=== PATIENT | male | born 1970 | race African-American/Black ===

== ENCOUNTER 2020-01-18 15:35 | Observation (INO) ==
[2020-01-18] MEDS ORDERED: SODIUM CHLORIDE 0.9% 1000ML 1,000 ML IV ONE (16:12)
[2020-01-18] MEDS ORDERED: FAMOTIDINE 20MG/5ML IV PUSH IV STA (16:12)
--- NOTE | 2020-01-18 16:17 | Emergency Department Note ---
History of Present Illness General Chief complaint: Throat Injury Stated complaint: DIFFICULTY SWALLOWING Time Seen by Provider: 01/18/20 15:53 Source: patient Mode of arrival: other Limitations: no limitations History of Present Illness Provider complaint: Neck swelling, vomiting Onset (ago): month(s) Radiation: non-radiation Maximum Pain Intensity: 0 Exacerbated By: + eating Associated symptoms: + chest pain and + weakness; no headaches and no shortness of breath Treatments prior to arrival: none This is a 49-year-old male who presents from local correction is complaining of several months of intermittent neck swelling, vomiting, weight loss, early satiety, and upper stomach irritation. Patient states the symptoms began happening intermittently and he tried to figure out if this was related to a certain food or temperature of food. Patient states it is progressively been getting worse. He is now down to eating only once a day because he does not want to vomit all the time. Patient states it feels as though the food goes down to the bottom of his chest/upper stomach and slowly gets stuck. He states approximately an hour after eating he will then vomit up everything he has just eaten. Patient denies noting any hematemesis. Patient denies any black or bloody stools. Patient denies any Co. abdominal pain. Patient admits to early satiety and a 25 pound weight loss over the last several months. Patient states he is frequently constipated and can only have a bowel movement if he takes a laxative. Patient states he has a twin brother who is currently hospitalized with heart problems. Patient states his father who is also a twin did have stomach cancer. Patient is a former smoker and former drinker. Patient was seen and evaluated here last night, was able to tolerate water at that time without any recurrent vomiting and was advised to follow-up with GI. Patient states he has never had an EGD or colonoscopy. Pt seen during a time of high acuity and national emergency pandemic while wearing PPE. Home Medications Home Medications Medication Instructions Recorded Confirmed Type Cetaphil 1 applic TOPICAL TID 06/19/19 01/18/20 History mirtazapine 45 mg PO HS 06/19/19 01/18/20 History aspirin [Ecotrin Low Strength] 81 mg PO QAM #30 tab 06/22/19 01/18/20 Rx atorvastatin 40 mg PO QAM #30 tab 06/22/19 01/18/20 Rx olopatadine 0.1 % eye drops 1 drops OP BID 11/28/19 01/18/20 History Lactobacillus acidophilus 0 mmu cells PO DAILY 01/18/20 01/18/20 History [Acidophilus] cetirizine [Zyrtec] 10 mg PO DAILY 01/18/20 01/18/20 History diphenhydramine HCl [Benadryl] 100 mg PO HS 01/18/20 01/18/20 History eplerenone 25 mg PO DAILY 01/18/20 01/18/20 History irbesartan 300 mg PO DAILY 01/18/20 01/18/20 History ketotifen fumarate 1 drp OPHTHALMIC (EYE) BID 01/18/20 01/18/20 History metoclopramide HCl [Reglan] 10 mg PO ACHS 01/18/20 01/18/20 History metoprolol tartrate 50 mg PO DAILY 01/18/20 01/18/20 History pantoprazole 40 mg PO DAILY 01/18/20 01/18/20 History sodium chloride [[place] Saline] 1 spray INTRANASAL BID 01/18/20 01/18/20 History sulfamethoxazole-trimethoprim 1 tab PO BID 01/18/20 01/18/20 History [Bactrim DS] Allergies Allergy/AdvReac Type Severity Reaction Status Date / Time fish derived Allergy Unknown Verified 01/17/20 02:27 shellfish derived Allergy Unknown Verified 01/18/20 16:47 Past Med/Surg History Medical History Anxiety Eczema History of alcohol abuse History of drug abuse History of tobacco use HTN (hypertension) Surgical History Status post tendon repair history left finger tendon repair Family History Brother Coronary heart disease [place] in early 40's Stroke, Onset Age: 42 Father Stroke Stomach cancer Mother Stroke Uncle Stomach cancer Social History (Updated 01/18/20 @ 20:07 by Shanda Herrera PA-C) Smoking Status: Former smoker Tobacco Type: Cigarettes Second Hand Exposure: No; Do You Dip or Chew Tobacco: No; Tobacco Cessation Education Requested by Patient: No Hx Alcohol Use: No Hx Substance Use: Yes Substance Use Type Other:: Quit 2012 - Prior cocaine, acid, mushrooms, marijuana Preferred Language: Azeri Communication Ability: Effective Improvement Rn Required: No Beliefs That Will Affect Care: None Current Living Situation: Other Current Living Situation Comment: [facility] Other Information That Helps Us Care for You: No Feels Safe at Home: Yes Safety Concerns: Feels Safe At This Time Review of Systems See HPI for pertinent positives & negatives. and A total of 10 systems reviewed and were otherwise negative Physical Exam Vital Signs Vital Signs - 24 hr 01/18/20 15:37 01/18/20 16:52 01/18/20 18:05 Temperature 36.8 C Temperature Source Oral Pulse Rate 87 Pulse Rate [Apical] 74 77 Pulse Rhythm [Apical] Regular Regular Pulse Strength [Apical] Normal Respiratory Rate 18 16 18 Respiratory Effort / Characteristics Non-Labored Non-Labored Spontaneous Respiratory Depth Normal Normal Respiratory Pattern Regular Blood Pressure 141/82 H Blood Pressure [Left Arm] 137/88 159/93 H Blood Pressure Mean 101 Blood Pressure Mean [Left Arm] 104 115 Blood Pressure Position [Left Arm] Sitting Lying Pulse Oximetry 96 97 100 Oxygen Delivery Method Room Air Room Air Room Air Sepsis Recent Fever Within 48 Hours No Sepsis New/Unexplained Change in Mental Status No Sepsis Action Taken by Nursing No Action Required 01/18/20 18:43 Temperature Temperature Source Pulse Rate Pulse Rate [Apical] 82 Pulse Rhythm [Apical] Regular Pulse Strength [Apical] Normal Respiratory Rate 18 Respiratory Effort / Characteristics Non-Labored Spontaneous Respiratory Depth Normal Respiratory Pattern Regular Blood Pressure Blood Pressure [Left Arm] 161/97 H Blood Pressure Mean Blood Pressure Mean [Left Arm] 118 Blood Pressure Position [Left Arm] Lying Pulse Oximetry 100 Oxygen Delivery Method Room Air Sepsis Recent Fever Within 48 Hours Sepsis New/Unexplained Change in Mental Status Sepsis Action Taken by Nursing GENERAL: alert, well appearing, well nourished, no distress, non-toxic EYE EXAM: normal conjunctiva, PERRL and EOM's grossly intact OROPHARYNX: no exudate, no erythema, lips, buccal mucosa, and tongue normal and mucous membranes are moist NECK: supple, no nuchal rigidity, no adenopathy, non-tender LUNGS: Clear to auscultation. Normal chest wall mechanics, no w/r/r HEART: no murmurs, S1 normal and S2 normal ABDOMEN: abdomen soft, non-tender, normo-active bowel sounds, no masses, no rebound or guarding. BACK: Back is symmetrical on inspection and there is no deformity, no midline tenderness, no CVA tenderness. SKIN: no rashes and no bruising UPPER EXTREMITIES: upper extremities are grossly normal. FROM, nml pulses b/l. LOWER EXTREMITIES: No pitting edema. FROM, nml pulses b/l. NEURO EXAM: Normal sensorium, cranial nerves II-XII grossly intact, normal speech, no gross weakness of arms, no gross weakness of legs. Gross sensation intact. Course Course 1839: Pt updated on results. 1919: Discussed with Dr. Soler. Administered Medications Aspirin (Aspirin 81 Mg Ectab) 81 mg PO QAM [facility] Stop: 02/18/20 08:59 Last Admin: 01/19/20 17:03 Dose: Not Given Documented by: [id number] Atorvastatin Calcium (Atorvastatin 40 Mg Tab) 40 mg PO QAM [facility] Stop: 02/18/20 08:59 Last Admin: 01/19/20 09:39 Dose: 40 mg Documented by: [id number] Cetirizine HCl (Cetirizine Hcl 10 Mg Tablet) 10 mg PO DAILY [facility] Stop: 02/18/20 08:59 Last Admin: 01/19/20 09:39 Dose: 10 mg Documented by: [id number] Sodium Chloride (Nss 1000ml) 1,000 mls @ 80 mls/hr IV .[id number] [facility] Stop: 01/20/20 09:29 Last Admin: 01/19/20 19:58 Dose: 80 mls/hr Documented by: [id number] Infusion: 01/19/20 19:58 Dose: 80 mls/hr Documented by: [id number] Admin: 01/19/20 09:37 Dose: 80 mls/hr Documented by: [id number] Irbesartan (Irbesartan 150 Mg Tab) 300 mg PO DAILY [facility] Stop: 02/18/20 08:59 Last Admin: 01/19/20 09:38 Dose: 300 mg Documented by: [id number] Metoclopramide HCl (Metoclopramide Hcl 10 Mg Tablet) 10 mg PO ACHS [facility] Stop: 02/17/20 21:13 Last Admin: 01/19/20 19:58 Dose: 10 mg Documented by: [id number] Admin: 01/19/20 17:04 Dose: 10 mg Documented by: [id number] Admin: 01/19/20 16:27 Dose: Not Given Documented by: [id number] Admin: 01/19/20 09:39 Dose: 10 mg Documented by: [id number] Admin: 01/18/20 21:47 Dose: 10 mg Documented by: [id number] Metoprolol Tartrate (Metoprolol Tartrate 50 Mg Tab) 50 mg PO DAILY [facility] Stop: 02/18/20 08:59 Last Admin: 01/19/20 09:48 Dose: 50 mg Documented by: [id number] Mirtazapine (Mirtazapine Soltab 15 Mg) 45 mg PO HS [facility] Stop: 02/17/20 21:13 Last Admin: 01/19/20 19:58 Dose: 45 mg Documented by: [id number] Admin: 01/18/20 21:47 Dose: 45 mg Documented by: [id number] Miscellaneous (Eplerenone~Order Awaiting Action) 1 ea N/A QS [facility] Stop: 02/17/20 21:29 Last Admin: 01/19/20 17:03 Dose: Not Given Documented by: [id number] Admin: 01/19/20 09:55 Dose: Not Given Documented by: [id number] Admin: 01/18/20 23:53 Dose: Not Given Documented by: [id number] Admin: 01/18/20 22:28 Dose: Not Given Documented by: [id number] Pantoprazole Sodium (Pantoprazole 40 Mg Tab) 40 mg PO BID [facility] Stop: 02/18/20 20:59 Last Admin: 01/19/20 19:57 Dose: 40 mg Documented by: [id number] Sodium Chloride (Sodium Chloride 0.65% Na Soln 45 Ml ([place])) 1 sprays NA BID [facility] Stop: 02/17/20 21:13 Last Admin: 01/19/20 19:57 Dose: Not Given Documented by: [id number] Admin: 01/19/20 09:36 Dose: 1 sprays Documented by: [id number] Admin: 01/18/20 22:42 Dose: 1 sprays Documented by: [id number] Discontinued Medications Famotidine (Famotidine 20mg/5ml Iv Push) 20 mg IV ONE [facility]A Stop: 01/18/20 16:13 Last Admin: 01/18/20 16:39 Dose: 20 mg Documented by: [id number] Fentanyl Citrate (Fentanyl Citrate 100 Mcg/2 Ml Vial) Confirm Administered Dose 100 mcg .ROUTE .STK-MED ONE Stop: 01/19/20 12:32 Last Admin: 01/19/20 19:29 Dose: Not Given Documented by: [id number] Sodium Chloride (Nss 1000ml) 1,000 mls @ 999 mls/hr IV .Q1H1M ONE Stop: 01/18/20 17:12 Last Infusion: 01/18/20 17:40 Dose: 0 mls/hr Documented by: [id number] Admin: 01/18/20 16:39 Dose: 999 mls/hr Documented by: [id number] Magnesium Sulfate/Dextrose (Magnesium Sulfate / D5w) 1 gm in 100 mls @ 100 mls/hr IV Q1H [facility] Stop: 01/18/20 20:32 Last Infusion: 01/18/20 20:49 Dose: 0 mls/hr Documented by: [id number] Admin: 01/18/20 19:49 Dose: 100 mls/hr Documented by: [id number] Infusion: 01/18/20 19:45 Dose: 100 mls/hr Documented by: [id number] Admin: 01/18/20 18:45 Dose: 100 mls/hr Documented by: [id number] Potassium Chloride 10 meq/ (Sodium Chloride) 1,005 mls @ 100 mls/hr IV .Q10H3M [facility] Stop: 02/17/20 18:44 Last Infusion: 01/19/20 01:36 Dose: 0 mls/hr Documented by: [id number] Admin: 01/18/20 19:13 Dose: 100 mls/hr Documented by: [id number] Potassium Chloride (K Mac / Wtr) 10 meq in 100 mls @ 100 mls/hr IV Q1H [facility] Stop: 01/18/20 22:17 Last Infusion: 01/19/20 00:39 Dose: 0 mls/hr Documented by: [id number] Admin: 01/18/20 23:39 Dose: 100 mls/hr Documented by: [id number] Infusion: 01/18/20 23:39 Dose: 100 mls/hr Documented by: [id number] Admin: 01/18/20 22:44 Dose: 100 mls/hr Documented by: [id number] Potassium Chloride/Dextrose/Sod Cl (D5nss + 20meq Kcl) 20 meq in 1,000 mls @ 75 mls/hr IV .[id number] [facility] Stop: 02/17/20 21:59 Last Infusion: 01/19/20 12:25 Dose: 0 mls/hr Documented by: [id number] Admin: 01/18/20 22:41 Dose: 75 mls/hr Documented by: [id number] Calcium Gluconate 1,000 mg/ (Sodium Chloride) 60 mls @ 240 mls/hr IV 1830 ONE Stop: 01/19/20 18:44 Last Infusion: 01/19/20 20:12 Dose: 0 mls/hr Documented by: [id number] Admin: 01/19/20 19:57 Dose: 240 mls/hr Documented by: [id number] Ioversol (Ioversol 100ml) 93 ml IV ONCE ONE Stop: 01/18/20 18:13 Last Admin: 01/18/20 18:13 Dose: 93 ml Documented by: [id number] Lidocaine HCl (Lidocaine Hcl 2% 2 Ml Vial/Amp(20mg/Ml)) Confirm Administered Dose 4 ml INFIL .STK-MED ONE Stop: 01/19/20 13:24 Last Admin: 01/19/20 19:29 Dose: Not Given Documented by: [id number] Magnesium Oxide (Magnesium Oxide 400 Mg Tab) 400 mg PO BID [facility] Stop: 02/17/20 20:59 Last Admin: 01/18/20 22:41 Dose: 400 mg Documented by: [id number] Miscellaneous (Cetaphil~Order Awaiting Action) 1 ea N/A QS [facility] Stop: 02/17/20 21:29 Last Admin: 01/19/20 09:52 Dose: Not Given Documented by: [id number] Admin: 01/18/20 23:53 Dose: Not Given Documented by: [id number] Admin: 01/18/20 22:28 Dose: Not Given Documented by: [id number] Miscellaneous (Ketotifen~Order Awaiting Action) 1 ea N/A QS [facility] Stop: 02/17/20 21:29 Last Admin: 01/19/20 09:54 Dose: Not Given Documented by: [id number] Admin: 01/18/20 23:53 Dose: Not Given Documented by: [id number] Admin: 01/18/20 22:28 Dose: Not Given Documented by: [id number] Miscellaneous (Olopatatdine 0.1%~Order Awaiting Action) 1 ea N/A QS [facility] Stop: 02/17/20 21:29 Last Admin: 01/19/20 09:54 Dose: Not Given Documented by: [id number] Admin: 01/18/20 23:53 Dose: Not Given Documented by: [id number] Admin: 01/18/20 22:29 Dose: Not Given Documented by: [id number] Pantoprazole Sodium (Pantoprazole 40 Mg Tab) 40 mg PO DAILY [facility] Stop: 02/18/20 08:59 Last Admin: 01/19/20 09:39 Dose: 40 mg Documented by: [id number] Phenylephrine HCl (Phenylephrine 100mcg/Ml 5ml Syr) Confirm Administered Dose 100 mcg .ROUTE .STK-MED ONE Stop: 01/19/20 13:24 Last Admin: 01/19/20 19:29 Dose: Not Given Documented by: [id number] Potassium Chloride (Potassium Chloride 20 Meq Tabcr) 40 meq PO NOW STA Stop: 01/18/20 18:32 Last Admin: 01/18/20 18:45 Dose: 40 meq Documented by: [id number] Potassium Chloride (Potassium Chloride 20 Meq/15 Ml Udc) 40 meq PO NOW [facility] Stop: 01/18/20 20:19 Last Admin: 01/18/20 22:42 Dose: 40 meq Documented by: [id number] Propofol (Propofol Iv Emulsion 10 Mg/Ml 20 Ml Vial) Confirm Administered Dose 400 mg IV .STK-MED ONE Stop: 01/19/20 13:24 Last Admin: 01/19/20 19:29 Dose: Not Given Documented by: [id number] Critical Care Time Critical Care Time: Yes Total Critical Care Time: 35 Critical care of 35 min performed to assess and manage high likelihood of life- threatening chest pain, involving labs and imaging performed with assessment to evaluate chest pain and electrolyte abnormality diagnosis with frequent reassessment. This time includes bedside time, treatment discussions with patient/family/consultants, documentation time and excludes procedure time. Medical Decision Making Differential Diagnosis Differential: Gastroenteritis, Food Borne, Esophageal Perforation, , Electrolyte Abnormality, Dehydration, Intraabdominal Infection, UTI/Pyelonephritis, Bowel Obstruction, Biliary Pathology, amongst other pathology entertained. Medical Records Attestation: I reviewed the patient's medical records. Home Medications Current Medication List: was personally reviewed by me Laboratory Data Attestation: I reviewed the patient's lab results. Result diagrams: 01/19/20 01:08 01/19/20 16:00 Lab Results 01/18/20 01/18/20 01/18/20 Range/Units 16:32 16:32 18:01 WBC 7.67 (4.8-10.8) K/uL RBC 4.91 (4.7-6.1) M/uL Hgb 14.3 (14.0-18.0) g/dL Hct 42.5 (42-52) % MCV 86.6 (80-100) fL MCH 29.1 (25-34) pg MCHC 33.6 (32-36) g/dL RDW Std Deviation 42.1 (36.4-46.3) fL RDW Coeff of Georgette 13.2 (11.5-14.5) % Plt Count 260 (130-400) K/uL MPV 11.5 H (7.4-10.4) fL Immature Gran % (Auto) 0.1 % Neut % (Auto) 48.8 % Lymph % (Auto) 35.6 % [place] % (Auto) 14.0 % Eos % (Auto) 1.2 % Baso % (Auto) 0.3 % Neut # (Auto) 3.75 (1.4-6.5) K/uL Lymph # (Auto) 2.73 (1.2-3.4) K/uL [place] # (Auto) 1.07 H (0.11-0.59) K/uL Eos # (Auto) 0.09 (0-0.5) K/uL Baso # (Auto) 0.02 (0-0.2) K/uL Immature Gran # (Auto) 0.01 (0.00-0.02) K/uL Sodium 133 L (136-145) mmol/L Potassium 2.1 L* (3.5-5.1) mmol/L Chloride 102 (98-107) mmol/L Carbon Dioxide 23 (21-32) mmol/L Anion Gap 8.0 (3-11) BUN 10 (7-18) mg/dl Creatinine 1.38 (0.6-1.4) mg/dl Est Cr Clr Drug Dosing 78.5 ml/min Est GFR ( Amer) 70.1 Est GFR (Non-Af Amer) 60.5 BUN/Creatinine Ratio 7.3 L (10-20) Glucose 108 H (70-99) mg/dl Calcium 9.3 (8.5-10.1) mg/dl Magnesium 1.0 L (1.8-2.4) mg/dl Total Bilirubin 0.8 (0.2-1) mg/dl AST 10 L (15-37) U/L ALT 31 (12-78) U/L Alkaline Phosphatase 83 (45-117) U/L Troponin I 0.050 H* (0-0.045) ng/ml Total Protein 8.9 H (6.4-8.2) gm/dl Albumin 4.2 (3.4-5.0) gm/dl Globulin 4.7 H (2.5-4.0) gm/dl Albumin/Globulin Ratio 0.9 (0.9-2) Lipase 227 (73-393) U/L TSH 0.572 (0.300-4.500) uIu/ml Imaging Data Radiologist's Impression: CT SCAN OF THE NECK WITH IV CONTRAST CLINICAL HISTORY: Intermittent neck swelling. COMPARISON STUDY: CT angiogram of the neck dated 06/19/2019. TECHNIQUE: Following the IV administration of 93 cc of Optiray 320, CT scan of the soft tissues of the neck was performed from the skull base to the upper chest. Images are reviewed in the axial, sagittal, and coronal planes. IV contrast was administered without complication. A dose lowering technique was utilized adhering to the principles of ALARA. CT DOSE: 1834.20 mGy.cm FINDINGS: Pharynx: The nasopharynx, oropharynx, and laryngeal pharynx are normal in appearance. The pharyngeal airway is widely patent. There is no evidence of mass lesion. The vocal cords are symmetric. The parapharyngeal fat is well maintained. The prevertebral/retropharyngeal soft tissues are within normal limits. The epiglottis is normal. Lymphadenopathy: No cervical lymphadenopathy is seen Thyroid: Normal in size and attenuation. Salivary glands: The parotid and submandibular glands are within normal limits. Brain parenchyma: The visualized brain parenchyma at the skull base is normal in appearance. Vascular structures: The carotid arteries and jugular veins are patent bilaterally. Skeletal structures: Imaged portions of the calvarium at the skull base are within normal limits. The cervical spine appears intact. No lytic or blastic lesion is seen. Orbits: The bony orbits are intact. Orbital contents are normal in appearance. Sinuses and mastoids: The visualized paranasal sinuses are clear. The mastoid air cells are well pneumatized. Lung apices: Visualized apical lung parenchyma is clear. IMPRESSION: No acute abnormality is identified. ACT 112: Negative or not required by law. Electronically signed by: Riaz Wise M.D. 01/18/2020 6:[address] SCAN OF THE ABDOMEN AND PELVIS WITH IV CONTRAST CLINICAL HISTORY: Weight loss. Early satiety. Vomiting. COMPARISON STUDY: No priors. TECHNIQUE: Following the IV administration of 93 cc of Optiray 320, CT scan of the abdomen and pelvis is performed from the lung bases to the proximal femora. Images are reviewed in the axial, sagittal, and coronal planes. IV contrast was administered without complication. A dose lowering technique was utilized adhering to the principles of ALARA. FINDINGS: Lung bases: The heart is normal in size and without pericardial effusion. The lung bases are clear. There is a small hiatal hernia. Liver: The contrast-enhanced liver is normal in size, contour, and attenuation. There is no intrahepatic biliary ductal dilatation. The hepatic veins and portal veins are patent. Gallbladder: Unremarkable. Spleen: Normal in size and attenuation. Pancreas: Unremarkable. Adrenal glands: Unremarkable. Kidneys: The contrast enhanced kidneys are normal in size and without hydr onephrosis. The kidneys enhance symmetrically. Abdominal vasculature: The abdominal aorta is normal in course and caliber noting scattered foci of atherosclerotic calcification. Bowel: There is no bowel obstruction. There are scattered colonic diverticula without CT evidence of acute diverticulitis. The appendix is well-visualized and normal. Peritoneum: There is no intraperitoneal free air or abdominal ascites. There is a fat-containing umbilical hernia. A fat-containing supraumbilical hernia seen on image #[id number]. Lymphadenopathy: None. Pelvic viscera: The bladder wall appears thickened and trabeculated. There is mild pericystic stranding. The prostate and seminal vesicles are normal as imaged. Skeletal structures: No lytic or blastic lesions are seen. IMPRESSION: 1. The bladder wall is thickened and trabeculated suggesting chronic outlet obstruction. Mild pericystic stranding is noted. Correlation with urinalysis is recommended. 2. There is no bowel obstruction. 3. Additional findings as above. ACT 112: Negative or not required by law. Electronically signed by: Riaz Wise M.D. 01/18/2020 7:04 PM ECG Data Attestation: I personally reviewed and interpreted this ECG as follows: Indication: + chest pain Rate (beats per minute): 75 Rhythm: + normal sinus ECG [place]: + Normal ECG ST segments: + T-wave inversions (V4-6) Comparison ECG Date: from (06/22/2019) Change: no significant change Blood Pressure Blood Pressure Findings: Normal blood pressure MDM Narrative This is a 49-year-old male presents emergency department with concern for recurrent vomiting, weight loss, and dysphasia. Patient states symptoms have been going on for many weeks and progressively getting worse. Patient initially seen and evaluated and sent back to the correction to follow-up with GI. Patient feels the symptoms are getting worse and is now having increased chest pain with this. Patient with stable vital signs here. Labs sent, CTs performed, EKG obtained. Patient found to have significant electrolyte abnormalities, likely due to poor p.o. intake or subsequent vomiting without absorption of electrolytes. Patient's potassium was 2.1 and magnesium 1.0. Patient started on repletion while in the emergency room. Patient's other CT imaging did not reveal any additional acute pathology. Due to concern for patient's worsening symptoms, and acute electrolyte abnormalities, case was discussed with hospitalist for additional evaluation management. I suspect patient would benefit from GI evaluation and likely EGD. Patient was found to have a mildly elevated troponin. Patient had no other symptoms to suggest ACS and his EKG was unchanged. Patient does have risk factors for coronary artery disease. No evidence of perforation or GI bleed. Patient made hemodynamically stable in the emergency room. An order was placed for continuous cardiac monitoring. The monitor shows a rate of 68_ with _normal sinus_ rhythm. Impression & Plan Vomiting, Elevated troponin, Hypokalemia, Dysphagia, Hypomagnesemia, HTN (hypertension) Discharge Plan Visit Data Chief Complaint: Throat Injury Stated Complaint: DIFFICULTY SWALLOWING ED Provider: Mariluz Garcia Discharge Problem: Vomiting, Elevated troponin, Hypokalemia, Dysphagia, Hypomagnesemia, HTN (hypertension) Patient Disposition: Admitted As Inpatient Discharge Instructions Interventions: ED Discharge Assessment Last Done: 01/18/20 20:24 Discharge Problem: Vomiting Qualifiers: Vomiting type: unspecified Vomiting Intractability: non-intractable Nausea presence: with nausea Qualified Code(s): R11.2 - Nausea with vomiting, unspecified HTN (hypertension) Qualifiers: Hypertension type: essential hypertension Qualified Code(s): I10 - Essential (primary) hypertension
[2020-01-18 16:41] LABS: Basophils # (auto) 0.02 K/uL (0-0.2); Basophils % (auto) 0.3 %; Eosinophils # (auto) 0.09 K/uL (0-0.5); Eosinophils % (auto) 1.2 %; Hematocrit (blood only) 42.5 % (42-52); Hemoglobin 14.3 g/dL (14.0-18.0); Immature Granulocytes # (auto) 0.01 K/uL (0.00-0.02); Immature Granulocytes % (auto) 0.1 %; Lymphocytes # (auto) 2.73 K/uL (1.2-3.4); Lymphocytes % (auto) 35.6 %; Mean Corpuscular Hemoglobin 29.1 pg (25-34); Mean Corpuscular Hgb Conc 33.6 g/dL (32-36); Mean Corpuscular Volume 86.6 fL (80-100); Mean Platelet Volume 11.5 fL (7.4-10.4); Monocytes # (auto) 1.07 K/uL (0.11-0.59); Neutrophils # (auto) 3.75 K/uL (1.4-6.5); Neutrophils % (auto) 48.8 %; Platelet Count 260 K/uL (130-400); RDW Coefficient of Variation 13.2 % (11.5-14.5); RDW Standard Deviation 42.1 fL (36.4-46.3); Red Blood Count 4.91 M/uL (4.7-6.1); White Blood Count 7.67 K/uL (4.8-10.8)
[2020-01-18 17:27] LABS: Albumin Globulin Ratio 0.9 (0.9-2); Albumin Level 4.2 gm/dl (3.4-5.0); BUN Creatinine Ratio 7.3 (10-20); Bilirubin,Total 0.8 mg/dl (0.2-1); Calcium 9.3 mg/dl (8.5-10.1); Creatinine Clr Calc Pharmacy 78.5 ml/min; Est GFR (African American) 70.1; Est GFR (Non-African American) 60.5; Globulin 4.7 gm/dl (2.5-4.0); Thyroid Stimulating Hormone 0.572 uIu/ml (0.300-4.500); Total Protein 8.9 gm/dl (6.4-8.2); Troponin I 0.05 ng/ml (0-0.045)
[2020-01-18] MEDS ORDERED: IOVERSOL 100ml IV ONE (18:12)
[2020-01-18 18:31] LABS: Potassium 2.1 mmol/L (3.5-5.1)
[2020-01-18] MEDS ORDERED: POTASSIUM CHLORIDE 20 MEQ TABCR PO STA (18:31)
[2020-01-18] MEDS ORDERED: POTASSIUM CHLORIDE 10 MEQ in SODIUM CHLORIDE 0.9% 1000ML 1,000 ML IV SCH (18:45)
[2020-01-18] MEDS: MAGNESIUM SULFATE / D5W 1 GM/100 ML BAG IV SCH ×2 (18:45→19:49)
--- NOTE | 2020-01-18 18:58 | CT Scan Report ---
CT SCAN OF THE NECK WITH IV CONTRAST CLINICAL HISTORY: Intermittent neck swelling. COMPARISON STUDY: CT angiogram of the neck dated 06/19/2019. TECHNIQUE: Following the IV administration of 93 cc of Optiray 320, CT scan of the soft tissues of th e neck was performed from the skull base to the upper chest. Images are reviewed in the axial, sagitt al, and coronal planes. IV contrast was administered without complication. A dose lowering techniqu e was utilized adhering to the principles of ALARA. CT DOSE: 1834.20 mGy.cm FINDINGS: Pharynx: The nasopharynx, oropharynx, and laryngeal pharynx are normal in appearance. The pharyngeal airway is widely patent. There is no evidence of mass lesion. The vocal cords are symmetric. The para pharyngeal fat is well maintained. The prevertebral/retropharyngeal soft tissues are within normal li mits. The epiglottis is normal. Lymphadenopathy: No cervical lymphadenopathy is seen Thyroid: Normal in size and attenuation. Salivary glands: The parotid and submandibular glands are within normal limits. Brain parenchyma: The visualized brain parenchyma at the skull base is normal in appearance. Vascular structures: The carotid arteries and jugular veins are patent bilaterally. Skeletal structures: Imaged portions of the calvarium at the skull base are within normal limits. The cervical spine appears intact. No lytic or blastic lesion is seen. Orbits: The bony orbits are intact. Orbital contents are normal in appearance. Sinuses and mastoids: The visualized paranasal sinuses are clear. The mastoid air cells are well pneu matized. Lung apices: Visualized apical lung parenchyma is clear. IMPRESSION: No acute abnormality is identified. ACT 112: Negative or not required by law. Electronically signed by: Riaz Wise M.D. 01/18/2020 6:56 PM
--- NOTE | 2020-01-18 19:05 | CT Scan Report ---
CT SCAN OF THE ABDOMEN AND PELVIS WITH IV CONTRAST CLINICAL HISTORY: Weight loss. Early satiety. Vomiting. COMPARISON STUDY: No priors. TECHNIQUE: Following the IV administration of 93 cc of Optiray 320, CT scan of the abdomen and pelvi s is performed from the lung bases to the proximal femora. Images are reviewed in the axial, sagittal , and coronal planes. IV contrast was administered without complication. A dose lowering technique wa s utilized adhering to the principles of ALARA. FINDINGS: Lung bases: The heart is normal in size and without pericardial effusion. The lung bases are clear. T here is a small hiatal hernia. Liver: The contrast-enhanced liver is normal in size, contour, and attenuation. There is no intrahepa tic biliary ductal dilatation. The hepatic veins and portal veins are patent. Gallbladder: Unremarkable. Spleen: Normal in size and attenuation. Pancreas: Unremarkable. Adrenal glands: Unremarkable. Kidneys: The contrast enhanced kidneys are normal in size and without hydronephrosis. The kidneys enh ance symmetrically. Abdominal vasculature: The abdominal aorta is normal in course and caliber noting scattered foci of a therosclerotic calcification. Bowel: There is no bowel obstruction. There are scattered colonic diverticula without CT evidence of acute diverticulitis. The appendix is well-visualized and normal. Peritoneum: There is no intraperitoneal free air or abdominal ascites. There is a fat-containing umbi lical hernia. A fat-containing supraumbilical hernia seen on image #[id number]. Lymphadenopathy: None. Pelvic viscera: The bladder wall appears thickened and trabeculated. There is mild pericystic strandi ng. The prostate and seminal vesicles are normal as imaged. Skeletal structures: No lytic or blastic lesions are seen. IMPRESSION: 1. The bladder wall is thickened and trabeculated suggesting chronic outlet obstruction. Mild pericys tic stranding is noted. Correlation with urinalysis is recommended. 2. There is no bowel obstruction. 3. Additional findings as above. ACT 112: Negative or not required by law. Electronically signed by: Riaz Wise M.D. 01/18/2020 7:04 PM
--- NOTE | 2020-01-18 20:03 | History & Physical Report ---
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 -Dysphagia, vomiting, early satiety and a 20 lb weight loss in past month -No acute abnormality on CT soft tissue neck or CT abdomen pelvis -Ddx dysmotility issue in setting of possible amyloid disease of heart vs malignant process. + Family h/o stomach cancer -NPO except crushed medications, routine GI consult, IV fluids (2) Hypomagnesemia: (3) Hypokalemia: Initial K of 2.1 and Mg of 1.0. Replacing with repeat labs at 0100 (4) Left arm weakness: Transient episode of left arm weakness this morning that resolved spontaneously -No neurological deficits on exam. History of CVA in the past -CT head, neuro checks. Consider MRI brain if symptoms persist (5) Elevated troponin: Troponin persistently elevated in the past. Has decreased from 0.065 yesterday to 0.050 today. 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 Concern for amyloid heart muscle disease in the past. Recommended to f/u with oncology but has not yet been seen (7) HTN (hypertension): Continue eplerenone, irbesartan, metoprolol tartrate (8) History of CVA (cerebrovascular accident): Continue aspirin, statin DVT Ppx: SCDs in setting of possible procedure tomorrow Code status: FULL PCP: SANDY Rodriguez Dispo: Admitted to PCU. Discharge planning ordered. Patient seen in collaboration with Dr. Christianson. Please see addendum. 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 Initially presented to ED last night and was discharged home with GI follow up in clinic but symptoms have worsened. After eating, patient feels that his neck swells and food gets stuck. As difficulty swallowing has gotten worse, patient has been dissolving pills in liquids so they don't get stuck in throat. Has been regurgitating foods and tolerates one meal per day, endorsing early satiety. Denies issues swallowing liquids. Was taking Bactrim for "bacteria in stomach" but stopped taking 2 days ago. Denies hematemesis, hemoptysis, melena or hematochezia. Approximate 20 pound weight loss in one month as well as constipation. Also endorsed left arm weakness this morning that has since resolved. No other neurological symptoms. Denies fever, chills, lightheadedness, syncope, chest pain, palpitations, SOB, dysuria or diarrhea. History of alcohol and tobacco use. Denies previous EGD/colonoscopy. History of stomach cancer in both father and uncle. Allergies Allergy/AdvReac Type Severity Reaction Status Date / Time fish derived Allergy Unknown Verified 01/17/20 02:27 shellfish derived Allergy Unknown Verified 01/18/20 16:47 Home Medications Home Medications Medication Instructions Recorded Confirmed Type Cetaphil 1 applic TOPICAL TID 06/19/19 01/18/20 History mirtazapine 45 mg PO HS 06/19/19 01/18/20 History aspirin [Ecotrin Low Strength] 81 mg PO QAM #30 tab 06/22/19 01/18/20 Rx atorvastatin 40 mg PO QAM #30 tab 06/22/19 01/18/20 Rx olopatadine 0.1 % eye drops 1 drops OP BID 11/28/19 01/18/20 History Lactobacillus acidophilus 0 mmu cells PO DAILY 01/18/20 01/18/20 History [Acidophilus] cetirizine [Zyrtec] 10 mg PO DAILY 01/18/20 01/18/20 History diphenhydramine HCl [Benadryl] 100 mg PO HS 01/18/20 01/18/20 History eplerenone 25 mg PO DAILY 01/18/20 01/18/20 History irbesartan 300 mg PO DAILY 01/18/20 01/18/20 History ketotifen fumarate 1 drp OPHTHALMIC (EYE) BID 01/18/20 01/18/20 History metoclopramide HCl [Reglan] 10 mg PO ACHS 01/18/20 01/18/20 History metoprolol tartrate 50 mg PO DAILY 01/18/20 01/18/20 History pantoprazole 40 mg PO DAILY 01/18/20 01/18/20 History sodium chloride [Raymond Saline] 1 spray INTRANASAL BID 01/18/20 01/18/20 History sulfamethoxazole-trimethoprim 1 tab PO BID 01/18/20 01/18/20 History [Bactrim DS] Past Med/Surg History Medical History Anxiety Eczema History of alcohol abuse History of drug abuse History of tobacco use HTN (hypertension) Surgical History Status post tendon repair history left finger tendon repair Family History Brother Coronary heart disease [place] in early 40's Stroke, Onset Age: 42 Father Stroke Stomach cancer Mother Stroke Uncle Stomach cancer Social History (Updated 01/18/20 @ 20:07 by Shanda Herrera PA-C) Smoking Status: Former smoker Tobacco Type: Cigarettes Hx Alcohol Use: No Hx Substance Use: Yes (former use but not for 10 years ) Substance Use Type Other:: Quit 2011 - Prior cocaine, acid, mushrooms, marijuana Current Living Situation: Other Current Living Situation Comment: correctional facility Feels Safe at Home: Yes Review of Systems Review of Systems: At least ten systems reviewed and negative except as noted in the HPI. Physical Exam Physical Exam: Please see Dr. Christianson's addendum for physical exam details. Results & Data Results & Data ([facility]) Vital Signs (Past 12 Hours) Vital Signs Temp Pulse Pulse Resp BP BP Pulse Ox 01/18/20 19:30 88 26 H 138/115 H 97 01/18/20 19:00 81 23 147/103 H 98 01/18/20 18:43 82 18 161/97 H 100 01/18/20 18:05 77 18 159/93 H 100 01/18/20 16:52 74 16 137/88 97 01/18/20 15:37 36.8 C 87 18 141/82 H 96 Laboratory Results Short CBC 01/18/20 01/18/20 01/18/20 Range/Units 16:32 16:32 18:01 WBC 7.67 (4.8-10.8) K/uL RBC 4.91 (4.7-6.1) M/uL Hgb 14.3 (14.0-18.0) g/dL Hct 42.5 (42-52) % MCV 86.6 (80-100) fL MCH 29.1 (25-34) pg MCHC 33.6 (32-36) g/dL RDW Std Deviation 42.1 (36.4-46.3) fL RDW Coeff of Georgette 13.2 (11.5-14.5) % Plt Count 260 (130-400) K/uL MPV 11.5 H (7.4-10.4) fL Immature Gran % (Auto) 0.1 % Neut % (Auto) 48.8 % Lymph % (Auto) 35.6 % Conway % (Auto) 14.0 % Eos % (Auto) 1.2 % Baso % (Auto) 0.3 % Neut # (Auto) 3.75 (1.4-6.5) K/uL Lymph # (Auto) 2.73 (1.2-3.4) K/uL Conway # (Auto) 1.07 H (0.11-0.59) K/uL Eos # (Auto) 0.09 (0-0.5) K/uL Baso # (Auto) 0.02 (0-0.2) K/uL Immature Gran # (Auto) 0.01 (0.00-0.02) K/uL Sodium 133 L (136-145) mmol/L Potassium 2.1 L* (3.5-5.1) mmol/L Chloride 102 (98-107) mmol/L Carbon Dioxide 23 (21-32) mmol/L Anion Gap 8.0 (3-11) BUN 10 (7-18) mg/dl Creatinine 1.38 (0.6-1.4) mg/dl Est Cr Clr Drug Dosing 78.5 ml/min Est GFR ( Amer) 70.1 Est GFR (Non-Af Amer) 60.5 BUN/Creatinine Ratio 7.3 L (10-20) Glucose 108 H (70-99) mg/dl Calcium 9.3 (8.5-10.1) mg/dl Magnesium 1.0 L (1.8-2.4) mg/dl Total Bilirubin 0.8 (0.2-1) mg/dl AST 10 L (15-37) U/L ALT 31 (12-78) U/L Alkaline Phosphatase 83 (45-117) U/L Troponin I 0.050 H* (0-0.045) ng/ml Total Protein 8.9 H (6.4-8.2) gm/dl Albumin 4.2 (3.4-5.0) gm/dl Globulin 4.7 H (2.5-4.0) gm/dl Albumin/Globulin Ratio 0.9 (0.9-2) Lipase 227 (73-393) U/L TSH 0.572 (0.300-4.500) uIu/ml BMP 01/18/20 01/18/20 16:32 18:01 Sodium 133 L Potassium 2.1 L* Chloride 102 Carbon Dioxide 23 BUN 10 Creatinine 1.38 Glucose 108 H Calcium 9.3 Cardiac Enzymes 01/18/20 Range/Units 16:32 Troponin I 0.050 H* (0-0.045) ng/ml Liver Function 01/18/20 01/18/20 Range/Units 16:32 18:01 Total Bilirubin 0.8 (0.2-1) mg/dl AST 10 L (15-37) U/L ALT 31 (12-78) U/L Alkaline Phosphatase 83 (45-117) U/L Albumin 4.2 (3.4-5.0) gm/dl Diagnostic Findings Soft tissue neck CT: IMPRESSION: No acute abnormality is identified. CT abd/pelvis: IMPRESSION: 1. The bladder wall is thickened and trabeculated suggesting chronic outlet obstruction. Mild pericystic stranding is noted. Correlation with urinalysis is recommended. 2. There is no bowel obstruction. 3. Additional findings as above. Code Status & VTE Plan VTE Prophylaxis Plan VTE Prophylaxis will be ordered: Yes Supervising Physician Co-Signing Physician Notes Attending Addendum: care coordinated with Chris Wallace and Shanda Herrera please refer to their notes for full details, I agree with their notes patient seen and examined, records reviewed by myself as well on exam, patient seen resting in bed, sitting up reports progressive dysphagia, odynophagia for the past two months, more on solids, and recently experiencing regurgitation, weight loss denies abdominal pain, hematochezia, melena, hematemesis also reports intermittent episodes of left arm numbness, no other focal neurologic deficits no other symptoms VS noted and reviewed oriented x 3, not in distress, speaks in sentences with no effort nor accessory muscle use head and neck: no masses, lymphadenopathy normal rate, regular rhythm, no murmurs clear breath sounds bilaterally non distended, soft, nontender no bipedal edema, erythema, warmth no neuro deficits WBC 7.6 Hg 14[address] abd/pelvis: 1. The bladder wall is thickened and trabeculated suggesting chronic outlet obstruction. Mild pericystic stranding is noted. Correlation with urinalysis is recommended. 2. There is no bowel obstruction. 3. Additional findings as above. Soft Tissue Neck CT: IMPRESSION: No acute abnormality is identified. ASSESSMENT AND PLAN DYSPHAGIA R/O ESOPHAGEAL OBSTRUCTION, STRICTURE, DYSMOTILITY, MASS NPO except meds, IV fluids GI consult, possible EGD tomorrow HYPOKALEMIA, HYPOMAGNESEMIA from poor oral intake replete with PO and IV K and Mg LEFT ARM NUMBNESS, INTERMITTENT HISTORY OF CVA 05/2019 CT head ordered continue ASA other diagnoses and plan of care as per FABIOLA Herrera's notes Zander Christianson MD (1) Dysphagia Dysphagia type: unspecified Qualified Code(s): R13.10 - Dysphagia, unspecified (2) HTN (hypertension) Hypertension type: essential hypertension Qualified Code(s): I10 - Essential (primary) hypertension
[2020-01-18] MEDS ORDERED: POTASSIUM CHLORIDE 20 MEQ/15 ML UDC PO STA (20:18)
--- NOTE | 2020-01-18 20:53 | CT Scan Report ---
CT SCAN OF THE BRAIN WITHOUT IV CONTRAST CLINICAL HISTORY: Left upper extremity weakness. COMPARISON STUDY: CT of the brain dated 06/19/2019. MRI of the brain dated 06/20/2019. TECHNIQUE: Unenhanced axial CT scan of the brain is performed from the vertex to the skull base. A d ose lowering technique was utilized adhering to the principles of ALARA. There is residual contrast t hroughout the vasculature from today's earlier examination. CT DOSE: 537.48 mGy.cm FINDINGS: Brain parenchyma: The brain parenchyma is normal in appearance. There is no hemorrhage, mass effect, or evidence of acute territorial ischemia by CT criteria. Lipscomb-white matter differentiation is preser dana. No extra-axial fluid collection is seen. Ventricles, sulci, cisterns: Normal in configuration. Intracranial vasculature: The visualized intracranial vasculature at the skull base is normal in appe arance. Calvarium: Unremarkable. Sinuses and mastoids: The visualized paranasal sinuses are clear. The mastoid air cells are well pneu matized. Orbits: The bony orbits are grossly intact. IMPRESSION: There is no hemorrhage, mass effect, or evidence of acute territorial ischemia by CT ernie black. ACT 112: Negative or not required by law. Electronically signed by: Riaz Wise M.D. 01/18/2020 8:51 PM
[2020-01-18] MEDS ORDERED: MAGNESIUM OXIDE 400 MG TAB PO SCH (21:00)
[2020-01-18] MEDS ORDERED: ONDANSETRON INJ 2 MG/ML 2 ML VIAL IV PRN (21:14)
[2020-01-18] MEDS: MIRTAZAPINE SOLTAB 15 MG PO SCH (21:47)
[2020-01-18] MEDS: METOCLOPRAMIDE HCL 10 MG TABLET PO SCH (21:47)
[2020-01-18] MEDS ORDERED: D5NSS + 20MEQ KCL 20 MEQ/1,000 ML BAG IV SCH (22:00)
[2020-01-18] MEDS: EPLERENONE~ORDER AWAITING ACTION SCH ×2 (22:28→23:53)
[2020-01-18] MEDS: KETOTIFEN~ORDER AWAITING ACTION SCH ×2 (22:28→23:53)
[2020-01-18] MEDS: SODIUM CHLORIDE 0.65% NA SOLN 45 ML (OCEAN) SCH (22:42)
[2020-01-18] MEDS: POTASSIUM CHLORIDE / WTR 10 MEQ/100 ML PLCT IV SCH ×2 (22:44→23:39)
[2020-01-19 01:24] LABS: Hematocrit (blood only) 39.7 % (42-52); Hemoglobin 13.3 g/dL (14.0-18.0); Mean Corpuscular Hemoglobin 29.6 pg (25-34); Mean Corpuscular Hgb Conc 33.5 g/dL (32-36); Mean Corpuscular Volume 88.4 fL (80-100); Mean Platelet Volume 11.5 fL (7.4-10.4); Platelet Count 251 K/uL (130-400); RDW Coefficient of Variation 13.2 % (11.5-14.5); RDW Standard Deviation 42.9 fL (36.4-46.3); Red Blood Count 4.49 M/uL (4.7-6.1); White Blood Count 6.29 K/uL (4.8-10.8)
[2020-01-19 02:26] LABS: Albumin Globulin Ratio 0.9 (0.9-2); Albumin Level 3.8 gm/dl (3.4-5.0); BUN Creatinine Ratio 6.4 (10-20); Bilirubin,Total 0.5 mg/dl (0.2-1); Calcium 8.6 mg/dl (8.5-10.1); Creatinine Clr Calc Pharmacy 89.6 ml/min; Est GFR (African American) 82.1; Est GFR (Non-African American) 70.9; Globulin 4.1 gm/dl (2.5-4.0); Magnesium 2.6 mg/dl (1.8-2.4); Potassium 5.2 mmol/L (3.5-5.1); Total Protein 7.9 gm/dl (6.4-8.2)
--- NOTE | 2020-01-19 08:35 | Electrocardiogram Report ---
Test Reason : Blood Pressure : / mmHG Vent. Rate : 075 BPM Atrial Rate : 075 BPM P-R Int : 158 ms QRS Dur : 116 ms QT Int : 408 ms P-R-T Axes : 029 031 017 degrees QTc Int : 455 ms Normal sinus rhythm Left atrial enlargement Left ventricular hypertrophy with QRS widening with repolarization abnormality Incomplete right bundle branch block Abnormal ECG When compared with ECG of 22-JUN-2019 10:53, Right bundle branch block is no longer complete Confirmed by Joseph Douglas ([id number]) on 01/19/2020 8:35:09 AM Referred By: Jennifer DELGADO Confirmed By:Joseph Douglas
--- NOTE | 2020-01-19 08:36 | Electrocardiogram Report ---
Test Reason : Blood Pressure : / mmHG Vent. Rate : 066 BPM Atrial Rate : 066 BPM P-R Int : 166 ms QRS Dur : 118 ms QT Int : 438 ms P-R-T Axes : 048 072 268 degrees QTc Int : 459 ms Normal sinus rhythm Left atrial enlargement Right bundle branch block Left ventricular hypertrophy with QRS widening and repolarization abnormality Abnormal ECG When compared with ECG of 18-JAN-2020 16:47, Right bundle branch block is now complete Otherwise no significant change Confirmed by Joseph Douglas ([id number]) on 01/19/2020 8:35:59 AM Referred By: Jennifer SCI Confirmed By:Joseph Douglas
[2020-01-19] MEDS ORDERED: PANTOprazole 40 MG TAB PO SCH (09:00)
[2020-01-19] MEDS ORDERED: IRBESARTAN 150 MG TAB PO SCH (09:00)
[2020-01-19] MEDS: SODIUM CHLORIDE 0.65% NA SOLN 45 ML (OCEAN) SCH ×2 (09:36→19:57)
[2020-01-19] MEDS: SODIUM CHLORIDE 0.9% 1000ML 1,000 ML IV SCH ×2 (09:37→19:58)
[2020-01-19] MEDS: CETIRIZINE HCL 10 MG TABLET PO SCH (09:39)
[2020-01-19] MEDS: METOCLOPRAMIDE HCL 10 MG TABLET PO SCH ×4 (09:39→19:58)
[2020-01-19] MEDS: ATORVASTATIN 40 MG TAB PO SCH (09:39)
[2020-01-19] MEDS: METOPROLOL TARTRATE 50 MG TAB PO SCH (09:48)
[2020-01-19] MEDS: KETOTIFEN~ORDER AWAITING ACTION SCH (09:54)
[2020-01-19] MEDS: EPLERENONE~ORDER AWAITING ACTION SCH ×3 (09:55→23:33)
--- NOTE | 2020-01-19 10:36 | Gastrointestinal Consultation ---
Date of Consultation January 19, 2020 Assessment & Plan (1) Dysphagia: -Keep NPO -EGD today -Continue Pantoprazole 40 mg daily--pending EGD results, may change this recommendation. (2) Unintentional weight loss: Supervising Physician Co-Signing Physician Notes Agree with ASH Almanza Abd: Soft, NT, ND, +BS Continue current therapy Proceed with EGD now History of Present Illness Reason for Consultation: Dysphagia Attending Physician: Christiano Gardner MD History of Present Illness Patient is a 49 yo incarcerated male who presents to [facility]. GI has been consulted due to ongoing dysphagia that has worsened over months. He reports solid food dysphagia. Denies issues with liquids. He notes that this has affected his po intake. He reports that he eats 1 meal per day due to the dysphagia. He reports a 20 lb weight loss in the course of several months. He reports he was taking Prilosec in [facility] but it was not helping his swallowing. He denies heartburn or reflux. He does report a family history of gastric cancer (father and uncle). Patient denies abdominal pain but reports constipation which has been treated with Lactulose. He denies melena or hematemesis. Denies hematochezia. He has a past medical history of CVA, Cardiomyopathy, amyloid heart muscle disease, hypertension, and tobacco/drug/alcohol abuse. A CT scan of the abdomen/pelvis and neck did not indicate any acute GI concerns. His H/H is 13.3/39.7. He denies NSAID use. Allergies Allergy/AdvReac Type Severity Reaction Status Date / Time fish derived Allergy Unknown Verified 01/17/20 02:27 shellfish derived Allergy Unknown Verified 01/18/20 16:47 Home Medications Home Medications Medication Instructions Recorded Confirmed Type Cetaphil 1 applic TOPICAL TID 06/19/19 01/18/20 History mirtazapine 45 mg PO HS 06/19/19 01/18/20 History aspirin [Ecotrin Low Strength] 81 mg PO QAM #30 tab 06/22/19 01/18/20 Rx atorvastatin 40 mg PO QAM #30 tab 06/22/19 01/18/20 Rx olopatadine 0.1 % eye drops 1 drops OP BID 11/28/19 01/18/20 History Lactobacillus acidophilus 0 mmu cells PO DAILY 01/18/20 01/18/20 History [Acidophilus] cetirizine [Zyrtec] 10 mg PO DAILY 01/18/20 01/18/20 History diphenhydramine HCl [Benadryl] 100 mg PO HS 01/18/20 01/18/20 History eplerenone 25 mg PO DAILY 01/18/20 01/18/20 History irbesartan 300 mg PO DAILY 01/18/20 01/18/20 History ketotifen fumarate 1 drp OPHTHALMIC (EYE) BID 01/18/20 01/18/20 History metoclopramide HCl [Reglan] 10 mg PO ACHS 01/18/20 01/18/20 History metoprolol tartrate 50 mg PO DAILY 01/18/20 01/18/20 History pantoprazole 40 mg PO DAILY 01/18/20 01/18/20 History sodium chloride [Plush Saline] 1 spray INTRANASAL BID 01/18/20 01/18/20 History sulfamethoxazole-trimethoprim 1 tab PO BID 01/18/20 01/18/20 History [Bactrim DS] Patient History Medical History Anxiety Eczema History of alcohol abuse History of drug abuse History of tobacco use HTN (hypertension) Surgical History Status post tendon repair history left finger tendon repair Family History Brother Coronary heart disease [place] in early 40's Stroke, Onset Age: 42 Father Stroke Stomach cancer Mother Stroke Uncle Stomach cancer Social History (Updated 01/18/20 @ 20:07 by Shanda Herrera PA-C) Smoking Status: Former smoker Tobacco Type: Cigarettes Second Hand Exposure: No; Do You Dip or Chew Tobacco: No; Tobacco Cessation Education Requested by Patient: No Hx Alcohol Use: No Hx Substance Use: Yes Substance Use Type Other:: Quit 2012 - Prior cocaine, acid, mushrooms, marijuana Preferred Language: Ukrainian Communication Ability: Effective Running Instructor Required: No Beliefs That Will Affect Care: None Current Living Situation: Other Current Living Situation Comment: [facility] Other Information That Helps Us Care for You: No Feels Safe at Home: Yes Safety Concerns: Feels Safe At This Time Review of Systems Constitutional: + weight loss; no fever and no chills Eyes: no problem reported Ear, Nose, Mouth, Throat: + dysphagia Respiratory: no cough and no dyspnea Cardiovascular: no chest pain Gastrointestinal: + dysphagia and + constipation; no abdominal pain, no heartburn and no coffee ground emesis Musculoskeletal: no problem reported Neurologic: no problem reported Psychiatric: no problem reported Physical Exam Constitutional: WD/WN, vitals as above Eyes: PERRL, conjunctivae normal, anicteric sclerae ENMT: external ear and nose normal, oropharynx normal Neck: normal visual inspection Respiratory: normal respiratory effort and + respiratory distress Cardiovascular: Rate/Rhythm: regular rate and regular rhythm Gastrointestinal (Abdomen): Inspection/Auscultation: abdomen normal to inspection Percussion/Palpation: abdomen soft; abdomen nontender Musculoskeletal: Head/Neck/Chest: normocephalic Skin: no rashes, warm and dry Psychiatric: A+Ox3, euthymic affect Results & Data ([facility]) Vital Signs (Past 12 Hours) Vital Signs Temp Pulse Pulse Resp BP Pulse Ox 01/19/20 07:23 36.6 C 79 16 119/80 95 01/19/20 04:20 36.6 C 16 134/79 95 01/18/20 23:06 36.8 C 76 18 148/86 H 97 01/18/20 22:56 82 PG Care Time/CCT Total # of Minutes Spent Total Time Spent with Patient: Total time spent is greater than 50% in coordination of care (as documented) at patient's floor/unit and/or counseling patient: Coding Level of Care Code 50573 Inpt Consult Level 4 Diagnoses Dysphagia R13.10 Dysphagia type: unspecified Unintentional weight loss R63.4 (1) Dysphagia Dysphagia type: unspecified Qualified Code(s): R13.10 - Dysphagia, unspecified
--- NOTE | 2020-01-19 11:59 | Anesthesiology Consultation ---
Date of Service January 19, 2020 Assessment & Plan Chart Review Chart Review: Acceptable Risk for Surgery and Patient NOT seen in Pre Admission Testing Consults Requested none ASA ASA4 Proposed Anesthesia Anesthesia Type: MAC History Surgery Operation Date: 01/19/20 08:30 Proposed Procedures p Esophagogastroduodenoscopy Dr Shoaib Whitfield Case, DO Height/Weight Height: 5 ft 11 in Weight: 96.8 kg Allergies Allergy/AdvReac Type Severity Reaction Status Date / Time fish derived Allergy Unknown Verified 01/17/20 02:27 shellfish derived Allergy Unknown Verified 01/18/20 16:47 Medications Home Medications Medication Instructions Recorded Confirmed Last Taken Cetaphil 1 applic TOPICAL TID 06/19/19 01/18/20 06/18/19 mirtazapine 45 mg PO HS 06/19/19 01/18/20 06/18/19 aspirin [Ecotrin Low Strength] 81 mg PO QAM #30 tab 06/22/19 01/18/20 Unknown atorvastatin 40 mg PO QAM #30 tab 06/22/19 01/18/20 Unknown olopatadine 0.1 % eye drops 1 drops OP BID 11/28/19 01/18/20 Unknown Lactobacillus acidophilus 0 mmu cells PO DAILY 01/18/20 01/18/20 Unknown [Acidophilus] cetirizine [Zyrtec] 10 mg PO DAILY 01/18/20 01/18/20 Unknown diphenhydramine HCl [Benadryl] 100 mg PO HS 01/18/20 01/18/20 Unknown eplerenone 25 mg PO DAILY 01/18/20 01/18/20 Unknown irbesartan 300 mg PO DAILY 01/18/20 01/18/20 Unknown ketotifen fumarate 1 drp OPHTHALMIC (EYE) BID 01/18/20 01/18/20 Unknown metoclopramide HCl [Reglan] 10 mg PO ACHS 01/18/20 01/18/20 Unknown metoprolol tartrate 50 mg PO DAILY 01/18/20 01/18/20 Unknown pantoprazole 40 mg PO DAILY 01/18/20 01/18/20 Unknown sodium chloride [[place] Saline] 1 spray INTRANASAL BID 01/18/20 01/18/20 Unknown sulfamethoxazole-trimethoprim 1 tab PO BID 01/18/20 01/18/20 Unknown [Bactrim DS] Active Medications Generic Name Dose Route Start Last Admin Trade Name Maganq PRN Reason Stop Dose Admin Atorvastatin Calcium 40 mg 01/19/20 09:00 01/19/20 09:39 Atorvastatin 40 Mg Tab PO 02/18/20 08:59 40 mg QAM DESIRE Administration Cetirizine HCl 10 mg 01/19/20 09:00 01/19/20 09:39 Cetirizine Hcl 10 Mg Tablet PO 02/18/20 08:59 10 mg DAILY DESIRE Administration Sodium Chloride 1,000 mls @ 80 mls/hr 01/19/20 08:30 01/19/20 09:37 Nss 1000ml IV 01/20/20 09:29 80 mls/hr .[id number] DESIRE Administration Irbesartan 300 mg 01/19/20 09:00 01/19/20 09:38 Irbesartan 150 Mg Tab PO 02/18/20 08:59 300 mg DAILY DESIRE Administration Metoclopramide HCl 10 mg 01/18/20 21:14 01/19/20 09:39 Metoclopramide Hcl 10 Mg Tablet PO 02/17/20 21:13 10 mg ACHS DESIRE Administration Metoprolol Tartrate 50 mg 01/19/20 09:00 01/19/20 09:48 Metoprolol Tartrate 50 Mg Tab PO 02/18/20 08:59 50 mg DAILY DESIRE Administration Mirtazapine 45 mg 01/18/20 21:14 01/18/20 21:47 Mirtazapine Soltab 15 Mg PO 02/17/20 21:13 45 mg HS DESIRE Administration Miscellaneous 1 ea 01/18/20 21:30 01/19/20 09:55 Eplerenone~Order Awaiting Action N/A 02/17/20 21:29 Not Given QS DESIRE Pantoprazole Sodium 40 mg 01/19/20 09:00 01/19/20 09:39 Pantoprazole 40 Mg Tab PO 02/18/20 08:59 40 mg DAILY DESIRE Administration Sodium Chloride 1 sprays 01/18/20 21:14 01/19/20 09:36 Sodium Chloride 0.65% Na Soln 45 Ml ([place]) NA 02/17/20 21:13 1 sprays BID DESIRE Administration Past Medical History Medical History Anxiety Eczema History of alcohol abuse History of drug abuse History of tobacco use HTN (hypertension) Exercise / Class Metabolic Activity III < 4 Walking/Shop/Light housework Past Family History Family History Brother Coronary heart disease [place] in early 40's Stroke, Onset Age: 42 Father Stroke Stomach cancer Mother Stroke Uncle Stomach cancer Past Surgical History Surgical History Status post tendon repair history left finger tendon repair Past Anesthesia History No Hx of Anesthesia Complications and No Family Hx of Anesthesia Complications History of PONV No Hx of PONV and No Hx of Motion Sickness Social History Smoking Status: Former smoker tobacco type: cigarettes Do You Dip or Chew Tobacco: No Hx Alcohol Use: No Hx Substance Use: Yes substance use type: former substance user Substance Use Type Other:: Quit 2011 - Prior cocaine, acid, mushrooms, marijuana Physical Exam Vital Signs Last Vital Signs Temp 36.6 C 01/19/20 11:52 Pulse 60 01/19/20 11:52 Resp 17 01/19/20 11:52 BP 105/69 01/19/20 11:52 Pulse Ox 95 01/19/20 11:52 Testing Laboratory Results 01/19/20 01:08 01/19/20 01:08 Electrocardiogram Date: 12/19/19 Findings: + NSR @ (at 68;LAE;RBBB;LVH) Echocardiogram Date: 12/06/19 LV Function: normal RWMA: + none Other Findings: + LVH (severe) and + diastolic dysfunction (grade 1) Valvular Disease: + no significant valvular disease and + MR (mild -moderate)
[2020-01-19] MEDS ORDERED: ATROPINE SULFATE 0.1 MG/ML 10ML SYR IV PRN (12:07)
[2020-01-19] MEDS ORDERED: ePHEDrine sulfate 50 MG/ML AMP IV PRN (12:07)
[2020-01-19] MEDS ORDERED: fentaNYL citrate 100 MCG/2 ML VIAL ONE (12:31)
--- NOTE | 2020-01-19 13:22 | GI REPORT ---
Patient Name: Jason Brice Procedure Date: 01/19/2020 12:40 PM Date of : 1970 Admit Type: Inpatient Age: 49 Gender: Male Attending MD: David Cramer DO Procedure: Upper GI endoscopy Providers: David Cramer DO Referring MD: Christiano Gardner Md Indications: Dysphagia Medicines: Monitored Anesthesia Care Complications: No immediate complications. Estimated Blood Loss: Estimated blood loss: none. Procedure: Pre-Anesthesia Assessment: - Prior to the procedure, a History and Physical was performed, and patient medications and allergies were reviewed. The patient's tolerance of previous anesthesia was also reviewed. The risks and benefits of the procedure and the sedation options and risks were discussed with the patient. All questions were answered, and informed consent was obtained. Prior Anticoagulants: The patient has taken aspirin, last dose was 1 day prior to procedure. ASA Grade Assessment: IV - A patient with severe systemic disease that is a constant threat to life. After reviewing the risks and benefits, the patient was deemed in satisfactory condition to undergo the procedure. After obtaining informed consent, the endoscope was passed under direct vision. Throughout the procedure, the patient's blood pressure, pulse, and oxygen saturations were monitored continuously. The Endoscope was introduced through the mouth, and advanced to the third part of duodenum. The upper GI endoscopy was accomplished without difficulty. The patient tolerated the procedure well. Findings: Mildly severe esophagitis with no bleeding was found 38 cm from the incisors. A guidewire was placed and the scope was withdrawn. Dilation was performed with a Savary dilator with mild resistance at 54 Fr. The dilation site was examined following endoscope reinsertion and showed mild improvement in luminal narrowing. A small hiatal hernia was present. Localized moderate inflammation characterized by erosions was found in the gastric antrum. Biopsies were taken with a cold forceps for histology. The examined duodenum was normal. Impression: - Mildly severe reflux esophagitis. Dilated. - Small hiatal hernia. - Gastritis. Biopsied. - Normal examined duodenum. Recommendation: - [facility]. - Resume previous diet. - Use Protonix (pantoprazole) 40 mg PO BID. - Await pathology results. David Cramer DO 01/19/2020 1:22:04 PM This report has been signed electronically. Note Initiated On: 01/19/2020 12:40 PM Number of Addenda: 0 I attest to the content of the Intraoperative Record and orders documented therein, exceptions below {[id number]}
[2020-01-19] MEDS ORDERED: PHENYLEPHRINE 100MCG/ML 5ML SYR ONE (13:23)
[2020-01-19] MEDS ORDERED: PROPOFOL IV EMULSION 10 MG/ML 20 ML VIAL IV ONE (13:23)
[2020-01-19] MEDS ORDERED: LIDOCAINE HCL 2% 2 ML VIAL/AMP(20MG/ML) INFIL ONE (13:23)
--- NOTE | 2020-01-19 13:24 | Anesthesiology Progress Note ---
Date of Service January 19, 2020 Anesthesia Post Procedure Vital Signs Vital Signs: Temp Pulse Pulse Pulse Resp BP BP 01/19/20 11:58 36.7 C 59 L 16 130/85 01/19/20 11:52 36.6 C 60 17 105/69 01/19/20 08:00 68 01/19/20 07:23 36.6 C 79 16 119/80 01/19/20 04:20 36.6 C 16 134/79 01/18/20 23:06 36.8 C 76 18 148/86 H 01/18/20 22:56 82 01/18/20 21:28 36.7 C 73 18 142/85 H 01/18/20 21:15 78 01/18/20 21:04 36.7 C 73 18 142/85 H 01/18/20 20:24 74 15 144/88 H 01/18/20 20:17 74 15 144/88 H 01/18/20 19:30 88 26 H 138/115 H 01/18/20 19:00 81 23 147/103 H 01/18/20 18:43 82 18 161/97 H 01/18/20 18:05 77 18 159/93 H 01/18/20 16:52 74 16 137/88 01/18/20 15:37 36.8 C 87 18 141/82 H Pulse Ox 01/19/20 11:58 96 01/19/20 11:52 95 01/19/20 08:00 01/19/20 07:23 95 01/19/20 04:20 95 01/18/20 23:06 97 01/18/20 22:56 01/18/20 21:28 99 01/18/20 21:15 01/18/20 21:04 99 01/18/20 20:24 99 01/18/20 20:17 99 01/18/20 19:30 97 01/18/20 19:00 98 01/18/20 18:43 100 01/18/20 18:05 100 01/18/20 16:52 97 01/18/20 15:37 96 Transfer of Care Handoff Completed per policy Notes Mental Status: alert / awake / arousable Patient Amnestic to Procedure: Yes Nausea / Vomiting: adequately controlled Pain: adequately controlled Airway Patency, RR, SpO2: stable & adequate BP & HR: stable & adequate Hydration State: stable & adequate Anesthetic Complications: no major complications apparent
[2020-01-19 16:51] LABS: BUN Creatinine Ratio 6.7 (10-20); Calcium 8.9 mg/dl (8.5-10.1); Creatinine Clr Calc Pharmacy 89.6 ml/min; Est GFR (African American) 82.1; Est GFR (Non-African American) 70.9; Potassium 5.3 mmol/L (3.5-5.1)
[2020-01-19] MEDS: ASPIRIN 81 MG ECTAB PO SCH (17:03)
--- NOTE | 2020-01-19 17:03 | Hospitalist Progress Note ---
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 Dysphagia Likely secondary to esophagitis, GERD, gastritis. --CT ABD: The bladder wall is thickened and trabeculated suggesting chronic outlet obstruction. Mild pericystic stranding is noted. Correlation with urinalysis is recommended. There is no bowel obstruction. --S/P EGD:Mildly severe reflux esophagitis. Dilated. Small hiatal hernia. Gastritis. Biopsied. Normal examined duodenum. --Family H/O Gastric Carcinoma --Pathology is pending --Received IV fluids --Appreciate GI input --Continue Protonix 40 mg twice daily --Advance diet as tolerated (2) Hypomagnesemia: (3) Hypokalemia: Likely due to poor oral intake Replete electrolytes as needed Monitor (4) Left arm weakness: H/O CVA Head CT:There is no hemorrhage, mass effect, or evidence of acute territorial ischemia by CT criteria. Neck CT:No acute abnormality is identified. 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 Zamora Needs follow up with Oncology as outpatient (7) HTN (hypertension): Continue Eplerenone, Irbesartan, metoprolol Monitor (8) History of CVA (cerebrovascular accident): Continue aspirin, statin DVT Px: SCDs for now Code status: Full Code Disposition: [facility] Admission and Anticipated Discharge Date Admission Date: January 18, 2020 Subjective Patient is seen and examined at bedside Reports dysphagia and abdominal pain Had EGD today Denies any blood in stool Also denies any chest pain, shortness of breath, dizziness, nausea Longterm guards at bedside. Review of Systems Review of Systems: All systems reviewed & are unremarkable except as noted in HPI & below Physical Exam Physical Exam: Physical Exam: Vitals signs as noted above General Appearance:Moderately built and nourished, no apparent distress Head: normocephalic, Atraumatic Eyes: normal inspection, EOMI Neck: supple, Trachea midline Respiratory/Chest: Normal breath sounds, CTA, No accessory muscle use Cardiovascular: S1, S2, No murmur Abdomen/GI:Soft, Mild tender, Mild distention. Bowel sounds present Extremities/Musculoskelatal:normal inspection, no edema Neurologic/Psych:AAOX3, grossly no focal neurological deficits Skin: normal color, warm, +Eczema--multiple sites Results & Data Results & Data ([facility]) Vital Signs (Past 12 Hours) Vital Signs Temp Pulse Pulse Resp BP Pulse Ox 01/19/20 16:09 36.8 C 58 L 16 121/84 100 01/19/20 15:20 55 L 16 119/78 01/19/20 14:50 62 16 118/78 96 01/19/20 14:35 36.3 C L 60 16 120/78 97 01/19/20 14:20 60 18 118/75 01/19/20 14:05 36.5 C 62 119/76 97 01/19/20 13:50 67 20 112/83 97 01/19/20 13:37 68 18 99/61 L 96 01/19/20 13:21 72 16 94/51 L 97 01/19/20 11:58 36.7 C 59 L 16 130/85 96 01/19/20 11:52 36.6 C 60 17 105/69 95 01/19/20 08:00 68 01/19/20 07:23 36.6 C 79 16 119/80 95 Laboratory Results Short CBC 01/19/20 Range/Units 01:08 WBC 6.29 (4.8-10.8) K/uL Hgb 13.3 L (14.0-18.0) g/dL Hct 39.7 L (42-52) % Plt Count 251 (130-400) K/uL BMP 01/18/20 01/18/20 01/19/20 16:32 18:01 01:08 Sodium 133 L 136 Potassium 2.1 L* 5.2 H D Chloride 102 107 Carbon Dioxide 23 25 BUN 10 8 Creatinine 1.38 1.21 Glucose 108 H 130 H Calcium 9.3 8.6 Cardiac Enzymes 01/18/20 Range/Units 16:32 Troponin I 0.050 H* (0-0.045) ng/ml Liver Function 01/18/20 01/18/20 01/19/20 Range/Units 16:32 18:01 01:08 Total Bilirubin 0.8 0.5 (0.2-1) mg/dl AST 10 L 20 (15-37) U/L ALT 31 27 (12-78) U/L Alkaline Phosphatase 83 68 (45-117) U/L Albumin 4.2 3.8 (3.4-5.0) gm/dl (1) Dysphagia Dysphagia type: unspecified Qualified Code(s): R13.10 - Dysphagia, unspecified (2) HTN (hypertension) Hypertension type: essential hypertension Qualified Code(s): I10 - Essential (primary) hypertension
[2020-01-19] MEDS ORDERED: CALCIUM GLUCONATE 10% 1,000 MG in SODIUM CHLORIDE 0.9% 50 ML IV ONE (18:30)
[2020-01-19] MEDS: PANTOprazole 40 MG TAB PO SCH (19:57)
[2020-01-19] MEDS: MIRTAZAPINE SOLTAB 15 MG PO SCH (19:58)
[2020-01-20 07:02] LABS: Hematocrit (blood only) 38.6 % (42-52); Hemoglobin 12.5 g/dL (14.0-18.0); Mean Corpuscular Hemoglobin 28.7 pg (25-34); Mean Corpuscular Hgb Conc 32.4 g/dL (32-36); Mean Corpuscular Volume 88.5 fL (80-100); Mean Platelet Volume 11.2 fL (7.4-10.4); Platelet Count 209 K/uL (130-400); RDW Coefficient of Variation 13.4 % (11.5-14.5); RDW Standard Deviation 43.5 fL (36.4-46.3); Red Blood Count 4.36 M/uL (4.7-6.1); White Blood Count 5.88 K/uL (4.8-10.8)
[2020-01-20 07:31] LABS: BUN Creatinine Ratio 7.5 (10-20); Calcium 8.7 mg/dl (8.5-10.1); Creatinine Clr Calc Pharmacy 94.2 ml/min; Est GFR (African American) 87.3; Est GFR (Non-African American) 75.4; Potassium 4.1 mmol/L (3.5-5.1)
[2020-01-20] MEDS: SODIUM CHLORIDE 0.65% NA SOLN 45 ML (OCEAN) SCH ×2 (08:51→21:29)
[2020-01-20] MEDS: PANTOprazole 40 MG TAB PO SCH ×2 (08:52→21:28)
[2020-01-20] MEDS: METOPROLOL TARTRATE 50 MG TAB PO SCH (08:52)
[2020-01-20] MEDS: METOCLOPRAMIDE HCL 10 MG TABLET PO SCH ×4 (08:52→21:27)
[2020-01-20] MEDS: EPLERENONE~ORDER AWAITING ACTION SCH ×3 (08:53→23:20)
[2020-01-20] MEDS: ASPIRIN 81 MG ECTAB PO SCH (08:53)
[2020-01-20] MEDS: CETIRIZINE HCL 10 MG TABLET PO SCH (08:53)
[2020-01-20] MEDS: ATORVASTATIN 40 MG TAB PO SCH (08:53)
[2020-01-20] MEDS: EUCERIN CR 120 GM JAR EXT SCH ×2 (12:28→21:30)
--- NOTE | 2020-01-20 18:40 | Hospitalist Progress Note ---
Date of Service January 20, 2020 Assessment & Plan (1) Dysphagia: Patient is a 49 yr male with H/O HTN, CVA, Possible amyloid heart muscle disease, anxiety, H/O Drug and alcohol use presents with H/O Increased difficulty swallowing solids for the past few months associated early satiety, weight loss. Dysphagia Likely secondary to esophagitis, GERD, gastritis. --CT ABD: The bladder wall is thickened and trabeculated suggesting chronic outlet obstruction. Mild pericystic stranding is noted. Correlation with urinalysis is recommended. There is no bowel obstruction. --S/P EGD:Mildly severe reflux esophagitis. Dilated. Small hiatal hernia. Gastritis. Biopsied. Normal examined duodenum. --Family H/O Gastric Carcinoma --Pathology is pending --Received IV fluids --Appreciate GI input --Continue Protonix 40 mg twice daily --Advance diet as tolerated --Continue liquid diet today --No BM today (2) Hypomagnesemia: (3) Hypokalemia: Likely due to poor oral intake Replete electrolytes as needed Monitor (4) Left arm weakness: H/O CVA Head CT:There is no hemorrhage, mass effect, or evidence of acute territorial ischemia by CT criteria. Neck CT:No acute abnormality is identified. 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 Zamora Needs follow up with Oncology as outpatient (7) HTN (hypertension): Continue Eplerenone, Irbesartan, metoprolol Monitor (8) History of CVA (cerebrovascular accident): Continue aspirin, statin DVT Px: SCDs for now Code status: Full Code Disposition: [facility] Admission and Anticipated Discharge Date Admission Date: January 18, 2020 Subjective Patient is seen and examined at bedside Reports "Food sticking" + Flatus, No BM Also reports mild abdominal pain, distention Denies any chest pain, shortness of breath, dizziness, nausea [facility] guards at bedside. Regurgitated liquid diet partly per patient Review of Systems Review of Systems: All systems reviewed & are unremarkable except as noted in HPI & below Physical Exam Physical Exam: Physical Exam: Vitals signs as noted above General Appearance:Moderately built and nourished, no apparent distress Head: normocephalic, Atraumatic Eyes: normal inspection, EOMI Neck: supple, Trachea midline Respiratory/Chest: Normal breath sounds, CTA, No accessory muscle use Cardiovascular: S1, S2, No murmur Abdomen/GI:Soft, Mild tender, Mild distention. Bowel sounds present Extremities/Musculoskelatal:normal inspection, no edema Neurologic/Psych:AAOX3, grossly no focal neurological deficits Skin: normal color, warm, +Eczema--multiple sites Results & Data Results & Data ([facility]) Vital Signs (Past 12 Hours) Vital Signs Temp Pulse Pulse Resp BP Pulse Ox 01/20/20 16:10 60 01/20/20 15:04 36.4 C L 62 20 119/81 100 01/20/20 11:59 36.7 C 64 18 121/74 98 01/20/20 11:12 65 01/20/20 08:13 36.5 C 50 L 16 132/72 98 Laboratory Results Short CBC 01/20/20 Range/Units 06:42 WBC 5.88 (4.8-10.8) K/uL Hgb 12.5 L (14.0-18.0) g/dL Hct 38.6 L (42-52) % Plt Count 209 (130-400) K/uL BMP 01/20/20 06:42 Sodium 138 Potassium 4.1 D Chloride 107 Carbon Dioxide 25 BUN 9 Creatinine 1.15 Glucose 96 Calcium 8.7 (1) Dysphagia Dysphagia type: unspecified Qualified Code(s): R13.10 - Dysphagia, unspecified (2) HTN (hypertension) Hypertension type: essential hypertension Qualified Code(s): I10 - Essential (primary) hypertension
[2020-01-20] MEDS: MIRTAZAPINE SOLTAB 15 MG PO SCH (21:28)
[2020-01-21 06:51] LABS: Calcium 8.9 mg/dl (8.5-10.1); Creatinine Clr Calc Pharmacy 105.8 ml/min; Est GFR (African American) 90.2; Est GFR (Non-African American) 77.8; Magnesium 1.9 mg/dl (1.8-2.4); Potassium 3.9 mmol/L (3.5-5.1)
[2020-01-21] MEDS: METOPROLOL TARTRATE 50 MG TAB PO SCH (08:38)
[2020-01-21] MEDS: EUCERIN CR 120 GM JAR EXT SCH (08:38)
[2020-01-21] MEDS: CETIRIZINE HCL 10 MG TABLET PO SCH (08:38)
[2020-01-21] MEDS: ASPIRIN 81 MG ECTAB PO SCH (08:38)
[2020-01-21] MEDS: PANTOprazole 40 MG TAB PO SCH (08:38)
[2020-01-21] MEDS: METOCLOPRAMIDE HCL 10 MG TABLET PO SCH ×3 (08:38→15:41)
[2020-01-21] MEDS: SODIUM CHLORIDE 0.65% NA SOLN 45 ML (OCEAN) SCH (08:38)
[2020-01-21] MEDS: EPLERENONE~ORDER AWAITING ACTION SCH ×2 (08:39→15:41)
[2020-01-21] MEDS: ATORVASTATIN 40 MG TAB PO SCH (10:59)
[2020-01-21] MEDS ORDERED: POLYETHYLENE (MIRALAX) 17 GM PACK PO PRN (11:33)
[2020-01-21] MEDS ORDERED: POLYETHYLENE (MIRALAX) 17 GM PACK PO ONE (11:34)
[2020-01-21] MEDS ORDERED: DOCUSATE SODIUM 100 MG CAP PO SCH (11:45)
--- NOTE | 2020-01-21 14:41 | Hospitalist Progress Note ---
Date of Service January 21, 2020 Assessment & Plan (1) Dysphagia: Patient is a 49 yr male with H/O HTN, CVA, Possible amyloid heart muscle disease, anxiety, H/O Drug and alcohol use presents with H/O Increased difficulty swallowing solids for the past few months associated early satiety, weight loss. Dysphagia Likely secondary to esophagitis, GERD, gastritis. --CT ABD: The bladder wall is thickened and trabeculated suggesting chronic outlet obstruction. Mild pericystic stranding is noted. Correlation with urinalysis is recommended. There is no bowel obstruction. --S/P EGD:Mildly severe reflux esophagitis. Dilated. Small hiatal hernia. Gastritis. Biopsied. Normal examined duodenum. --Family H/O Gastric Carcinoma --Pathology is pending --Received IV fluids --Appreciate GI input --Continue Protonix 40 mg twice daily --Tolerated regular diet --Continue bowel regimen for constipation (2) Hypomagnesemia: (3) Hypokalemia: Likely due to poor oral intake Replete electrolytes as needed Monitor (4) Left arm weakness: H/O CVA Head CT:There is no hemorrhage, mass effect, or evidence of acute territorial ischemia by CT criteria. Neck CT:No acute abnormality is identified. 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 Zamora Needs follow up with Oncology as outpatient (7) HTN (hypertension): Continue Eplerenone, Irbesartan, metoprolol Monitor (8) History of CVA (cerebrovascular accident): Continue aspirin, statin DVT Px: SCDs for now Code status: Full Code Disposition: [facility] Admission and Anticipated Discharge Date Admission Date: January 18, 2020 Subjective Patient is seen and examined at bedside Dysphagia improved +Flatus, no BM Tolerated regular diet No new complaints Abdominal pain, distention improved Denies any chest pain, shortness of breath, dizziness, nausea, vomiting Review of Systems Review of Systems: All systems reviewed & are unremarkable except as noted in HPI & below Physical Exam Physical Exam: Physical Exam: Vitals signs as noted above General Appearance:Moderately built and nourished, no apparent distress Head: normocephalic, Atraumatic Eyes: normal inspection, EOMI Neck: supple, Trachea midline Respiratory/Chest: Normal breath sounds, CTA, No accessory muscle use Cardiovascular: S1, S2, No murmur Abdomen/GI:Soft, non tender. Bowel sounds present Extremities/Musculoskelatal:normal inspection, no edema Neurologic/Psych:AAOX3, grossly no focal neurological deficits Skin: normal color, warm, +Eczema--multiple sites Results & Data Results & Data ([facility]) Vital Signs (Past 12 Hours) Vital Signs Temp Pulse Pulse Resp BP Pulse Ox 01/21/20 11:03 37.0 C 70 18 131/83 99 01/21/20 08:00 71 01/21/20 07:43 37.2 C 75 18 146/89 H 98 01/21/20 04:00 36.9 C 60 19 121/85 100 Laboratory Results [facility] 01/21/20 05:49 Sodium 140 Potassium 3.9 Chloride 107 Carbon Dioxide 25 BUN 9 Creatinine 1.12 Glucose 91 Calcium 8.9 (1) Dysphagia Dysphagia type: unspecified Qualified Code(s): R13.10 - Dysphagia, unspecified (2) HTN (hypertension) Hypertension type: essential hypertension Qualified Code(s): I10 - Essential (primary) hypertension
--- NOTE | 2020-01-21 14:47 | Discharge Summary ---
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 Initially presented to ED last night and was discharged home with GI follow up in clinic but symptoms have worsened. After eating, patient feels that his neck swells and food gets stuck. As difficulty swallowing has gotten worse, patient has been dissolving pills in liquids so they don't get stuck in throat. Has been regurgitating foods and tolerates one meal per day, endorsing early satiety. Denies issues swallowing liquids. Was taking Bactrim for "bacteria in stomach" but stopped taking 2 days ago. Denies hematemesis, hemoptysis, melena or hematochezia. Approximate 20 pound weight loss in one month as well as constipation. Also endorsed left arm weakness this morning that has since resolved. No other neurological symptoms. Denies fever, chills, lightheadedness, syncope, chest pain, palpitations, SOB, dysuria or diarrhea. History of alcohol and tobacco use. Denies previous EGD/colonoscopy. History of stomach cancer in both father and uncle. Admission Exam Per Admitting Provider VS noted and reviewed oriented x 3, not in distress, speaks in sentences with no effort nor accessory muscle use head and neck: no masses, lymphadenopathy normal rate, regular rhythm, no murmurs clear breath sounds bilaterally non distended, soft, nontender no bipedal edema, erythema, warmth no neuro deficits Principal Diagnosis Dysphagia secondary to esophagitis, GERD, gastritis Hypokalemia Hypomagnesemia Constipation Discharge Data Allergies Allergy/AdvReac Type Severity Reaction Status Date / Time fish derived Allergy Unknown Verified 01/17/20 02:27 shellfish derived Allergy Unknown Verified 01/18/20 16:47 Consultations 01/18/20 19:27 ED Decision to Admit Stat 01/18/20 21:14 Consult Case Management - Discharge Planning Routine Consult Gastroenterology Routine Procedures Performed Operation Date: 01/19/20 08:30 Actual Procedures p EGD Biopsy Dilatation - David G. Case, DO Ordered Studies 01/18/20 16:07 CT abd pelvis IV con only Stat CT soft tissue neck w con Stat 01/18/20 20:19 CT head/brain wo con Stat --CT ABD: The bladder wall is thickened and trabeculated suggesting chronic outlet obstruction. Mild pericystic stranding is noted. Correlation with urinalysis is recommended. There is no bowel obstruction. --S/P EGD:Mildly severe reflux esophagitis. Dilated. Small hiatal hernia. Gastritis. Biopsied. Normal examined duodenum. Head CT:There is no hemorrhage, mass effect, or evidence of acute territorial ischemia by CT criteria. Neck CT:No acute abnormality is identified. 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 Dysphagia Likely secondary to esophagitis, GERD, gastritis. --CT ABD: The bladder wall is thickened and trabeculated suggesting chronic outlet obstruction. Mild pericystic stranding is noted. Correlation with urinalysis is recommended. There is no bowel obstruction. --S/P EGD:Mildly severe reflux esophagitis. Dilated. Small hiatal hernia. Gastritis. Biopsied. Normal examined duodenum. --Family H/O Gastric Carcinoma --Pathology is pending --Received IV fluids --Appreciate GI input --Continue Protonix 40 mg twice daily --Tolerated regular diet --Continue bowel regimen for constipation (2) Hypomagnesemia: (3) Hypokalemia: Likely due to poor oral intake Replete electrolytes as needed Monitor (4) Left arm weakness: H/O CVA Head CT:There is no hemorrhage, mass effect, or evidence of acute territorial ischemia by CT criteria. Neck CT:No acute abnormality is identified. 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 Zamora Needs follow up with Oncology as outpatient (7) HTN (hypertension): Continue Eplerenone, Irbesartan, metoprolol Monitor (8) History of CVA (cerebrovascular accident): Continue aspirin, statin DVT Px: SCDs for now Code status: Full Code Disposition: [facility] Total Time Total Time Spent Total Time Spent (In Minutes): 39 minutes Total Time Includes: Examination of the Patient, Discharge Planning, Medication Reconciliation, Communication With Other Providers and Other Discharge Plan Discharge Items [facility] Disposition[facility] Reason For Visit: INTRACTABLE VOMITING, ELECTROLYTE ABNORMALITIES Discharge Diagnosis: Dysphagia secondary to esophagitis, GERD, gastritis Hypokalemia Hypomagnesemia Constipation Activity: Resume your previous activity Exercise/Sports: Gradually increase as tolerated Non-emergency contact: Primary Care Provider and [employer] Sc[employer] Operator Call non-emergency contact if: you have any medication questions, your symptoms worsen, your pain is not controlled, your pain is worsening, your pain is unusual for you and you have a fever Follow-up/Referrals: Jennifer DELGADO [Primary Care Provider] - Diet: Heart Healthy and Low Fiber Addtl Attending Provider Instructions: Follow-up with your physician at [facility] Jennifer in 1 week Follow-up with your heart specialist in 2 to 4 weeks. Your biopsy(pathology) results are pending at the time of discharge. Follow-up with your physician for results. Seek immediate medical attention if your symptoms reoccur or worsen Pending Studies at Discharge: Yes Stand-Alone Forms: My [facility] Skilled Items Patient informed of condition?: Yes Discharge Level of Care: Other Communicable Disease: No Discharge Prognosis: Improving Lines: None Urinary Catheter: No Medications and DC Order Prescriptions: New docusate sodium 100 mg Capsule 100 mg PO BID PRN (Reason: Constipation) Qty: 60 RF: 0 polyethylene glycol 3350 [Miralax] 17 gram Powder In Packet 17 g PO DAILY PRN (Reason: constipation) Qty: 30 RF: 0 pantoprazole 40 mg Tablet,Delayed Release (Dr/Ec) 40 mg PO BID Qty: 60 RF: 0 Continued olopatadine 0.1 % drops 1 drops OP BID RF: 0 mirtazapine 45 mg Tablet 45 mg PO HS RF: 0 Cetaphil Cream 1 applic TOPICAL TID RF: 0 atorvastatin 40 mg Tablet 40 mg PO QAM Qty: 30 RF: 2 aspirin [Ecotrin Low Strength] 81 mg Tablet,Delayed Release (Dr/Ec) 81 mg PO QAM Qty: 30 RF: 2 diphenhydramine HCl 50 mg Capsule 100 mg PO HS RF: 0 cetirizine [Zyrtec] 10 mg Tablet 10 mg PO DAILY RF: 0 ketotifen fumarate 0.025 % (0.035 %) Drops 1 drp OPHTHALMIC (EYE) BID RF: 0 sulfamethoxazole-trimethoprim [Bactrim DS] 800-160 mg Tablet 1 tab PO BID RF: 0 Lactobacillus acidophilus Tablet 0 mmu cells PO DAILY RF: 0 metoprolol tartrate 50 mg Tablet 50 mg PO DAILY RF: 0 irbesartan 300 mg Tablet 300 mg PO DAILY RF: 0 metoclopramide HCl [Reglan] 10 mg Tablet 10 mg PO ACHS RF: 0 eplerenone 25 mg Tablet 25 mg PO DAILY RF: 0 sodium chloride [Hobgood Saline] 0.65 % Aerosol,Dawn 1 spray INTRANASAL BID RF: 0 Discontinued pantoprazole 40 mg Tablet,Delayed Release (Dr/Ec) 40 mg PO DAILY RF: 0 Discharge Orders: Discharge Order (Routine); Ordered 01/21/20 Ordered By: Christiano Hoffman/Other Patient Handouts: Upper GI Endoscopy, What Is GERD?, GERD Lifestyle Changes Admission Data Admit Date/Time: 01/18/20 19:47 Attending Provider: Christiano Gardner Admit Provider: Zander Christianson Primary Care Provider: Jennifer DELGADO Other Providers: Heri Ruiz ; David Cramer Other Interventions: Discharge Summary Assessment (RN) Last Done: 01/21/20 15:33
== END 2020-01-21 16:19 | DRG 392 ==
LOC: ED 15:35 → SUATTDRO 19:47 → 2S 19:47 → INTOOBSV 19:47 → 2S 20:24
DX: Z80.0 Family history of malignant neoplasm of digestive organs; Z86.73 Personal history of transient ischemic attack (TIA), and cerebral infarction without residual deficits; E83.42 Hypomagnesemia; K29.70 Gastritis, unspecified, without bleeding; Z91.013 Allergy to seafood; Z79.82 Long term (current) use of aspirin; Z82.3 Family history of stroke; I43 Cardiomyopathy in diseases classified elsewhere; Z79.899 Other long term (current) drug therapy; K44.9 Diaphragmatic hernia without obstruction or gangrene; E85.4 Organ-limited amyloidosis; R20.0 Anesthesia of skin; Z87.898 Personal history of other specified conditions; K21.0 Gastro-esophageal reflux disease with esophagitis; R79.89 Other specified abnormal findings of blood chemistry; R63.4 Abnormal weight loss; K59.00 Constipation, unspecified; E87.6 Hypokalemia; I10 Essential (primary) hypertension; Z87.891 Personal history of nicotine dependence; F41.9 Anxiety disorder, unspecified; Z82.49 Family history of ischemic heart disease and other diseases of the circulatory system

== ENCOUNTER 2021-09-12 12:46 | Inpatient (IN) ==
--- NOTE | 2021-09-12 13:03 | CT Scan Report ---
CT head/brain wo con CLINICAL HISTORY: 51 years-old Male with Stroke Like Symptoms. Acute strokelike symptoms TECHNIQUE: Multiple axial CT images of the head were obtained without contrast. A dose lowering tech nique was utilized adhering to the principles of ALARA. COMPARISON: Head CT 01/18/2020 FINDINGS: Study is mildly motion degraded. No acute intracranial hemorrhage, midline shift, intracranial mass, hydrocephalus, territorial ischemia or abnormal extra-axial collection. The calvarium is intact. The paranasal sinuses, mastoid air cells, and middle ear cavities are clear . IMPRESSION: No acute intracranial abnormality. ACT 112: Negative or not required by law. The above report was generated using voice recognition software. It may contain grammatical, syntax o r spelling errors. Electronically signed by: Abe Tatum M.D. 09/12/2021 1:01 PM
[2021-09-12] MEDS ORDERED: OPTIRAY 320 125ml IV ONE (13:17)
--- NOTE | 2021-09-12 13:17 | Emergency Department Note ---
Impression & Plan Acute ischemic stroke, Atrial fibrillation, new onset ED Provider Note NAME: MABEL [id number] ZAHRA AGE: 51 SEX: M : 1970 ARRIVES VIA: Ambulance INFORMANT: Patient, EMS personnel, the [facility] ED PROVIDER(S): Dimas Naik DO CHIEF COMPLAINT: Strokelike symptoms HPI: The patient is a 51-year-old male who presented to the emergency department from the [facility] for an evaluation of strokelike symptoms. The patient was at his normal baseline mental status and neurologic exam when rounds were done at 1115 this morning. When he was next checked on around noon today he was found to be unable to speak unable to walk. The patient does not take blood thinners. I did receive a prehospital phone call about this patient and the patient was found to be in A. fib by the prehospital personnel prior to arrival. The patient himself offers no complaints. He has some degree of aphasia as well as facial droop. He is having trouble moving his right arm and right leg. The prehospital personnel also obtained history stating that the patient was having trouble ambulating over the course the last month and is scheduled to have an MRI to do determine the cause of this. ROS: See above HPI for pertinent positives & negatives. A total of 10 systems reviewed and were otherwise negative. PAST MEDICAL HISTORY: See Below PAST SURGICAL HISTORY: See Below FAMILY HISTORY: See Below SOCIAL HISTORY: See Below HOME MEDICATIONS: See Below ALLERGIES: See Below VITALS: See Below PHYSICAL EXAMINATION: GENERAL: The patient is awake and alert. The patient is somewhat anxious appearing. EYES: The conjunctivae are clear. The pupils are round and reactive. EARS, NOSE, MOUTH AND THROAT: The nose is without any evidence of any deformity. NECK: The neck is nontender and supple. RESPIRATORY: Normal respiratory effort is noted there is no evidence of wheezing rhonchi or rales CARDIOVASCULAR: Irregular heart sounds are noted auscultation. There is no definite murmur. GASTROINTESTINAL: The abdomen is soft. Abdomen is nontender. MUSCULOSKELETAL/EXTREMITIES: There is no evidence of gross deformity full range of motion is noted in the hips and shoulders. SKIN: Skin is warm and dry. Trace pedal edema was noted bilaterally. NEUROLOGIC: Patient is awake and follows commands. His speech is pressured. The patient is having significant word finding difficulty and I am unable to assess orientation at this time. National Sales Manager strength was asymmetric and the patient has diminished correctional security officer strength in the right hand. The patient is unable to lift the right leg off the bed. He is able to lift the left leg off the bed without difficulty. MEDICAL DECISION MAKING: The patient is a 51-year-old male who presented to the emergency department by ambulance for strokelike symptoms. The [facility] resides in the [facility]. He does have a history of CVA in the past. The patient was found to be in atrial fibrillation by the prehospital personnel. He was found to be in his cell with strokelike symptoms at approximately noon today. His last known well time was 11:15 in the morning. The patient had some degree of aphasia prior to arrival. The patient also had right-sided weakness. His initial CAT scan was read as no acute disease and the patient was felt to be a good candidate for TNKase given his elevated INH and his time of presentation. The patient had s ome delay in thrombolytic administration because he needed blood pressure control using IV antihypertensive but also there was some difficulty obtaining proper IV access in the patient. The patient was consented verbally for TN K. The patient was evaluated by the [place] telestroke neurologist. [facility]. After administration of TNKase the patient did have an episode where his symptoms started to worsen. Repeat CT was ordered. The patient was reevaluated multiple times. Triage Nursing notes reviewed. Prior medical records reviewed Vital Signs: reviewed and remarkable for no significant abnormalities Differential diagnosis: Infection, dehydration, metabolic abnormality, hypo/hyperglycemia, electrolyte disturbance, anemia, hypoxia, cardiac sources, intracerebral event, toxicologic, neurologic, as well as other pathologies. ER treatment provided: See below Diagnostics interpreted by me: ECG: EKG was obtained in the emergency department. My interpretation is atrial fibrillation at 92 bpm. PVCs were noted. Nonspecific ST segment depressions were noted. This was compared to a tracing from January 19, 2020. Atrial fibrillation has replaced sinus rhythm. Cardiac Monitoring: An order was placed for continuous cardiac monitoring. The monitor shows a rate of 97 bpm with atrial fibrillation. Laboratory studies: As stated above and show below. Imaging studies: See below Consultation(s): I discussed this case with the [facility] telestroke neurologist. I discussed this case with Dr. Payton who is on-call for the [place] hospitalist group. Discussion occurred with patient/family: We discussed the risks of IV thrombolytic therapy including a 5-7% risk of possible significant hemorrhage which can be fatal as well as about a 1% risk of angioedema. We also noted that IV thrombolytic therapy provides about a 30-40% probability of improved functional status and lower disability at 90 days than if not treated with thrombolytic. After discussion regarding risks and benefits as well as the inclusion and exclusion criteria, the patient then consented to receive IV thrombolytic therapy. ED COURSE: Procedures: none Critical Care: I have personally spent greater than 55 minutes of critical care time in the direct management of this patient. This includes bedside care, interpretation of diagnostic studies, and testing, discussion with consultants, patient, and family members, and other required patient management activities. This 55 minutes is in excess of all separately billable procedures. Past Med/Surg History Medical History (Updated 09/12/21 @ 15:46 by Melecio Grajeda MD) Anxiety Chest pain Eczema History of alcohol abuse History of drug abuse History of tobacco use HTN (hypertension) Surgical History Status post tendon repair history left finger tendon repair Family History Brother Coronary heart disease [place] in early 40's Stroke, Onset Age: 42 Father Stroke Stomach cancer Mother Stroke Uncle Stomach cancer Social History Smoking Status: Former smoker Tobacco Type: Cigarettes Second Hand Exposure: Yes; Hx Alcohol Use: No Hx Substance Use: Yes Last Used Substance Other:: acid and mushrooms Substance Use Type Other:: Quit 2012 - Prior cocaine, acid, mushrooms, marijuana Preferred Language: Portuguese Communication Ability: Effective Spin Table Operator Required: No Beliefs That Will Affect Care: None Current Living Situation: Other Current Living Situation Comment: [facility] Feels Safe at Home: Yes Assistive Devices: Denture - Upper and Glasses Allergies Allergies Allergy/AdvReac Type Severity Reaction Status Date / Time fish derived Allergy Unknown Verified 09/12/21 13:53 shellfish derived Allergy Unknown Verified 09/12/21 13:53 Home Meds Home Medications Medication Instructions Recorded Confirmed eplerenone 25 mg tablet 25 mg PO DAILY 01/18/20 09/12/21 hydrochlorothiazide 25 mg tablet 25 mg PO DAILY 05/27/21 09/12/21 lactulose 10 gram/15 mL oral 15 ml PO BID ml 05/27/21 09/12/21 solution metoprolol tartrate 100 mg tablet 100 mg PO BID tab 05/27/21 09/12/21 glipizide 5 mg tablet 5 mg PO BID 09/12/21 09/12/21 losartan 50 mg tablet 50 mg PO DAILY 09/12/21 09/12/21 olopatadine 0.1 % eye drops 1 drp OPB BID 09/12/21 09/12/21 Previous Rx's Medication Instructions Recorded aspirin 81 mg tablet,delayed 81 mg PO QAM #30 tab 06/22/19 release (Ecotrin Low Strength) atorvastatin 40 mg tablet 40 mg PO QAM #30 tab 06/22/19 Results & Data (ED) Vital Signs Vital Signs - 24 hr 09/12/21 13:00 09/12/21 13:15 09/12/21 13:16 Temperature 36.7 C Temperature Source Oral Pulse Rate 109 H Pulse Rate [Apical] 109 H Pulse Rate from SpO2 Sensor 89 Respiratory Rate 20 Respiratory Effort / Characteristics Non-Labored Spontaneous Respiratory Depth Normal Respiratory Pattern Regular Blood Pressure 142/107 H 142/107 H Blood Pressure [Right Arm] 142/107 H Blood Pressure Mean 118 118 Blood Pressure Mean [Right Arm] 118 Pulse Oximetry 95 100 Oxygen Delivery Method Room Air Sepsis Recent Fever Within 48 Hours No Sepsis New/Unexplained Change in Mental Status No Sepsis Action Taken by Nursing No Action Required 09/12/21 13:30 09/12/21 13:34 09/12/21 13:44 Temperature Temperature Source Pulse Rate 108 H 106 H 112 H Pulse Rate [Apical] Pulse Rate from SpO2 Sensor 102 H Respiratory Rate 16 18 17 Respiratory Effort / Characteristics Respiratory Depth Respiratory Pattern Blood Pressure 161/113 H 132/93 Blood Pressure [Right Arm] Blood Pressure Mean 129 106 Blood Pressure Mean [Right Arm] Pulse Oximetry 99 Oxygen Delivery Method Sepsis Recent Fever Within 48 Hours Sepsis New/Unexplained Change in Mental Status Sepsis Action Taken by Nursing 09/12/21 13:45 09/12/21 14:00 09/12/21 14:22 Temperature Temperature Source Pulse Rate 98 H 104 H 90 Pulse Rate [Apical] 97 H Pulse Rate from SpO2 Sensor 83 94 H Respiratory Rate 15 14 18 Respiratory Effort / Characteristics Non-Labored Spontaneous Respiratory Depth Normal Respiratory Pattern Regular Blood Pressure 139/92 134/97 125/97 Blood Pressure [Right Arm] 134/97 Blood Pressure Mean 107 109 106 Blood Pressure Mean [Right Arm] 109 Pulse Oximetry 99 98 Oxygen Delivery Method Room Air Sepsis Recent Fever Within 48 Hours Sepsis New/Unexplained Change in Mental Status Sepsis Action Taken by Nursing 09/12/21 14:30 09/12/21 14:45 Temperature Temperature Source Pulse Rate 111 H 101 H Pulse Rate [Apical] 100 H 99 H Pulse Rate from SpO2 Sensor 94 H 93 H Respiratory Rate 12 15 Respiratory Effort / Characteristics Non-Labored Spontaneous Non-Labored Spontaneous Respiratory Depth Normal Normal Respiratory Pattern Regular Regular Blood Pressure 137/105 H 141/96 H Blood Pressure [Right Arm] 137/105 H 141/96 H Blood Pressure Mean 115 111 Blood Pressure Mean [Right Arm] 115 111 Pulse Oximetry 97 95 Oxygen Delivery Method Room Air Room Air Sepsis Recent Fever Within 48 Hours Sepsis New/Unexplained Change in Mental Status Sepsis Action Taken by [facility] Medications Current Medication List: was personally reviewed by me Laboratory Data Attestation: I reviewed the patient's lab results. Result diagrams: 09/12/21 13:43 09/12/21 13:43 Lab Results 09/12/21 09/12/21 09/12/21 Range/Units 13:21 13:24 13:43 WBC 6.74 (4.8-10.8) K/uL RBC 4.65 L (4.7-6.1) M/uL Hgb 13.5 L (14.0-18.0) g/dL Hct 40.2 L (42-52) % MCV 86.5 (80-100) fL MCH 29.0 (25-34) pg MCHC 33.6 (32-36) g/dL RDW Std Deviation 45.5 (36.4-46.3) fL RDW Coeff of Georgette 14.6 H (11.5-14.5) % Plt Count 185 (130-400) K/uL MPV 12.1 H (7.4-10.4) fL Immature Gran % (Auto) 0.4 % Neut % (Auto) 39.9 % Lymph % (Auto) 44.4 % [place] % (Auto) 13.5 % Eos % (Auto) 1.5 % Baso % (Auto) 0.3 % Neut # (Auto) 2.69 (1.4-6.5) K/uL Lymph # (Auto) 2.99 (1.2-3.4) K/uL [place] # (Auto) 0.91 H (0.11-0.59) K/uL Eos # (Auto) 0.10 (0-0.5) K/uL Baso # (Auto) 0.02 (0-0.2) K/uL Immature Gran # (Auto) 0.03 H (0.00-0.02) K/uL PT (9.0-12.0) Seconds INR (0.9-1.1) APTT (21.0-31.0) Seconds PTT Ratio Sodium (136-145) mmol/L Potassium (3.5-5.1) mmol/L Chloride (98-107) mmol/L Carbon Dioxide (21-32) mmol/L Anion Gap (3-11) BUN (6-23) mg/dl Creatinine (0.6-1.4) mg/dl Est Cr Clr Drug Dosing ml/min Est GFR ( Amer) ml/min Est GFR (Non-Af Amer) ml/min BUN/Creatinine Ratio (10-20) Glucose (70-99(Fasting)) mg/dl POC Glucose 100 H (70-99) mg/dl Calcium (8.5-10.1) mg/dl Magnesium (1.7-2.4) mg/dl Total Bilirubin (0.2-1.0) mg/dl AST (13-39) U/L ALT (7-52) U/L Alkaline Phosphatase (34-104) U/L Troponin I High Sens (0-20) pg/ml Total Protein (6.0-8.3) gm/dl Albumin (3.4-5.0) gm/dl Globulin (2.5-4.0) gm/dl Albumin/Globulin Ratio (0.9-2) SARS-CoV-2, RNA, NAAT NEGATIVE (NEGATIVE) 09/12/21 09/12/21 Range/Units 13:43 13:43 WBC (4.8-10.8) K/uL RBC (4.7-6.1) M/uL Hgb (14.0-18.0) g/dL Hct (42-52) % MCV (80-100) fL MCH (25-34) pg MCHC (32-36) g/dL RDW Std Deviation (36.4-46.3) fL RDW Coeff of Georgette (11.5-14.5) % Plt Count (130-400) K/uL MPV (7.4-10.4) fL Immature Gran % (Auto) % Neut % (Auto) % Lymph % (Auto) % [place] % (Auto) % Eos % (Auto) % Baso % (Auto) % Neut # (Auto) (1.4-6.5) K/uL Lymph # (Auto) (1.2-3.4) K/uL [place] # (Auto) (0.11-0.59) K/uL Eos # (Auto) (0-0.5) K/uL Baso # (Auto) (0-0.2) K/uL Immature Gran # (Auto) (0.00-0.02) K/uL PT 11.9 (9.0-12.0) Seconds INR 1.1 (0.9-1.1) APTT 25.9 (21.0-31.0) Seconds PTT Ratio 0.9 Sodium 135 L (136-145) mmol/L Potassium 3.6 (3.5-5.1) mmol/L Chloride 101 (98-107) mmol/L Carbon Dioxide 27 (21-32) mmol/L Anion Gap 7 (3-11) BUN 17 (6-23) mg/dl Creatinine 1.11 (0.6-1.4) mg/dl Est Cr Clr Drug Dosing 104.7 ml/min Est GFR ( Amer) 89.9 ml/min Est GFR (Non-Af Amer) 77.6 ml/min BUN/Creatinine Ratio 15.3 (10-20) Glucose 112 H (70-99(Fasting)) mg/dl POC Glucose (70-99) mg/dl Calcium 9.2 (8.5-10.1) mg/dl Magnesium 1.8 (1.7-2.4) mg/dl Total Bilirubin 1.2 H (0.2-1.0) mg/dl AST 30 (13-39) U/L ALT 48 (7-52) U/L Alkaline Phosphatase 53 (34-104) U/L Troponin I High Sens 23.9 H (0-20) pg/ml Total Protein 7.5 (6.0-8.3) gm/dl Albumin 4.1 (3.4-5.0) gm/dl Globulin 3.4 (2.5-4.0) gm/dl Albumin/Globulin Ratio 1.2 (0.9-2) SARS-CoV-2, RNA, NAAT (NEGATIVE) Administered Medications Atorvastatin Calcium (Atorvastatin 40 Mg Tab) 40 mg PO QAM DESIRE Stop: 10/13/21 08:59 Last Admin: 09/13/21 07:42 Dose: 40 mg Documented by: [id number] Famotidine 20 mg/ Syringe 5 mls @ 2.5 mls/min IV Q12H DESIRE Stop: 10/12/21 17:59 Last Admin: 09/13/21 06:22 Dose: 2.5 mls/min Documented by: [id number] Admin: 09/12/21 21:00 Dose: 2.5 mls/min Documented by: [id number] Metoprolol Tartrate (Metoprolol Tartrate 100 Mg Tab) 100 mg PO BID DESIRE Stop: 10/12/21 20:59 Last Admin: 09/13/21 07:42 Dose: 100 mg Documented by: [id number] Admin: 09/12/21 21:00 Dose: 100 mg Documented by: [id number] Discontinued Medications Tenecteplase 25 mg/ Syringe 5 mls @ 60 mls/min IV NOW ONE; Protocol Stop: 09/12/21 13:44 Last Admin: 09/12/21 13:45 Dose: 60 mls/min Documented by: [id number] Cosigned by: [id number] Ioversol (Optiray 320 125ml) 120 ml IV ONCE ONE Stop: 09/12/21 13:18 Last Admin: 09/12/21 13:18 Dose: 120 ml Documented by: [id number] Labetalol HCl (Labetalol Hcl Iv 5 Mg/Ml 20ml) Confirm Administered Dose 10 mg IV .STK-MED ONE Stop: 09/12/21 13:42 Last Admin: 09/12/21 13:43 Dose: 10 mg Documented by: [id number] Cosigned by: [id number] Miscellaneous (Stat Iv) 1 ea N/A NOW STA Stop: 09/12/21 13:34 Last Admin: 09/12/21 13:47 Dose: 1 ea Documented by: [id number] Sodium Chloride (Sodium Chloride 0.9% 10ml Flush) 20 ml IV NOW STA Stop: 09/12/21 13:34 Last Admin: 09/12/21 13:47 Dose: 20 ml Documented by: [id number] Imaging Data Radiologist's Impression: Head CT 09/12/21 12:42 CT head/brain wo con CLINICAL HISTORY: 51 years-old Male with Stroke Like Symptoms. Acute strokelike symptoms TECHNIQUE: Multiple axial CT images of the head were obtained without contrast. A dose lowering technique was utilized adhering to the principles of ALARA. COMPARISON: Head CT 01/18/2020 FINDINGS: Study is mildly motion degraded. No acute intracranial hemorrhage, midline shift, intracranial mass, hydrocephalus, territorial ischemia or abnormal extra-axial collection. The calvarium is intact. The paranasal sinuses, mastoid air cells, and middle ear cavities are clear. IMPRESSION: No acute intracranial abnormality. ACT 112: Negative or not required by law. The above report was generated using voice recognition software. It may contain grammatical, syntax or spelling errors. Electronically signed by: Abe Tatum M.D. 09/12/2021 1:01 PM Head CTA 09/12/21 12:42 HEAD & NECK CTA HISTORY: Weakness. Stroke Like Symptoms TECHNIQUE: Multiaxial CT images of the head were performed following the intravenous administration of contrast to evaluate the major cerebral vessels. Multiaxial CT images of the neck were also performed following the intravenous administration of contrast to evaluate the major cervical vessels. Maximum intensity projection images were also obtained. A dose lowering technique was utilized adhering to the principles of ALARA. COMPARISON: Noncontrast head CT 09/12/2021. FINDINGS: There is no mass, hematoma, midline shift, or acute infarct. Visualized intracranial internal carotid arteries, distal vertebral arteries, and basilar artery are widely patent. There is no significant stenosis, occlusion, or aneurysm seen within the bilateral MCAs and java grails developer. Hypoplastic right DULCE MARIA and right vertebral artery, unchanged. The major dural venous sinuses appear patent. Focal abrupt cut off within the distal left DULCE MARIA best seen on images 127 through 129. However, this remains unchanged and is therefore considered to be chronic. Otherwise, no acute focal occlusion identified within the left DULCE MARIA. The aortic arch and proximal great vessels are widely patent. There is no significant stenosis, occlusion, or dissection identified within the bilateral common carotid, internal carotid, or vertebral arteries. Hypoplastic right vertebral artery. This remains unchanged. Minimal calcified plaque within the left carotid bulb. IMPRESSION: 1. 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 Otherwise, no significant stenosis, occlusion, or aneurysm within the remaining vessels of the [place]. 2. No significant stenosis, occlusion, or dissection identified within the carotid or vertebral arteries. ACT 112: Negative or not required by law. Electronically signed by: Justus Chamberlain M.D. 09/12/2021 1:35 PM Neck CTA 09/12/21 12:42 HEAD & NECK CTA HISTORY: Weakness. Stroke Like Symptoms TECHNIQUE: Multiaxial CT images of the head were performed following the intravenous administration of contrast to evaluate the major cerebral vessels. Multiaxial CT images of the neck were also performed following the intravenous administration of contrast to evaluate the major cervical vessels. Maximum intensity projection images were also obtained. A dose lowering technique was utilized adhering to the principles of ALARA. COMPARISON: Noncontrast head CT 09/12/2021. FINDINGS: There is no mass, hematoma, midline shift, or acute infarct. Visualized intracra nial internal carotid arteries, distal vertebral arteries, and basilar artery are widely patent. There is no significant stenosis, occlusion, or aneurysm seen within the bilateral MCAs and java grails developer. Hypoplastic right DULCE MARIA and right vertebral artery, unchanged. The major dural venous sinuses appear patent. Focal abrupt cut off within the distal left DULCE MARIA best seen on images 127 through 129. However, this remains unchanged and is therefore considered to be chronic. Otherwise, no acute focal occlusion identified within the left DULCE MARIA. The aortic arch and proximal great vessels are widely patent. There is no significant stenosis, occlusion, or dissection identified within the bilateral common carotid, internal carotid, or vertebral arteries. Hypoplastic right vertebral artery. This remains unchanged. Minimal calcified plaque within the left carotid bulb. IMPRESSION: 1. 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 Otherwise, no significant stenosis, occlusion, or aneurysm within the remaining vessels of the [place]. 2. No significant stenosis, occlusion, or dissection identified within the brannon tid or vertebral arteries. ACT 112: Negative or not required by law. Electronically signed by: Justus Chamberlain M.D. 09/12/2021 1:[address] 09/12/21 14:16 CT SCAN OF THE BRAIN WITHOUT IV CONTRAST CLINICAL HISTORY: Strokelike symptoms. COMPARISON STUDY: CT of the brain performed earlier the same day 09/12/2021. TECHNIQUE: Unenhanced axial CT scan of the brain is performed from the vertex to the skull base. A dose lowering technique was utilized adhering to the principles of ALARA. The examination is significantly degraded by residual IV contrast. CT DOSE: 729.78 mGycm FINDINGS: Brain parenchyma: The brain parenchyma is normal in appearance. There is no evidence of hemorrhage, mass effect, or acute territorial ischemia. Lipscomb-white matter differentiation is preserved. No extra-axial fluid collection is seen. Ventricles, sulci, cisterns: Normal in configuration. Intracranial vasculature: The visualized intracranial vasculature at the skull base is normal in appearance. Calvarium: Unremarkable. Sinuses and mastoids: The visualized paranasal sinuses are clear. The mastoid air cells are well pneumatized. Orbits: The bony orbits are grossly intact. IMPRESSION: There is no evidence of hemorrhage, mass effect, or acute territorial ischemia. Note that the examination is degraded by residual IV cont rast throughout the intracranial circulation. ACT 112: Negative or not required by law. Electronically signed by: Riaz Wise M.D. 09/12/2021 2:28 PM Discharge Plan Visit Data Chief Complaint: Stroke Alert Stated Complaint: STROKE ED Provider: Dimas Naik Discharge Problem: Acute ischemic stroke, Atrial fibrillation, new onset Patient Disposition: Admitted As Inpatient Discharge Instructions Interventions: ED Discharge Assessment Last Done: 09/12/21 16:45
[2021-09-12] MEDS ORDERED: SODIUM CHLORIDE 0.9% 10ML FLUSH IV STA (13:33)
[2021-09-12] MEDS ORDERED: STAT IV STA (13:33)
--- NOTE | 2021-09-12 13:37 | CT Scan Report ---
HEAD & NECK CTA HISTORY: Weakness. Stroke Like Symptoms TECHNIQUE: Multiaxial CT images of the head were performed following the intravenous administration o f contrast to evaluate the major cerebral vessels. Multiaxial CT images of the neck were also perform ed following the intravenous administration of contrast to evaluate the major cervical vessels. Maxim um intensity projection images were also obtained. A dose lowering technique was utilized adhering to the principles of ALARA. COMPARISON: Noncontrast head CT 09/12/2021. FINDINGS: There is no mass, hematoma, midline shift, or acute infarct. Visualized intracranial internal carotid arteries, distal vertebral arteries, and basilar artery are widely patent. There is no significant s tenosis, occlusion, or aneurysm seen within the bilateral MCAs and wood heel flap trimmer. Hypoplastic right DULCE MARIA and ri ght vertebral artery, unchanged. The major dural venous sinuses appear patent. Focal abrupt cut off w ithin the distal left DULCE MARIA best seen on images 127 through 129. However, this remains unchanged and is therefore considered to be chronic. Otherwise, no acute focal occlusion identified within the left A CA. The aortic arch and proximal great vessels are widely patent. There is no significant stenosis, occ lusion, or dissection identified within the bilateral common carotid, internal carotid, or vertebral arteries. Hypoplastic right vertebral artery. This remains unchanged. Minimal calcified plaque within the left carotid bulb. IMPRESSION: 1. 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 Otherwise, no significant stenosis, occlu barbara, or aneurysm within the remaining vessels of the [place]. 2. No significant stenosis, occlusion, or dissection identified within the carotid or vertebral arter ies. ACT 112: Negative or not required by law. Electronically signed by: Justus Chamberlain M.D. 09/12/2021 1:35 PM
--- NOTE | 2021-09-12 13:37 | CT Scan Report ---
HEAD & NECK CTA HISTORY: Weakness. Stroke Like Symptoms TECHNIQUE: Multiaxial CT images of the head were performed following the intravenous administration o f contrast to evaluate the major cerebral vessels. Multiaxial CT images of the neck were also perform ed following the intravenous administration of contrast to evaluate the major cervical vessels. Maxim um intensity projection images were also obtained. A dose lowering technique was utilized adhering to the principles of ALARA. COMPARISON: Noncontrast head CT 09/12/2021. FINDINGS: There is no mass, hematoma, midline shift, or acute infarct. Visualized intracranial internal carotid arteries, distal vertebral arteries, and basilar artery are widely patent. There is no significant s tenosis, occlusion, or aneurysm seen within the bilateral MCAs and executor of estate. Hypoplastic right DULCE MARIA and ri ght vertebral artery, unchanged. The major dural venous sinuses appear patent. Focal abrupt cut off w ithin the distal left DULCE MARIA best seen on images 127 through 129. However, this remains unchanged and is therefore considered to be chronic. Otherwise, no acute focal occlusion identified within the left A CA. The aortic arch and proximal great vessels are widely patent. There is no significant stenosis, occ lusion, or dissection identified within the bilateral common carotid, internal carotid, or vertebral arteries. Hypoplastic right vertebral artery. This remains unchanged. Minimal calcified plaque within the left carotid bulb. IMPRESSION: 1. 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 Otherwise, no significant stenosis, occlu barbara, or aneurysm within the remaining vessels of the [place]. 2. No significant stenosis, occlusion, or dissection identified within the carotid or vertebral arter ies. ACT 112: Negative or not required by law. Electronically signed by: Justus Chamberlain M.D. 09/12/2021 1:35 PM
[2021-09-12] MEDS ORDERED: LABETALOL HCL IV 5 MG/ML 20ML IV ONE (13:41)
[2021-09-12] MEDS ORDERED: TENECTEPLASE 25 MG in SYRINGE 0 ML IV ONE (13:43)
[2021-09-12] MEDS ORDERED: No Aspirin within 24hrs of THROMBOLYTIC-Stroke PO SCH (13:45)
[2021-09-12 14:13] LABS: INR 1.1 (0.9-1.1); Partial Thromboplastin Ratio 0.9; Partial Thromboplastin Time 25.9 Seconds (21.0-31.0); Prothrombin Time 11.9 Seconds (9.0-12.0)
[2021-09-12 14:21] LABS: Albumin Globulin Ratio 1.2 (0.9-2); Albumin Level 4.1 gm/dl (3.4-5.0); BUN Creatinine Ratio 15.3 (10-20); Bilirubin,Total 1.2 mg/dl (0.2-1.0); Calcium 9.2 mg/dl (8.5-10.1); Creatinine Clr Calc Pharmacy 104.7 ml/min; Est GFR (African American) 89.9 ml/min; Est GFR (Non-African American) 77.6 ml/min; Globulin 3.4 gm/dl (2.5-4.0); Magnesium 1.8 mg/dl (1.7-2.4); Potassium 3.6 mmol/L (3.5-5.1); Total Protein 7.5 gm/dl (6.0-8.3)
[2021-09-12 14:26] LABS: Troponin I High Sensitivity 23.9 pg/ml (0-20)
[2021-09-12 14:29] LABS: Basophils # (auto) 0.02 K/uL (0-0.2); Basophils % (auto) 0.3 %; Eosinophils % (auto) 1.5 %; Hematocrit (blood only) 40.2 % (42-52); Hemoglobin 13.5 g/dL (14.0-18.0); Immature Granulocytes # (auto) 0.03 K/uL (0.00-0.02); Immature Granulocytes % (auto) 0.4 %; Lymphocytes # (auto) 2.99 K/uL (1.2-3.4); Lymphocytes % (auto) 44.4 %; Mean Corpuscular Hgb Conc 33.6 g/dL (32-36); Mean Corpuscular Volume 86.5 fL (80-100); Mean Platelet Volume 12.1 fL (7.4-10.4); Monocytes # (auto) 0.91 K/uL (0.11-0.59); Monocytes % (auto) 13.5 %; Neutrophils # (auto) 2.69 K/uL (1.4-6.5); Neutrophils % (auto) 39.9 %; Platelet Count 185 K/uL (130-400); RDW Coefficient of Variation 14.6 % (11.5-14.5); RDW Standard Deviation 45.5 fL (36.4-46.3); Red Blood Count 4.65 M/uL (4.7-6.1); White Blood Count 6.74 K/uL (4.8-10.8)
--- NOTE | 2021-09-12 14:30 | CT Scan Report ---
CT SCAN OF THE BRAIN WITHOUT IV CONTRAST CLINICAL HISTORY: Strokelike symptoms. COMPARISON STUDY: CT of the brain performed earlier the same day 09/12/2021. TECHNIQUE: Unenhanced axial CT scan of the brain is performed from the vertex to the skull base. A d ose lowering technique was utilized adhering to the principles of ALARA. The examination is significa ntly degraded by residual IV contrast. CT DOSE: 729.78 mGycm FINDINGS: Brain parenchyma: The brain parenchyma is normal in appearance. There is no evidence of hemorrhage, m ass effect, or acute territorial ischemia. Lipscomb-white matter differentiation is preserved. No extra-a xial fluid collection is seen. Ventricles, sulci, cisterns: Normal in configuration. Intracranial vasculature: The visualized intracranial vasculature at the skull base is normal in appe arance. Calvarium: Unremarkable. Sinuses and mastoids: The visualized paranasal sinuses are clear. The mastoid air cells are well pneu matized. Orbits: The bony orbits are grossly intact. IMPRESSION: There is no evidence of hemorrhage, mass effect, or acute territorial ischemia. Note that the examination is degraded by residual IV contrast throughout the intracranial circulation. ACT 112: Negative or not required by law. Electronically signed by: Riaz Wise M.D. 09/12/2021 2:28 PM
--- NOTE | 2021-09-12 14:49 | XRay Report ---
SINGLE VIEW CHEST CLINICAL HISTORY: Strokelike symptoms. FINDINGS: 2 AP, portable, upright chest radiographs are compared to study dated 06/19/2019. The heart is enlarged. The pulmonary vasculature is noncongested. Suspect right middle lobe atelectasis. No foc al airspace consolidation or large pleural effusion is identified. No pneumothorax is seen. The bony thorax is grossly intact. IMPRESSION: 1. Cardiomegaly without radiographic evidence of congestive failure. 2. Question right middle lobe atelectasis. Correlate with dedicated PA and lateral views. ACT 112: Negative or not required by law. Electronically signed by: Riaz Wise M.D. 09/12/2021 2:48 PM
--- NOTE | 2021-09-12 15:30 | History & Physical Report ---
Date of Service September 12, 2021 Assessment & Plan (1) Acute ischemic stroke: Plan: Patient presented with stroke symptoms of right facial droop, right sided weakness, inability to ambulate, and aphasia - Deemed thrombolytic candidate with last known well at 11:15- thrombolytic administered at 1343 - Risk factors: HTN, new onset afib, previous smoker, HLD, and previous CVA - CTA head with chronic DULCE MARIA occlusion - Neurochecks q 2 hour- repeat non-con head CT with any acute change - BP goal <185/105 - Hold ASA for 24 hours post tNKASE - Continue statin 40mg likely increase to high intensity in am - HGB A1C and Lipid panel in the morning - Hold PENNY at this time - ECHO - stroke education - provide by discharge - PT/OT consultation evaluate for rehab needs - Neurology and Cardiology consultations placed (2) Atrial fibrillation, new onset: Plan: Currently rate controlled, with unkown onset of of Afib - He is on Metoprolol tartrate 100mg PO BID - IVP Metoprolol for any rate sustained > 100 - Keep K >4.0 and Mag ~ 2.0 - ECHO as above - CHADSVASC- 3- transition to anticoagulation Lovenox/VKA or DOAC following 24 hours post tNKASE would be appropriate (3) History of CVA (cerebrovascular accident): Plan: HX of left superior parietal lobe- with asa as continued therapy - May have followed with neurology Gesinger Dr. 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 Patient presents to the EMD today via EMS from [facility] for new onset of weakness of his right side, unable to ambulate and aphasia. The patient reportedly was seen around 11:15 and when checked on again was noted to have the above symptoms. In the EMD the patient arrived as a stroke alert. He [place] [facility]A of the head and neck and CT of the head completed, revealing chronic DULCE MARIA occlusion. He was deemed a thrombolytic candidate and consented to tPA per the EMD note. The patient had routine labs performed and TnKASE was administered ~1340. The hospitalist service was then consulted for admission. Prior to evaluation the patient appeared to become aphasiac again. He had a repeat Head CT performed which was interpreted by radiology as no acute change or bleed but noting remaining contrast. Patient was evaluated and after further prompting he was able to speak and participate in the exam. He is exhibiting some expressive aphasia he remains with right sided weakness right lower leg worse than right upper arm. He endorses that he feels better than he did this morning. Also endorses that he had a headache this morning at some point but was unable to elaborate, he also does not recall a history of Afib and is noted to be in Afib on admission. Patient will be admitted to the ICU for continued neurological exam, BP control if needed. Will add on Type and screen and patient passed his dysphagia screening post thrombolytic. COVID test on admission: NEGATIVE Allergies Allergy/AdvReac Type Severity Reaction Status Date / Time fish derived Allergy Unknown Verified 09/12/21 13:53 shellfish derived Allergy Unknown Verified 09/12/21 13:53 Home Medications Medication Instructions Recorded Confirmed Type aspirin 81 mg tablet,delayed 81 mg PO QAM #30 tab 06/22/19 09/12/21 Rx release (Ecotrin Low Strength) atorvastatin 40 mg tablet 40 mg PO QAM #30 tab 06/22/19 09/12/21 Rx eplerenone 25 mg tablet 25 mg PO DAILY 01/18/20 09/12/21 History hydrochlorothiazide 25 mg tablet 25 mg PO DAILY 05/27/21 09/12/21 History lactulose 10 gram/15 mL oral 15 ml PO BID ml 05/27/21 09/12/21 History solution metoprolol tartrate 100 mg tablet 100 mg PO BID tab 05/27/21 09/12/21 History glipizide 5 mg tablet 5 mg PO BID 09/12/21 09/12/21 History losartan 50 mg tablet 50 mg PO DAILY 09/12/21 09/12/21 History olopatadine 0.1 % eye drops 1 drp OPB BID 09/12/21 09/12/21 History Past Med/Surg History Medical History (Updated 09/12/21 @ 15:46 by Melecio Grajeda MD) Anxiety Chest pain Eczema History of alcohol abuse History of drug abuse History of tobacco use HTN (hypertension) Surgical History Status post tendon repair history left finger tendon repair Family History Brother Coronary heart disease [place] in early 40's Stroke, Onset Age: 42 Father Stroke Stomach cancer Mother Stroke Uncle Stomach cancer Social History Smoking Status: Former smoker Tobacco Type: Cigarettes Second Hand Exposure: Yes; Hx Alcohol Use: No Hx Substance Use: Yes Last Used Substance Other:: acid and mushrooms Substance Use Type Other:: Quit 2012 - Prior cocaine, acid, mushrooms, marijuana Preferred Language: Cymraes Communication Ability: Effective Typing Bookkeeper Required: No Beliefs That Will Affect Care: None Current Living Situation: Other Current Living Situation Comment: [facility] Feels Safe at Home: Yes Assistive Devices: Denture - Upper and Glasses Review of Systems Review of Systems: REVIEW OF SYSTEMS: Constitutional: No fever, sweats or chills Eyes: No diplopia, no worsening or blurred vision ENT: normal hearing, no trouble swallowing Respiratory: No cough, sputum, dyspnea at rest or on exertion Cardiovascular: No chest pain, tightness or palpitations Abdomen: No pain, nausea, vomiting, diarrhea or constipation Musculoskeletal: No joint pain, calf pain, swelling Neurologic: (+) right sided weakness, and facial droop, with aphasia, No numbness/tingling, or balance problems Psychiatric: No anxiety or depression Skin: No rash or itch Physical Exam Physical Exam: PHYSICAL EXAM: General: awake, alert, no apparent distress Head: Normocephalic, atraumatic ENT: PERRLA, EOMI, no pharyngeal exudate, mucous membranes dry Neuro: AAO x 3, speech clear and appropriate, expressive aphasia that improved as exam went on, difficulty with interpreting images and answers in 1 word, sensation equal upper and lower bilaterally, finger to nose slow and discoordinated- worse with right, strength RUE 4/5, LUE 5/5, RLE 2/5, LLE 5/5. NIHSS- 6 Chest: equal rise and fall of the chest, no accessory muscle use, no heaves or thrills, Clear to auscultation, on room air, Cardiac: irregular rate and rhythm, telemetry reviewed- afib, skin warm dry, cap refill <3 seconds, peripheral pulses +2 no JVD, no murmur, no edema GI: NABS x 4 quadrants, soft, nontender to palpation, no rebound, guarding or tenderness : Spontaneously voiding, no pain, no CVA tenderness, Extremities: Normal inspection, no peripheral edema or erythema, calfs nontender to palpation Psych: Normal mood and affect Skin: no rash or erythema Results & Data Results & Data ([facility]) Vital Signs (Past 12 Hours) Vital Signs Temp Pulse Pulse Resp BP BP Pulse Ox 09/12/21 14:45 99 H 18 141/96 H 97 09/12/21 14:30 100 H 20 137/105 H 97 09/12/21 14:22 90 18 125/97 09/12/21 14:00 104 H 97 H 14 134/97 134/97 98 09/12/21 13:45 98 H 15 139/92 99 09/12/21 13:44 112 H 17 132/93 99 09/12/21 13:34 106 H 18 161/113 H 09/12/21 13:30 108 H 16 09/12/21 13:16 100 09/12/21 13:15 142/107 H 09/12/21 13:00 36.7 C 109 H 109 H 20 142/107 H 142/107 H 95 Laboratory Results Abnormal lab results 09/12/21 09/12/21 09/12/21 Range/Units 13:21 13:43 13:43 RBC 4.65 L (4.7-6.1) M/uL Hgb 13.5 L (14.0-18.0) g/dL Hct 40.2 L (42-52) % RDW Coeff of Georgette 14.6 H (11.5-14.5) % MPV 12.1 H (7.4-10.4) fL [place] # (Auto) 0.91 H (0.11-0.59) K/uL Immature Gran # (Auto) 0.03 H (0.00-0.02) K/uL Sodium 135 L (136-145) mmol/L Glucose 112 H (70-99(Fasting)) mg/dl POC Glucose 100 H (70-99) mg/dl Total Bilirubin 1.2 H (0.2-1.0) mg/dl Troponin I High Sens 23.9 H (0-20) pg/ml Diagnostic Findings Chest X-Ray 09/12/21 12:42 SINGLE VIEW CHEST CLINICAL HISTORY: Strokelike symptoms. FINDINGS: 2 AP, portable, upright chest radiographs are compared to study dated 06/19/2019. The heart is enlarged. The pulmonary vasculature is noncongested. Suspect right middle lobe atelectasis. No focal airspace consolidation or large pleural effusion is identified. No pneumothorax is seen. The bony thorax is grossly intact. IMPRESSION: 1. Cardiomegaly without radiographic evidence of congestive failure. 2. Question right middle lobe atelectasis. Correlate with dedicated PA and la teral views. ACT 112: Negative or not required by law. Electronically signed by: Riaz Wise M.D. 09/12/2021 2:[address] 09/12/21 12:42 CT head/brain wo con CLINICAL HISTORY: 51 years-old Male with Stroke Like Symptoms. Acute strokelike symptoms TECHNIQUE: Multiple axial CT images of the head were obtained without contrast. A dose lowering technique was utilized adhering to the principles of ALARA. COMPARISON: Head CT 01/18/2020 FINDINGS: Study is mildly motion degraded. No acute intracranial hemorrhage, midline shift, intracranial mass, hydrocephalus, territorial ischemia or abnormal extra- axial collection. The calvarium is intact. The paranasal sinuses, mastoid air cells, and middle ear cavities are clear. IMPRESSION: No acute intracranial abnormality. ACT 112: Negative or not required by law. The above report was generated using voice recognition software. It may contain grammatical, syntax or spelling errors. Electronically signed by: Abe Tatum M.D. 09/12/2021 1:01 PM Head CTA 09/12/21 12:42 HEAD & NECK CTA HISTORY: Weakness. Stroke Like Symptoms TECHNIQUE: Multiaxial CT images of the head were performed following the intravenous administration of contrast to evaluate the major cerebral vessels. Multiaxial CT images of the neck were also performed following the intravenous administration of contrast to evaluate the major cervical vessels. Maximum intensity projection images were also obtained. A dose lowering technique was utilized adhering to the principles of ALARA. COMPARISON: Noncontrast head CT 09/12/2021. FINDINGS: There is no mass, hematoma, midline shift, or acute infarct. Visualized intracranial internal carotid arteries, distal vertebral arteries, and basilar artery are widely patent. There is no significant stenosis, occlusion, or aneurysm seen within the bilateral MCAs and brake shoe rebuilder. Hypoplastic right DULCE MARIA and right vertebral artery, unchanged. The major dural venous sinuses appear patent. Focal abrupt cut off within the distal left DULCE MARIA best seen on images 127 through 129. However, this remains unchanged and is therefore considered to be chronic. Otherwise, no acute focal occlusion identified within the left DULCE MARIA. The aortic arch and proximal great vessels are widely patent. There is no significant stenosis, occlusion, or dissection identified within the bilateral common carotid, internal carotid, or vertebral arteries. Hypoplastic right vertebral artery. This remains unchanged. Minimal calcified plaque within the left carotid bulb. IMPRESSION: 1. 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 Otherwise, no significant stenosis, occlusion, or aneurysm within the remaining vessels of the [place]. 2. No significant stenosis, occlusion, or dissection identified within the carotid or vertebral arteries. ACT 112: Negative or not required by law. Electronically signed by: Justus Chamberlain M.D. 09/12/2021 1:35 PM Neck CTA 09/12/21 12:42 HEAD & NECK CTA HISTORY: Weakness. Stroke Like Symptoms TECHNIQUE: Multiaxial CT images of the head were performed following the intravenous administration of contrast to evaluate the major cerebral vessels. Multiaxial CT images of the neck were also performed following the intravenous administration of contrast to evaluate the major cervical vessels. Maximum intensity projection images were also obtained. A dose lowering technique was utilized adhering to the principles of ALARA. COMPARISON: Noncontrast head CT 09/12/2021. FINDINGS: There is no mass, hematoma, midline shift, or acute infarct. Visualized intracranial internal carotid arteries, distal vertebral arteries, and basilar artery are widely patent. There is no significant stenosis, occlusion, or aneurysm seen within the bilateral MCAs and brake shoe rebuilder. Hypoplastic right DULCE MARIA and right vertebral artery, unchanged. The major dural venous sinuses appear patent. Focal abrupt cut off within the distal left DULCE MARIA best seen on images 127 through 129. However, this remains unchanged and is therefore considered to be chronic. Otherwise, no acute focal occlusion identified within the left DULCE MARIA. The aortic arch and proximal great vessels are widely patent. There is no significant stenosis, occlusion, or dissection identified within the bilateral common carotid, internal carotid, or vertebral arteries. Hypoplastic right vertebral artery. This remains unchanged. Minimal calcified plaque within the left carotid bulb. IMPRESSION: 1. 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 Otherwise, no significant stenosis, occlusion, or aneurysm within the remaining vessels of the [place]. 2. No significant stenosis, occlusion, or dissection identified within the carotid or vertebral arteries. ACT 112: Negative or not required by law. Electronically signed by: Justus Chamberlain M.D. 09/12/2021 1:[address] 09/12/21 14:16 CT SCAN OF THE BRAIN WITHOUT IV CONTRAST CLINICAL HISTORY: Strokelike symptoms. COMPARISON STUDY: CT of the brain performed earlier the same day 09/12/2021. TECHNIQUE: Unenhanced axial CT scan of the brain is performed from the vertex to the skull base. A dose lowering technique was utilized adhering to the principles of ALARA. The examination is significantly degraded by residual IV contrast. CT DOSE: 729.78 mGycm FINDINGS: Brain parenchyma: The brain parenchyma is normal in appearance. There is no evidence of hemorrhage, mass effect, or acute territorial ischemia. Lipscomb-white matter differentiation is preserved. No extra-axial fluid collection is seen. Ventricles, sulci, cisterns: Normal in configuration. Intracranial vasculature: The visualized intracranial vasculature at the skull base is normal in appearance. Calvarium: Unremarkable. Sinuses and mastoids: The visualized paranasal sinuses are clear. The mastoid air cells are well pneumatized. Orbits: The bony orbits are grossly intact. IMPRESSION: There is no evidence of hemorrhage, mass effect, or acute territorial ischemia. Note that the examination is degraded by residual IV contrast throughout the intracranial circulation. ACT 112: Negative or not required by law. Electronically signed by: Riaz Wise M.D. 09/12/2021 2:28 PM Medications Administered Discontinued Medications Tenecteplase 25 mg/ Syringe 5 mls @ 60 mls/min IV NOW ONE; Protocol Stop: 09/12/21 13:44 Last Admin: 09/12/21 13:45 Dose: 60 mls/min Documented by: [id number] Cosigned by: [id number] Ioversol (Optiray 320 125ml) 120 ml IV ONCE ONE Stop: 09/12/21 13:18 Last Admin: 09/12/21 13:18 Dose: 120 ml Documented by: [id number] Labetalol HCl (Labetalol Hcl Iv 5 Mg/Ml 20ml) Confirm Administered Dose 10 mg IV .STK-MED ONE Stop: 09/12/21 13:42 Last Admin: 09/12/21 13:43 Dose: 10 mg Documented by: [id number] Cosigned by: [id number] Miscellaneous (Stat Iv) 1 ea N/A NOW STA Stop: 09/12/21 13:34 Last Admin: 09/12/21 13:47 Dose: 1 ea Documented by: [id number] Sodium Chloride (Sodium Chloride 0.9% 10ml Flush) 20 ml IV NOW STA Stop: 09/12/21 13:34 Last Admin: 09/12/21 13:47 Dose: 20 ml Documented by: [id number] Home Medications aspirin 81 mg tablet,delayed release (Ecotrin Low Strength) 81 mg PO QAM #30 tab 06/22/19 [Rx Confirmed 09/12/21] atorvastatin 40 mg tablet 40 mg PO QAM #30 tab 06/22/19 [Rx Confirmed 09/12/21] eplerenone 25 mg tablet 25 mg PO DAILY 01/18/20 [History Confirmed 09/12/21] hydrochlorothiazide 25 mg tablet 25 mg PO DAILY 05/27/21 [History Confirmed 09/12/21] lactulose 10 gram/15 mL oral solution 15 ml PO BID ml 05/27/21 [History Confirmed 09/12/21] metoprolol tartrate 100 mg tablet 100 mg PO BID tab 05/27/21 [History Confirmed 09/12/21] glipizide 5 mg tablet 5 mg PO BID 09/12/21 [History Confirmed 09/12/21] losartan 50 mg tablet 50 mg PO DAILY 09/12/21 [History Confirmed 09/12/21] olopatadine 0.1 % eye drops 1 drp OPB BID 09/12/21 [History Confirmed 09/12/21] Active Medications Aspirin (No Aspirin Within 24hrs Of Thrombolytic-Stroke) 1 ea PO UD DESIRE Stop: 09/13/21 13:44 ECG Additional Comments: Atrial fibrillation with premature ventricular or aberrantly conducted complexes Right bundle branch block T wave abnormality, consider inferolateral ischemia Abnormal ECG When compared with ECG of 19-JAN-2020 06:31, Atrial fibrillation has replaced Sinus rhythm QRS duration has increased T wave inversion less evident in Lateral leads Code Status & VTE Plan Code Status CODE: FULL VTE: SCDs, no chemoprophylaxis x 24 hours post tNKASE VTE Prophylaxis Plan VTE Prophylaxis will be ordered: Yes Supervising Physician Co-Signing Physician Notes I supervised EDDIE Goel on this admission. I interviewed and examined the patient independently of him. The plan is as written in his note except for any following changes/exceptions: None 51yo M w/ hx of prior CVA and cardiomyopathy who presents as a stroke alert. Was last well at ~11:15am by the guards at his institution and was then found on the ground and unable to speak around noon. Also with right-sided facial droop and right-sided weakness. Brought to the ER where he had some improvement in speech, but thrombolytics were decided on by Tele-Stroke physician. Seen after TNK was pushed. Improvement in speech at that time. In the ER, found to be in afib as well. - Admit to ICU for 24 hour supervision. Stroke work-up as usual with MRI, neurology consult. PG Care Time/CCT Total # of Minutes Spent Total Time Spent with Patient: Total time spent is greater than 50% in coordination of care (as documented) at patient's floor/unit and/or counseling patient: Coding Level of Care Code 75577 Initial Inpt Care Lvl 3 Diagnoses Acute ischemic stroke I63.9 Atrial fibrillation, new onset I48.91 History of CVA (cerebrovascular accident) Z86.73 Elevated troponin R79.89 Cardiomyopathy I42.9 Amyloid heart muscle disease E85.4; I43 HTN (hypertension) I10 Hypertension type: essential hypertension (1) HTN (hypertension) Hypertension type: essential hypertension Qualified Code(s): I10 - Essential (primary) hypertension
--- NOTE | 2021-09-12 15:36 | Critical Care Consultation ---
Date of Consultation September 12, 2021 Assessment & Plan (1) Acute ischemic stroke: Continue frequent neurovascular checks. Continue with post thrombolytic protocol. CT head in 24 hours. Maintain blood pressure within parameters (<185/105). MRI of the brain along with echocardiogram and bubble study. (2) Atrial fibrillation, new onset: Rate controlled at this time, intrinsically. Will need long-term anticoagulation. (3) Chest pain: EKG ordered. Troponins ordered. Patient known to cardiology due to history of cardiomyopathy. Echo from 12/06/2019 with an LVEF of 50 to 55%. History of Present Illness Reason for Consultation: Post thrombolytic monitoring History of Present Illness 51-year-old male with past medical history of cardiomyopathy, CVA in 2020 status post tPA, anxiety, hypertension, dysphagia and obesity presenting to the hospital from [facility] due to weakness of his right side and inability to speak. Last known well time of 11:15 AM. Thrombolytic therapy was administered at 1:40 PM. Patient continues to have expressive aphasia and weakness on his right side. He was found to have new onset atrial fibrillation today. 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 He had a repeat CT head after early administration of thrombolytic therapy due to worsening expressive aphasia which was unchanged. No evidence of bleeding seen. Allergies Allergy/AdvReac Type Severity Reaction Status Date / Time fish derived Allergy Unknown Verified 09/12/21 13:53 shellfish derived Allergy Unknown Verified 09/12/21 13:53 Home Medications Medication Instructions Recorded Confirmed Type aspirin 81 mg tablet,delayed 81 mg PO QAM #30 tab 06/22/19 09/12/21 Rx release (Ecotrin Low Strength) atorvastatin 40 mg tablet 40 mg PO QAM #30 tab 06/22/19 09/12/21 Rx eplerenone 25 mg tablet 25 mg PO DAILY 01/18/20 09/12/21 History hydrochlorothiazide 25 mg tablet 25 mg PO DAILY 05/27/21 09/12/21 History lactulose 10 gram/15 mL oral 15 ml PO BID ml 05/27/21 09/12/21 History solution metoprolol tartrate 100 mg tablet 100 mg PO BID tab 05/27/21 09/12/21 History glipizide 5 mg tablet 5 mg PO BID 09/12/21 09/12/21 History losartan 50 mg tablet 50 mg PO DAILY 09/12/21 09/12/21 History olopatadine 0.1 % eye drops 1 drp OPB BID 09/12/21 09/12/21 History Patient History Medical History (Updated 09/12/21 @ 15:46 by Melecio Grajeda MD) Anxiety Chest pain Eczema History of alcohol abuse History of drug abuse History of tobacco use HTN (hypertension) Surgical History Status post tendon repair history left finger tendon repair Family History Brother Coronary heart disease [place] in early 40's Stroke, Onset Age: 42 Father Stroke Stomach cancer Mother Stroke Uncle Stomach cancer Social History Smoking Status: Unknown if ever smoked Tobacco Type: Cigarettes Second Hand Exposure: No; Hx Alcohol Use: No Hx Substance Use: Yes Substance Use Type Other:: Quit 2011 - Prior cocaine, acid, mushrooms, marijuana Preferred Language: Luxembourger Communication Ability: Effective Construction Tech Required: No Beliefs That Will Affect Care: None Current Living Situation: Other Current Living Situation Comment: [facility] Feels Safe at Home: Yes Assistive Devices: None Review of Systems Review of Systems: All systems reviewed & are unremarkable except as noted in HPI & below Physical Exam Physical Exam: Constitutional: Patient appears in no apparent distress. Shackled to the bed. 2 m[facility]p guards by his side. Eyes: Pupils are equal round and reactive to light. Conjunctivae are normal. Anicteric sclera. Ears nose, mouth and throat: Mild right facial droop. Neck: Trachea is midline. Visual inspection is normal. Respiratory: Clear to auscultation bilaterally. No use of accessory muscles. No significant clubbing noted. Cardiovascular: Irregularly irregular. No murmur. No edema. Gastrointestinal: Normal bowel sounds, soft, nontender and nondistended. No hepatosplenomegaly noted. Musculoskeletal: Decreased founder president and ceo strength in the right hand. Unable to move his right leg. Skin: No rashes, warm dry and intact. Neurologic: Dense hemiplegia of the right lower extremity. Diminished founder president and ceo strength in the right hand. Facial droop noted. Mild expressive aphasia and receptive aphasia. Psychiatric: Alert and oriented x3 with a euthymic affect. Results & Data Results & Data ([facility]) Vital Signs (Past 12 Hours) Vital Signs Temp Pulse Pulse Resp BP BP Pulse Ox 09/12/21 15:15 98 H 88 17 123/96 123/96 92 09/12/21 15:00 97 H 80 20 125/83 125/83 98 09/12/21 14:45 101 H 99 H 15 141/96 H 141/96 H 95 09/12/21 14:30 111 H 100 H 12 137/105 H 137/105 H 97 09/12/21 14:22 90 18 125/97 09/12/21 14:00 104 H 97 H 14 134/97 134/97 98 09/12/21 13:45 98 H 15 139/92 99 09/12/21 13:44 112 H 17 132/93 99 09/12/21 13:34 106 H 18 161/113 H 09/12/21 13:30 108 H 16 09/12/21 13:16 100 09/12/21 13:15 142/107 H 09/12/21 13:00 36.7 C 109 H 109 H 20 142/107 H 142/107 H 95 Coding Level of Care Code 05820 Inpt Consult Level 4 Diagnoses Acute ischemic stroke I63.9 Atrial fibrillation, new onset I48.91 Chest pain R07.9
[2021-09-12] MEDS ORDERED: LABETALOL HCL IV 5 MG/ML 20ML IV PRN (17:19)
[2021-09-12] MEDS ORDERED: ICU PROTOCOL FOR HYPERGLYCEMIA PRN (17:19)
[2021-09-12] MEDS ORDERED: PHARMACIST DISCHARGE MED REC CONSULT PRN (17:19)
--- NOTE | 2021-09-12 19:02 | Magnetic Resonance Report ---
MRI OF THE BRAIN WITHOUT CONTRAST CLINICAL HISTORY: Stroke. Right arm and leg weakness. COMPARISON STUDY: MRI of the brain June 20, 2019. Head CT and CTA of the head September 12, 2021. TECHNIQUE: Utilizing a 1.5 Jasmyne magnet and dedicated coil, multiplanar, multiecho imaging of the bra in was performed without IV contrast. FINDINGS: Note is made of restricted diffusion within the superior medial left frontal lobe. This pre dominantly involves the left medial frontal gyrus. The largest component measures 3 x 1.7 cm. There i s mild associated cytotoxic edema with cortical swelling. There is no midline shift. No significant m ass effect is present. No evidence for hemorrhagic conversion. Ventricular system is unremarkable. Ba dominga cisterns are patent. No extra axial collections are present. No intracranial masses identified on this unenhanced examination. Calvarial signal is within normal limits. IMPRESSION: Acute left anterior cerebral artery distribution infarct, measuring approximately 3 x 1. 7 cm. Mild associated edema. No significant mass effect. No evidence for hemorrhagic conversion. ACT 112: Negative or not required by law. Electronically signed by: Tip Fleming M.D. 09/12/2021 7:00 PM
[2021-09-12] MEDS: METOPROLOL TARTRATE 100 MG TAB PO SCH (21:00)
[2021-09-12] MEDS: FAMOTIDINE 20 MG in SYRINGE 3 ML IV SCH (21:00)
[2021-09-13] MEDS: FAMOTIDINE 20 MG in SYRINGE 3 ML IV SCH ×2 (06:22→16:58)
[2021-09-13] MEDS: METOPROLOL TARTRATE 100 MG TAB PO SCH ×2 (07:42→20:03)
--- NOTE | 2021-09-13 08:07 | Critical Care Progress Note ---
Date of Service September 13, 2021 Assessment & Plan (1) Acute ischemic stroke: Plan: S/P TnKase 09/12. Symptoms improved. MRI brain completed yesterday with findings of an acute left anterior cerebral artery distribution infarct measuring 3.1 x 1.7 cm with mild associated edema. Continue frequent neurovascular checks. We will obtain a repeat CT head [address] hours [address] the last CT head to ensure no bleeding seen post thrombolytic therapy. We will also consider the initiation of full dose anticoagulation depending on neurology recommendations given his atrial fibrillation. Echocardiogram ordered. Will need PT/OT and speech consultations. (2) Atrial fibrillation, new onset: Plan: Rate controlled at this time, intrinsically. Will need long-term anticoagulation. (3) Chest pain: Plan: EKG with AF. Troponins mildly elevated. Patient known to cardiology due to history of cardiomyopathy. Echo from 12/06/2019 with an LVEF of 50 to 55%. Admission and Anticipated Discharge Date Admission Date: September 12, 2021 Subjective Patient doing much better today with less expressive aphasia. Able to lift his right hand and leg without issue. MRI of the brain obtained yesterday revealed acute left anterior cerebral artery distribution infarct measuring approximately 3 x 1.7 cm and mild associated edema. Review of Systems Review of Systems: All systems reviewed & are unremarkable except as noted in HPI & below Physical Exam Physical Exam: Constitutional: Patient appears in no apparent distress. Shackled to the bed. 2 residential guards by his side. Eyes: Pupils are equal round and reactive to light. Conjunctivae are normal. Anicteric sclera. Ears nose, mouth and throat: Mild right facial droop. Neck: Trachea is midline. Visual inspection is normal. Respiratory: Clear to auscultation bilaterally. No use of accessory muscles. No significant clubbing noted. Cardiovascular: Irregularly irregular. No murmur. No edema. Gastrointestinal: Normal bowel sounds, soft, nontender and nondistended. No hepatosplenomegaly noted. Musculoskeletal: Decreased protection specialist strength in the right hand. Moves all extremities. Skin: No rashes, warm dry and intact. Neurologic: Right protection specialist strength weaker than the left. Able to move his right leg and foot. Speech is still a bit slow with some expressive aphasia. Psychiatric: Alert and oriented x3 with a euthymic affect. Results & Data Results & Data ([facility]) Vital Signs (Past 12 Hours) Vital Signs Temp Pulse Pulse Resp BP BP Pulse Ox 04/23/22 05:47 68 18 122/75 98 09/13/21 05:00 81 22 115/91 97 09/13/21 04:47 69 18 115/91 98 09/13/21 04:30 78 18 117/85 98 09/13/21 04:00 81 20 138/87 98 09/13/21 03:47 36.5 C 71 18 108/88 97 09/13/21 03:42 77 17 106/88 96 09/13/21 03:30 85 15 122/84 94 09/13/21 03:00 91 H 22 121/92 98 09/13/21 02:47 18 121/92 99 09/13/21 02:30 84 17 113/89 98 09/13/21 02:00 82 21 125/89 97 09/13/21 01:47 36.6 C 87 18 125/88 98 09/13/21 01:30 81 13 125/88 97 09/13/21 01:00 83 18 107/79 95 09/13/21 00:47 36.6 C 74 18 107/79 96 09/13/21 00:05 84 20 132/87 97 09/13/21 00:00 94 H 21 127/99 98 09/12/21 23:47 36.8 C 80 18 132/87 97 09/12/21 23:43 78 09/12/21 23:41 126/91 99 09/12/21 23:30 94 H 141/96 H 97 09/12/21 23:00 90 129/96 97 09/12/21 22:47 36.9 C 85 14 127/87 98 09/12/21 22:30 82 127/87 98 09/12/21 22:00 85 20 130/98 95 09/12/21 21:47 36.9 C 81 22 130/98 98 09/12/21 21:45 98 H 19 97 09/12/21 21:30 78 13 135/95 97 09/12/21 21:17 36.9 C 81 14 129/90 98 09/12/21 21:15 82 14 96 09/12/21 21:00 98 H 16 129/90 97 09/12/21 20:47 36.9 C 80 20 136/88 96 09/12/21 20:45 83 15 96 09/12/21 20:30 91 H 16 136/88 97 09/12/21 20:19 36.9 C 91 H 18 126/94 96 09/12/21 20:15 77 23 98 Coding Level of Care Code 01589 Subseq Hosp Care Lvl 2 Diagnoses Atrial fibrillation, new onset I48.91 Chest pain R07.9 Acute ischemic stroke I63.9
--- NOTE | 2021-09-13 08:51 | Neurology Consultation ---
Date of Consultation September 13, 2021 Assessment & Plan (1) Acute ischemic stroke: (2) Atrial fibrillation, new onset: (3) Cardiomyopathy: Acute ischemic left anterior cerebral artery territory stroke presenting with right hemiparesis, leg greater than arm, and associated aphasia, status pos t administration of TNKase with near complete resolution of symptoms. Patient does not have an obvious hemiparesis this morning and his aphasia appears to have resolved although he does not exhibit much spontaneous speech at this time. This is this patient's second stroke within the past 27 months and occurs in the context of a cardiomyopathy, now with new onset atrial fibrillation. Other stroke risk factors for this patient include hypertension and hyperlipidemia. He is a former smoker as well. Continue standard post stroke/post thrombolysis care. Including repeat CT of the head to evaluate for any interval hemorrhage or other change. Continue to monitor patient's blood pressure per protocol. Would restart aspirin 81 mg/day at 24 hours assuming no interval hemorrhage on follow-up CT of the head. Optimize patient's statin, consider increasing dosage, check up-to-date lipid panel. Patient will need an up-to-date echocardiogram. Would also recommend anticoagulation/direct oral anticoagulant for secondary stroke risk reduction given patient's cardiomyopathy and atrial fibrillation. Would start after 24 hours, per protocol, assuming no interval hemorrhage on follow-up CT of the head. Follow-up with cardiology recommendations in this regard as well. Consultations with PT/OT/speech therapy. No need for additional neurological follow-up. History of Present Illness Reason for Consultation: stroke, s/p TNKase, new onset afib Requesting Physician: EDDIE Goel Attending Physician: Sriram Segovia MD History of Present Illness The patient is a 51-year-old male prisoner who presented with acute onset right- sided weakness, especially the leg and inability to speak yesterday morning, sometime between 1115 at noon. (However, it was also noted that he had been having some difficulty with walking over the past month.) He was exhibiting word finding difficulty and right-sided weakness, mostly the leg during his initial assessment. He required treatment with an intravenous antihypertensive medication and underwent a formal telestroke evaluation with a specialist at [facility]. CT angiography of the head and neck were completed. He was administered TNKase. This morning, the patient continues to exhibit relatively reduced spontaneous speech although he is able to name, repeat, and follow commands, see exam for further details. He denies headache or change in vision. His right-sided weakness has apparently resolved. Atrial fibrillation, new onset, has been noted during his current admission. The patient is currently in the intensive care unit, post TNKase protocol. I do note that he has followed with [facility] cardiology for cardiomyopathy, hypertension, and mitral regurgitation, I reviewed a note from May 27, 2021. There was some discussion regarding primary amyloidosis or possibly Fabry disease. (Lysosomal storage disease, X-linked inheritance, affects vascular endothelium, multiple organ systems may be involved) Has a twin brother with cardiomyopathy. It looks like he did have a fat pad biopsy and previous hematology evaluation and was not felt to have amyloidosis, however. I see that he was evaluated at [facility] in May 2019 for a subacute infarct in the left superior parietal lobe presenting with right-sided weakness and sensory disturbance that subsequently improved. He was evaluated by the [facility] neurology service at that time. Allergies Allergy/AdvReac Type Severity Reaction Status Date / Time fish derived Allergy Unknown Verified 09/12/21 13:53 shellfish derived Allergy Unknown Verified 09/12/21 13:53 Home Medications Medication Instructions Recorded Confirmed Type aspirin 81 mg tablet,delayed 81 mg PO QAM #30 tab 06/22/19 09/12/21 Rx release (Ecotrin Low Strength) atorvastatin 40 mg tablet 40 mg PO QAM #30 tab 06/22/19 09/12/21 Rx eplerenone 25 mg tablet 25 mg PO DAILY 01/18/20 09/12/21 History hydrochlorothiazide 25 mg tablet 25 mg PO DAILY 05/27/21 09/12/21 History lactulose 10 gram/15 mL oral 15 ml PO BID ml 05/27/21 09/12/21 History solution metoprolol tartrate 100 mg tablet 100 mg PO BID tab 05/27/21 09/12/21 History glipizide 5 mg tablet 5 mg PO BID 09/12/21 09/12/21 History losartan 50 mg tablet 50 mg PO DAILY 09/12/21 09/12/21 History olopatadine 0.1 % eye drops 1 drp OPB BID 09/12/21 09/12/21 History Patient History Medical History (Updated 09/12/21 @ 15:46 by Melecio Grajeda MD) Anxiety Chest pain Eczema History of alcohol abuse History of drug abuse History of tobacco use HTN (hypertension) Surgical History Status post tendon repair history left finger tendon repair Family History Brother Coronary heart disease [place] in early 40's Stroke, Onset Age: 42 Father Stroke Stomach cancer Mother Stroke Uncle Stomach cancer Social History Smoking Status: Former smoker Tobacco Type: Cigarettes Second Hand Exposure: Yes; Hx Alcohol Use: No Hx Substance Use: Yes Last Used Substance Other:: acid and mushrooms Substance Use Type Other:: Quit 2011 - Prior cocaine, acid, mushrooms, marijuana Preferred Language: Pashto Communication Ability: Effective Wildlife Refuge Manager Required: No Beliefs That Will Affect Care: None Current Living Situation: Other Current Living Situation Comment: [facility] Feels Safe at Home: Yes Assistive Devices: Denture - Upper and Glasses Review of Systems Constitutional: no fever and no chills Eyes: no blind spots and no diplopia Ear, Nose, Mouth, Throat: no ear pain and no hearing loss Respiratory: no cough and no dyspnea Cardiovascular: no chest pain and no palpitations Gastrointestinal: no constipation and no diarrhea/loose stools Genitourinary: no urinary incontinence or no urinary urgency Musculoskeletal: no muscle weakness and no muscle atrophy Integumentary: no rash and no lesions Neurologic: as per Subjective / HPI Psychiatric: no behavioral changes, no depression, no abnormal sleep pattern and no anxiety Hematologic / Lymphatic: no easy bruising and no lymphadenopathy Exam (Neuro) Constitutional: well developed and well nourished; no acute distress Eyes: normal visual reynoso by confrontation, PERRL, normal accommodation and EOM intact bilaterally; no fundoscopic abnormality, no nystagmus and no papilledema Cardiovascular: Vessels: normal carotid upstroke; no carotid bruit Neurologic: Oriented to:: Person, Place and Time Memory: Short Term Intact and Remote Intact Attention: Span Intact and Concentration Intact Language: Naming Objects and Repeating Phrases Speech Fluency: negative Dysarthria Speech Aphasia: negative Aphasia Fund of Knowledge: Current Events, Past History and Vocabulary Cranial Nerves: Normal II (Visual reynoso full to confrontation, visual acuity normal), III, IV, (Pupils equal round reactive to light and accommodation, eye movements normal), V (Facial sensation intact), VII (There is no facial droop or weakness), VIII (Hearing intact), IX, X (Palate elevates to midline), XI (Shoulder shrug intact) and XII (Tongue protrudes to midline) Motor Strength: Normal Lower Extremities and Normal Upper Extremities; negative Pronator Drift Motor Tone: Normal Lower Extremities and Normal Upper Extremities Muscle Bulk/Involuntary Movements: No Involuntary Movements; negative Muscle Atrophy Sensation: Light Touch Intact, Pain/Temperature Intact, Vibration Intact and Proprioception Intact Coordination: Normal; negative Limited Balance, Dysdiadochokinesia, Finger-Nose Abnormal or Heel-Hanna Abnormal Deep Tendon Reflexes: Rt Triceps: 2+, Lt Triceps: 2+, Rt Biceps: 2+, Lt Biceps: 2+, Rt Brachioradialis: 2+, Lt Brachioradialis: 2+, Rt Patellar: 2+, Lt Patellar: 2+, Rt Ankle: 2+ and Lt Ankle: 2+ Special Tests: negative Babinski Present Gait: Normal Station and Gait Details: Patient has an intact general neurological examination this morning. No obvious signs of a right hemiparesis or residual weakness to the right lower extremity. However, although he is able to name, repeat, and has normal comprehension of vocabulary, he does not exhibit much spontaneous speech. Results & Data ([facility]) Vital Signs (Past 12 Hours) Vital Signs Temp Pulse Pulse Resp BP BP Pulse Ox 09/13/21 05:47 68 18 122/75 98 09/13/21 05:00 81 22 115/91 97 09/13/21 04:47 69 18 115/91 98 09/13/21 04:30 78 18 117/85 98 09/13/21 04:00 81 20 138/87 98 09/13/21 03:47 36.5 C 71 18 108/88 97 09/13/21 03:42 77 17 106/88 96 09/13/21 03:30 85 15 122/84 94 09/13/21 03:00 91 H 22 121/92 98 09/13/21 02:47 18 121/92 99 09/13/21 02:30 84 17 113/89 98 09/13/21 02:00 82 21 125/89 97 09/13/21 01:47 36.6 C 87 18 125/88 98 09/13/21 01:30 81 13 125/88 97 09/13/21 01:00 83 18 107/79 95 09/13/21 00:47 36.6 C 74 18 107/79 96 09/13/21 00:05 84 20 132/87 97 09/13/21 00:00 94 H 21 127/99 98 09/12/21 23:47 36.8 C 80 18 132/87 97 09/12/21 23:43 78 09/12/21 23:41 126/91 99 09/12/21 23:30 94 H 141/96 H 97 09/12/21 23:00 90 129/96 97 09/12/21 22:47 36.9 C 85 14 127/87 98 09/12/21 22:30 82 127/87 98 09/12/21 22:00 85 20 130/98 95 09/12/21 21:47 36.9 C 81 22 130/98 98 09/12/21 21:45 98 H 19 97 09/12/21 21:30 78 13 135/95 97 09/12/21 21:17 36.9 C 81 14 129/90 98 09/12/21 21:15 82 14 96 09/12/21 21:00 98 H 16 129/90 97 09/12/21 20:47 36.9 C 80 20 136/88 96 09/12/21 20:45 83 15 96 09/12/21 20:30 91 H 16 136/88 97 09/12/21 20:19 36.9 C 91 H 18 126/94 96 09/12/21 20:15 77 23 98 09/12/21 20:00 91 H 14 126/94 96 Laboratory Results WBC 6.74, hemoglobin 13.5, hematocrit 40.2, MCV 86.5, platelet count 185, sodium 135, potassium 3.6, BUN 17, creatinine 1.11, glucose 112, magnesium 1.8, AST 30, ALT 48, high-sensitivity troponin 23.9 (mildly elevated). I reviewed a lipid panel from May 2019. Triglycerides 269, cholesterol 233, LDL 140, VLDL 54, HDL 39. A TSH from December 2019 was 0.572. Patient did have some abnormalities on serum protein electrophoresis and immunofixation in May 2019. Elevated free kappa/lambda ratio with a differential diagnosis that would include multiple myeloma, Armando Susan's macroglobulinemia, heavy chain disease, primary amyloidosis, light chain deposition disease, monoclonal gammopathy of undetermined significance, and lymphoproliferative disorder. Diagnostic Findings CT of the head completed yesterday was negative for hemorrhage or acute process. CT angiography of the head and neck revealed an occlusion of the distal left DULCE MARIA, although felt to be chronic when compared with the previous CT angiography done in 2019. Otherwise, no other significant vascular abnormality identified in the intracranial or cervical arteries. The right DULCE MARIA and right vertebral arteries are felt to be hypoplastic, also unchanged. MRI of the brain reveals an acute left anterior cerebral artery distribution infarct (frontal gyrus) measuring 3 x 1.7 cm with mild associated edema. No significant mass-effect. No evidence for hemorrhagic conversion. I reviewed the images as well as the radiologist interpretation of these tests. An electrocardiogram completed yesterday revealed atrial fibrillation with premature ventricular or aberrantly conducted complexes, right bundle branch block, T wave abnormality, consider inferolateral ischemia, 92 bpm. (An echocardiogram completed at [facility] in May 2019 had revealed normal left ventricular chamber size with severe concentric left ventricular hypertrophy, moderately reduced left ventricular systolic function with moderate global hypokinesis, ejection fraction 35 to 40%. Speckled pattern of the myocardium present in the left and right ventricle dubon along with the reduced left ventricular systolic function and biatrial enlargement suggestive of amyloid angiopathy. Both the left and right atria were severely dilated. There was no interatrial shunt with injection of contrast. Coding Level of Care Code 07993 Initial In Care Lvl 3 Diagnoses Acute ischemic stroke I63.9 Atrial fibrillation, new onset I48.91 Cardiomyopathy I42.9
[2021-09-13] MEDS ORDERED: ATORVASTATIN 40 MG TAB PO SCH (09:00)
--- NOTE | 2021-09-13 10:06 | XCELERA ---
[id number]
--- NOTE | 2021-09-13 11:09 | Cardiology Consultation ---
Date of Consultation September 13, 2021 Assessment & Plan (1) Acute ischemic stroke: -essentially resolved following TNKase. -management per Neurology and Medicine team. (2) Atrial fibrillation, new onset: -most likely etiology of his acute event. -agree with initiating and novel anticoagulant when okay with Neurology. -rate adequately controlled on metoprolol tartrate. (3) Elevated troponin: -minor elevation related to the acute event in the face of severe LVH. -no further cardiac evaluation necessary. (4) Cardiomyopathy: -fortunately, his ejection fraction normalized on medical management. -amyloidosis has been essentially ruled out. -other etiologies include noncompaction and Fabry's disease. (5) HTN (hypertension): -adequate control on current regimen. History of Present Illness Attending Physician: Sriram Segovia MD History of Present Illness Mr. Brice is a 51-year-old male admitted yesterday as a stroke alert. The patient was found to be in atrial fibrillation, and therefore, this consultation was ordered. Of note, the patient is followed by Dr. Zamora in the outpatient setting. The patient was in his usual state of health until approximately 11:15 a.m. yesterday. He was noted to have slurred speech. He was found 45 minutes later on the floor and was unable to speak. He also demonstrated weakness of his right upper lower extremities. He was brought to the emergency room for further care. On arrival here, patient was noted to be in atrial fibrillation with a borderline ventricular response. He was given TNKase via the telemedicine recommendations from [facility]. His symptoms improved dramatically. The patient has never been found in atrial fibrillation previously. He was admitted here in May 2019 with a left parietal lobe CVA a. No atrial fibrillation was identified at that time. The patient also carries a history of a transient cardiomyopathy. Initially, it was felt that he may have amyloidosis by the findings on his echocardiogram back in May 2019. However, he underwent a fat pad biopsy which was negative. Immunofixation was also negative. He was seen by wharf labourer who did not feel the patient had amyloidosis. He was seen by Dr. Zamora on May 27, 2021. 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 Currently, patient is resting comfortably in bed without complaints. Past medical and surgical history 1. Transient cardiomyopathy-see above 2. Hypertension 3. Severe LVH 4. Yjta-kh-ngicceen mitral regurgitation 5. Hypercholesterolemia 6. Diabetes mellitus 7. Esophageal stricture 8. History of CVA-May 2019, see above 9. S/p finger tendon repair Social history Inmate at [facility] Quit tobacco use in 2016, 10 pack year history No alcohol No recreational drugs Family history Brother had an PR in his 40s Review of systems A 10 review systems was undertaken and negative except that described above. Allergies Allergy/AdvReac Type Severity Reaction Status Date / Time fish derived Allergy Unknown Verified 09/12/21 13:53 shellfish derived Allergy Unknown Verified 09/12/21 13:53 Home Medications Medication Instructions Recorded Confirmed Type aspirin 81 mg tablet,delayed 81 mg PO QAM #30 tab 06/22/19 09/12/21 Rx release (Ecotrin Low Strength) atorvastatin 40 mg tablet 40 mg PO QAM #30 tab 06/22/19 09/12/21 Rx eplerenone 25 mg tablet 25 mg PO DAILY 01/18/20 09/12/21 History hydrochlorothiazide 25 mg tablet 25 mg PO DAILY 05/27/21 09/12/21 History lactulose 10 gram/15 mL oral 15 ml PO BID ml 05/27/21 09/12/21 History solution metoprolol tartrate 100 mg tablet 100 mg PO BID tab 05/27/21 09/12/21 History glipizide 5 mg tablet 5 mg PO BID 09/12/21 09/12/21 History losartan 50 mg tablet 50 mg PO DAILY 09/12/21 09/12/21 History olopatadine 0.1 % eye drops 1 drp OPB BID 09/12/21 09/12/21 History Patient History Medical History (Updated 09/12/21 @ 15:46 by Melecio Grajeda MD) Anxiety Chest pain Eczema History of alcohol abuse History of drug abuse History of tobacco use HTN (hypertension) Surgical History Status post tendon repair history left finger tendon repair Family History Brother Coronary heart disease PR in early 40's Stroke, Onset Age: 42 Father Stroke Stomach cancer Mother Stroke Uncle Stomach cancer Social History Smoking Status: Former smoker Tobacco Type: Cigarettes Second Hand Exposure: Yes; Hx Alcohol Use: No Hx Substance Use: Yes Last Used Substance Other:: acid and mushrooms Substance Use Type Other:: Quit 2012 - Prior cocaine, acid, mushrooms, marijuana Preferred Language: Frisian Communication Ability: Effective Male Infertility Specialist Required: No Beliefs That Will Affect Care: None Current Living Situation: Other Current Living Situation Comment: [facility] Feels Safe at Home: Yes Assistive Devices: Denture - Upper and Glasses Physical Exam Physical Exam: In general is well-developed well nourished black male in no acute distress. HEENT exam is negative. Neck is supple with full carotid up strokes. No carotid bruits. Jugular is pressure is flat at 90. There is no thyromegaly. Cardiovascular exam reveals an irregular irregular rhythm with distant heart sounds. No obvious murmurs. Lungs are clear without rales, rhonchi or wheezes. Abdomen is soft without bruits. Extremities reveal intact radial artery and posterior tibial pulses bilaterally. There is no peripheral edema. Results & Data ([facility]) Vital Signs (Past 12 Hours) Vital Signs Temp Pulse Pulse Resp BP BP Pulse Ox 09/13/21 08:47 37.2 C 99 H 22 134/98 97 09/13/21 07:45 77 16 117/89 95 09/13/21 06:45 37.0 C 78 16 107/85 97 09/13/21 05:47 68 18 122/75 98 09/13/21 05:00 81 22 115/91 97 09/13/21 04:47 69 18 115/91 98 09/13/21 04:30 78 18 117/85 98 09/13/21 04:00 81 20 138/87 98 09/13/21 03:47 36.5 C 71 18 108/88 97 09/13/21 03:42 77 17 106/88 96 09/13/21 03:30 85 15 122/84 94 09/13/21 03:00 91 H 22 121/92 98 09/13/21 02:47 18 121/92 99 09/13/21 02:30 84 17 113/89 98 09/13/21 02:00 82 21 125/89 97 09/13/21 01:47 36.6 C 87 18 125/88 98 09/13/21 01:30 81 13 125/88 97 09/13/21 01:00 83 18 107/79 95 09/13/21 00:47 36.6 C 74 18 107/79 96 09/13/21 00:05 84 20 132/87 97 09/13/21 00:00 94 H 21 127/99 98 09/12/21 23:47 36.8 C 80 18 132/87 97 09/12/21 23:43 78 09/12/21 23:41 126/91 99 09/12/21 23:30 94 H 141/96 H 97 09/12/21 23:00 90 129/96 97 Laboratory Results CBC notes hemoglobin 13.5, hematocrit 40.2, white count 6.7, and platelet count 185 1000. Electrolytes note a sodium of 135, potassium 3.6, chloride 101, bicarb 27, BUN 17, creatinine 1.11, glucose of 112. Magnesium is normal at 1.8. High sensitivity troponin is mildly elevated 23.9. Diagnostic Findings EKG notes atrial fibrillation with a controlled ventricular response. There is a complete right bundle branch block. Echocardiogram notes normal systolic function with ejection fraction 50%. There was severe LVH with prominent trabeculation. Bubble study is negative. Left atrium severely dilated. Chest x-ray notes cardiomegaly but no failure. 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 MRI of the brain noted an acute left- sided anterior cerebral artery stroke. PG Care Time/CCT Total # of Minutes Spent Total Time Spent with Patient: Total time spent is greater than 50% in coordination of care (as documented) at patient's floor/unit and/or counseling patient: Coding Level of Care Code 01252 Inpt Consult Level 4 Diagnoses Acute ischemic stroke I63.9 Atrial fibrillation, new onset I48.91 Elevated troponin R79.89 Cardiomyopathy I42.9 HTN (hypertension) I10 Hypertension type: essential hypertension (1) HTN (hypertension) Hypertension type: essential hypertension Qualified Code(s): I10 - Essential (primary) hypertension
--- NOTE | 2021-09-13 11:32 | Electrocardiogram Report ---
Test Reason : Blood Pressure : / mmHG Vent. Rate : 092 BPM Atrial Rate : 100 BPM P-R Int : 000 ms QRS Dur : 136 ms QT Int : 404 ms P-R-T Axes : 000 044 -09 degrees QTc Int : 499 ms Poor data quality, interpretation may be adversely affected Atrial fibrillation with premature ventricular or aberrantly conducted complexes Right bundle branch block Left ventricular hypertrophy with repolarization abnormality Abnormal ECG When compared with ECG of 19-JAN-2020 06:31, Atrial fibrillation has replaced Sinus rhythm QRS duration has increased T wave inversion less evident in Lateral leads Confirmed by Dimas Kirby ([id number]) on 09/13/2021 11:31:52 AM Referred By: Jennifer DELGADO Confirmed By:Dimas Kirby
--- NOTE | 2021-09-13 11:32 | Electrocardiogram Report ---
Test Reason : Blood Pressure : / mmHG Vent. Rate : 092 BPM Atrial Rate : 468 BPM P-R Int : 000 ms QRS Dur : 134 ms QT Int : 384 ms P-R-T Axes : 000 030 -63 degrees QTc Int : 474 ms Atrial fibrillation with premature ventricular or aberrantly conducted complexes Right bundle branch block Left ventricular hypertrophy with repolarization abnormality Abnormal ECG When compared with ECG of 12-SEP-2021 13:16, (unconfirmed) No significant change was found Confirmed by Dimas Kirby ([id number]) on 09/13/2021 11:32:18 AM Referred By: Jennifer SCI Confirmed By:Dimas Kirby
--- NOTE | 2021-09-13 13:57 | CT Scan Report ---
CT OF THE HEAD WITHOUT CONTRAST CLINICAL HISTORY: 24 hour post tPA for stroke- eval for hemorrhage COMPARISON STUDY: Head CT, CTA of the head and MRI the brain September 12, 2021. CT DOSE: 537.48 mGy.cm TECHNIQUE: Helical axial images of the head were obtained without IV contrast. Automated exposure con trol was utilized for the study. A dose lowering technique was utilized adhering to the principles o f ALARA. FINDINGS: No acute intracranial hemorrhage, midline shift or mass effect is present. A small hypodens ity with loss of hernandez-white differentiation within the superomedial left frontal lobe corresponds to the acute infarct shown on MRI of September 12, 2021. There is no evidence for hemorrhagic conversion. Th ere is no mass effect. Ventricular system is normal. Basilar cisterns are patent. There are no extra- axial collections. Visualized portions of the sinuses and mastoid air cells are clear. Minimal gas wi thin the cavernous sinus is likely related to IV insertion. IMPRESSION: Small acute left anterior cerebral artery distribution infarct, as shown on MRI of September 12, 2021. No acute hemorrhage. No mass effect. ACT 112: Negative or not required by law. Electronically signed by: Tip Fleming M.D. 09/13/2021 1:55 PM
[2021-09-13 14:18] LABS: INR 1.1 (0.9-1.1); Prothrombin Time 11.7 Seconds (9.0-12.0)
[2021-09-13 14:49] LABS: BUN Creatinine Ratio 12.5 (10-20); Calcium 9.5 mg/dl (8.5-10.1); Chol HDL Ratio 4.1 (0-5); Creatinine Clr Calc Pharmacy 111.7 ml/min; Est GFR (African American) 97.3 ml/min; Est GFR (Non-African American) 83.9 ml/min; Phosphorus 3.1 mg/dl (2.5-4.9); Potassium 3.2 mmol/L (3.5-5.1)
--- NOTE | 2021-09-13 15:23 | Hospitalist Progress Note ---
Date of Service September 13, 2021 Assessment & Plan (1) Acute ischemic stroke: Plan: Patient presented with stroke symptoms of right facial droop, right sided weakness, inability to ambulate, and aphasia - Deemed thrombolytic candidate with last known well at 11:15- thrombolytic administered at 1343/22 - Risk factors: HTN, new onset afib, previous smoker, HLD, and previous CVA - CTA head with chronic DULCE MARIA occlusion -Resume aspirin - BP goal <185/105 -Resume aspirin -LDL of 70 increased atorvastatin to 80 mg daily - HGB A1C pending - Hold PENNY at this time -No evidence of [id number]-[id number] shunt - stroke education - provide by discharge - PT/OT consultation evaluate for rehab needs - (2) Atrial fibrillation, new onset: Plan: Currently rate controlled, with unkown onset of of Afib - He is on Metoprolol tartrate 100mg PO BID - IVP Metoprolol for any rate sustained > 100 - Keep K >4.0 and Mag ~ 2.0 - ECHO as above - CHADSVASC- 3- transition to anticoagulation Lovenox/VKA or DOAC following 24 h ours post tNKASE would be appropriate (3) History of CVA (cerebrovascular accident): Plan: HX of left superior parietal lobe- with asa as continued therapy - May have followed with neurology Gesinger Dr. 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 Review of Systems Review of Systems: REVIEW OF SYSTEMS: Constitutional: No fever, sweats or chills Eyes: No diplopia, no worsening or blurred vision ENT: normal hearing, no trouble swallowing Respiratory: No cough, sputum, dyspnea at rest or on exertion Cardiovascular: No chest pain, tightness or palpitations Abdomen: No pain, nausea, vomiting, diarrhea or constipation Musculoskeletal: No joint pain, calf pain, swelling Neurologic: (+) right sided weakness, and facial droop, with aphasia, No numbness/tingling, or balance problems Psychiatric: No anxiety or depression Skin: No rash or itch Physical Exam Physical Exam: In general is well-developed well nourished black male in no acute distress. HEENT exam is negative. Neck is supple with full carotid upstrokes. No carotid bruits. Jugular is pressure is flat at 90. There is no thyromegaly. Cardiovascular exam reveals an irregular irregular rhythm with distant heart sounds. No obvious murmurs. Lungs are clear without rales, rhonchi or wheezes. Abdomen is soft without bruits. Extremities reveal intact radial artery and posterior tibial pulses bilaterally. There is no peripheral edema. Constitutional: well developed and well nourished; no acute distress Eyes: normal visual reynoso by confrontation, PERRL, normal accommodation and EOM intact bilaterally; no fundoscopic abnormality, no nystagmus and no papilledema Cardiovascular: Vessels: normal carotid upstroke; no carotid bruit Results & Data Results & Data ([facility]) Vital Signs (Past 12 Hours) Vital Signs Temp Pulse Pulse Resp BP BP Pulse Ox 09/13/21 11:47 84 18 107/89 95 09/13/21 11:00 80 22 127/89 95 09/13/21 10:47 81 22 127/89 95 09/13/21 10:30 74 16 115/90 95 09/13/21 10:00 84 13 126/86 96 09/13/21 09:47 36.8 C 79 16 115/90 95 09/13/21 09:30 82 20 121/97 97 09/13/21 09:00 87 19 133/98 96 09/13/21 08:47 37.2 C 99 H 22 134/98 97 09/13/21 08:30 88 24 134/98 98 09/13/21 08:00 81 21 141/85 H 94 09/13/21 07:45 77 16 117/89 95 09/13/21 07:30 73 16 117/89 95 09/13/21 07:00 80 20 134/94 96 09/13/21 06:45 37.0 C 78 16 107/85 97 09/13/21 05:47 68 18 122/75 98 09/13/21 05:00 81 22 115/91 97 09/13/21 04:47 69 18 115/91 98 09/13/21 04:30 78 18 117/85 98 09/13/21 04:00 81 20 138/87 98 09/13/21 03:47 36.5 C 71 18 108/88 97 09/13/21 03:42 77 17 106/88 96 09/13/21 03:30 85 15 122/84 94 PG Care Time/CCT Total # of Minutes Spent Total Time Spent with Patient: Total time spent is greater than 50% in coordination of care (as documented) at patient's floor/unit and/or counseling patient: Coding Level of Care Code 40422 Subseq Hosp Care Lvl 2 Diagnoses Acute ischemic stroke I63.9 Atrial fibrillation, new onset I48.91 History of CVA (cerebrovascular accident) Z86.73 Elevated troponin R79.89 Cardiomyopathy I42.9 Amyloid heart muscle disease E85.4; I43 HTN (hypertension) I10 Hypertension type: essential hypertension (1) HTN (hypertension) Hypertension type: essential hypertension Qualified Code(s): I10 - Essential (primary) hypertension
[2021-09-13 15:33] LABS: Estimated Average Glucose 157 mg/dl; Hemoglobin A1C 7.1 % (4.5-5.6)
[2021-09-13 15:37] LABS: Basophils # (auto) 0.02 K/uL (0-0.2); Basophils % (auto) 0.3 %; Eosinophils # (auto) 0.08 K/uL (0-0.5); Eosinophils % (auto) 1.2 %; Hematocrit (blood only) 42.3 % (42-52); Hemoglobin 14.5 g/dL (14.0-18.0); Immature Granulocytes # (auto) 0.01 K/uL (0.00-0.02); Immature Granulocytes % (auto) 0.1 %; Lymphocytes # (auto) 2.41 K/uL (1.2-3.4); Lymphocytes % (auto) 34.7 %; Mean Corpuscular Hemoglobin 29.5 pg (25-34); Mean Corpuscular Hgb Conc 34.3 g/dL (32-36); Mean Corpuscular Volume 86.2 fL (80-100); Mean Platelet Volume 11.4 fL (7.4-10.4); Monocytes # (auto) 0.93 K/uL (0.11-0.59); Monocytes % (auto) 13.4 %; Neutrophils % (auto) 50.3 %; Platelet Count 209 K/uL (130-400); RDW Coefficient of Variation 14.8 % (11.5-14.5); RDW Standard Deviation 46.5 fL (36.4-46.3); Red Blood Count 4.91 M/uL (4.7-6.1); White Blood Count 6.95 K/uL (4.8-10.8)
[2021-09-13] MEDS: MAGNESIUM OXIDE 400 MG TAB PO SCH ×2 (15:55→20:02)
[2021-09-13] MEDS: POTASSIUM CHLORIDE CRTAB 20 MEQ TABCR PO SCH ×2 (15:55→20:02)
[2021-09-13] MEDS: ICU ELECTROLYTE REPLACEMENT PROTOCOL SCH (16:57)
[2021-09-13] MEDS: ASPIRIN 81 MG CHEW PO SCH (16:58)
[2021-09-14] MEDS: ICU ELECTROLYTE REPLACEMENT PROTOCOL SCH (05:22)
[2021-09-14] MEDS: FAMOTIDINE 20 MG in SYRINGE 3 ML IV SCH (05:54)
[2021-09-14 07:31] LABS: Basophils # (auto) 0.01 K/uL (0-0.2); Basophils % (auto) 0.1 %; Eosinophils # (auto) 0.11 K/uL (0-0.5); Eosinophils % (auto) 1.3 %; Hematocrit (blood only) 40.7 % (42-52); Hemoglobin 13.6 g/dL (14.0-18.0); Immature Granulocytes # (auto) 0.02 K/uL (0.00-0.02); Immature Granulocytes % (auto) 0.2 %; Lymphocytes # (auto) 2.33 K/uL (1.2-3.4); Lymphocytes % (auto) 27.8 %; Mean Corpuscular Hemoglobin 29.3 pg (25-34); Mean Corpuscular Hgb Conc 33.4 g/dL (32-36); Mean Corpuscular Volume 87.7 fL (80-100); Mean Platelet Volume 10.9 fL (7.4-10.4); Monocytes # (auto) 1.14 K/uL (0.11-0.59); Monocytes % (auto) 13.6 %; Neutrophils # (auto) 4.76 K/uL (1.4-6.5); Platelet Count 199 K/uL (130-400); RDW Coefficient of Variation 14.8 % (11.5-14.5); RDW Standard Deviation 47.9 fL (36.4-46.3); Red Blood Count 4.64 M/uL (4.7-6.1); White Blood Count 8.37 K/uL (4.8-10.8)
[2021-09-14 07:49] LABS: INR 1.1 (0.9-1.1)
[2021-09-14 07:59] LABS: BUN Creatinine Ratio 15.8 (10-20); Calcium 9.1 mg/dl (8.5-10.1); Est GFR (African American) 100.8 ml/min; Est GFR (Non-African American) 86.9 ml/min; Phosphorus 2.5 mg/dl (2.5-4.9); Potassium 4.1 mmol/L (3.5-5.1)
[2021-09-14] MEDS: ASPIRIN 81 MG CHEW PO SCH (08:41)
[2021-09-14] MEDS: METOPROLOL TARTRATE 100 MG TAB PO SCH (08:42)
[2021-09-14] MEDS ORDERED: APIXABAN 2.5 MG TAB PO SCH (09:00)
[2021-09-14] MEDS ORDERED: ATORVASTATIN 40 MG TAB PO SCH (09:00)
--- NOTE | 2021-09-14 10:39 | Cardiology Progress Note ---
Date of Service September 14, 2021 Assessment & Plan (1) Acute ischemic stroke: Plan: -deficit resolved following TNKase. -management per Neurology and Medicine team. (2) Atrial fibrillation, new onset: Plan: -most likely etiology of acute event. -agree with Eliquis and aspirin. -rate adequately controlled on metoprolol tartrate. (3) Elevated troponin: Plan: -minor elevation related to the acute event in the face of severe LVH. -no further cardiac evaluation necessary. (4) Cardiomyopathy: Plan: -fortunately, his ejection fraction normalized on medical management. -amyloidosis has been ruled out. -other etiologies include noncompaction and Fabry's disease. (5) HTN (hypertension): Plan: -adequate control on current regimen. Admission and Anticipated Discharge Date Admission Date: September 12, 2021 Subjective The patient is resting comfortably in bed without complaints of chest pain or dyspnea. Does note palpitations. Physical Exam Physical Exam: In general is well-developed well nourished black male in no acute distress. HEENT exam is negative. Neck is supple with full carotid upstrokes. No carotid bruits. Jugular is pressure is flat at 90. There is no thyromegaly. Cardiovascular exam reveals an irregular irregular rhythm with distant heart sounds. No obvious murmurs. Lungs are clear without rales, rhonchi or wheezes. Abdomen is soft without bruits. Extremities reveal intact radial artery and posterior tibial pulses bilaterally. There is no peripheral edema. Results & Data ([facility]) Vital Signs (Past 12 Hours) Vital Signs Temp Pulse Pulse Resp BP Pulse Ox 09/14/21 08:00 104 H 09/14/21 06:58 36.5 C 89 20 148/83 H 96 09/14/21 03:15 36.6 C 84 20 122/85 92 09/13/21 23:49 36.7 C 79 20 108/71 97 Diagnostic Findings engine monitor notes atrial fibrillation with a ventricular response of 80- 100 bpm. PG Care Time/CCT Total # of Minutes Spent Total Time Spent with Patient: Total time spent is greater than 50% in coordination of care (as documented) at patient's floor/unit and/or counseling patient: Coding Level of Care Code 48826 Subseq Hosp Care Lvl 3 Diagnoses Acute ischemic stroke I63.9 Atrial fibrillation, new onset I48.91 Elevated troponin R79.89 Cardiomyopathy I42.9 HTN (hypertension) I10 Hypertension type: essential hypertension (1) HTN (hypertension) Hypertension type: essential hypertension Qualified Code(s): I10 - Essential (primary) hypertension
[2021-09-14 11:15] VITALS: BP 113/83; TEMP 98.6; O2SAT 98
[2021-09-14] MEDS ORDERED: STROKE PATIENT DISCHARGE STA (13:53)
[2021-09-14 15:52] VITALS: PULSE 89
[2021-09-14] MEDS ORDERED: FAMOTIDINE 20 MG TAB PO SCH (18:00)
--- NOTE | 2021-09-14 18:29 | Discharge Summary ---
Date of Service September 14, 2021 Admission HPI Per Admitting Provider 51 YOM with medical history of: dysphagia, esophagitis, CVA in 2020 without tPA, anxiety, HTN, HLD, Possible amyloid- negative fat pad biopsy, LVH, NICM. Patient presents to the EMD today via EMS from [facility] for new onset of weakness of his right side, unable to ambulate and aphasia. The patient reportedly was seen around 11:15 and when checked on again was noted to have the above symptoms. In the EMD the patient arrived as a stroke alert. He had telestroke with [facility], CTA of the head and neck and CT of the head completed, revealing chronic DULCE MARIA occlusion. He was deemed a thrombolytic candidate and consented to tPA per the EMD note. The patient had routine labs performed and TnKASE was administered ~1340. The hospitalist service was then consulted for admission. Prior to evaluation the patient appeared to become aphasiac again. He had a repeat Head CT performed which was interpreted by radiology as no acute change or bleed but noting remaining contrast. Patient was evaluated and after further prompting he was able to speak and participate in the exam. He is exhibiting some expressive aphasia he remains with right sided weakness right lower leg worse than right upper arm. He endorses that he feels better than he did this morning. Also endorses that he had a headache this morning at some point but was unable to elaborate, he also does not recall a history of Afib and is noted to be in Afib on admission. Patient will be admitted to the ICU for continued neurological exam, BP control if needed. Will add on Type and screen and patient passed his dysphagia screening post thrombolytic. COVID test on admission: NEGATIVE Principal Diagnosis Stroke/new onset A. fib Discharge Exam Constitutional well developed and well nourished; no acute distress Eyes normal visual reynoso by confrontation, PERRL, normal accommodation and EOM intact bilaterally; no fundoscopic abnormality, no nystagmus and no papilledema Cardiovascular Vessels: normal carotid upstroke; no carotid bruit Discharge Data Allergies Allergy/AdvReac Type Severity Reaction Status Date / Time fish derived Allergy Unknown Verified 09/12/21 13:53 shellfish derived Allergy Unknown Verified 09/12/21 13:53 Consultations 09/12/21 13:57 ED Decision to Admit Stat 09/12/21 17:19 Consult Cardiology Routine Consult Psychopaedic Nurse Routine Consult Neurology Routine Ordered Studies 09/12/21 12:42 CT angio head w con Stat CT angio neck with con Stat CT head/brain wo con Stat 09/12/21 14:16 CT head/brain wo con Stat 09/12/21 17:19 MR brain wo con Routine 09/13/21 13:30 CT head/brain wo con Routine Hospital Course (1) Acute ischemic stroke: Patient presented with stroke symptoms of right facial droop, right sided weakness, inability to ambulate, and aphasia - Deemed thrombolytic candidate with last known well at 11:15- thrombolytic administered at 1343/22 - Risk factors: HTN, new onset afib, previous smoker, HLD, and previous CVA - CTA head with chronic DULCE MARIA occlusion -LDL of 70 increased atorvastatin to 80 mg daily - HGB A1C 7.1 --No evidence of [id number] shunt on echo with bubble study - stroke education - provide by discharge -New onset A. fib Started on Eliquis Currently rate controlled -Due to hypotension overall BP meds discontinued except for metoprolol -Echo reviewed ejection fraction has improved (2) Atrial fibrillation, new onset: Currently rate controlled, with unkown onset of of Afib - He is on Metoprolol tartrate 100mg PO BID - IVP Metoprolol for any rate sustained > 100 - Keep K >4.0 and Mag ~ 2.0 - ECHO as above - CHADSVASC- 3-transition to Eliquis when follow-up CT did not show evidence of bleeding Needs to follow-up with cardiology in couple of months for possible cardioversion (3) History of CVA (cerebrovascular accident): HX of left superior parietal lobe- with asa as continued therapy - May have followed with neurology Gesinger Dr. Dejesus following last CVA (4) Elevated troponin: Possibly secondary to stroke - no complaints of chest pain - no ECG changes other than atrial fibrilation - likely related to underlying heart disease and elevated BP on arrival (5) Cardiomyopathy: Previously with EF noted in 2019 of 35-40% and repeat done in November with EF 50-55% on BB/PENNY/diuretic therapy - Continue BB -Discontinued PENNY inhibitor and hydrocortisone due to hypotension I would defer to primary care doctor if would like to resume them a follow-up visit - ECHO showed preserved ejection fraction,, severe left ventricular hypertrophy and severe left atrium dilated (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- patient therfore had fat pad biopsy performed in 2019 - This was negative - see 06/21/19 pathology report - has not had any further heart biopsy or follow up that is availble for review (7) HTN (hypertension): As above Total Time Total Time Spent Total Time Spent (In Minutes): 45 Discharge Plan Discharge Items [facility] Reason For Visit: RIGHT SIDED WEAKNESS & APHASIA, POST tPA FOR CVA Discharge Diagnosis: Stroke, Atrial fibrillation Condition on Discharge: Good Health Concerns: The patient is diagnosed with atrial fibrillation, patient has risk of thromboembolic event, he was initiated on apixaban and aspirin, Monitor for bleeding Activity: Resume your previous activity Lifting: Gradually increase as tolerated Bathing: No limitations Driving/Machine Use: No limitations Weightbearing: Full weightbearing Non-emergency contact: Primary Care Provider Call non-emergency contact if: you have any medication questions Follow-up/Referrals: Nagi Jimenez MD [Physician] - (stroke new onset Afib) John Zamora MD [Physician] - (stroke /new onset fib) Jennifer DELGADO [Primary Care Provider] - Diet: Carb Consistent or DM2 Addtl Attending Provider Instructions: You are diagnosed with atrial fibrillation, Therefore, you are started on blood thinner,Consequently you are high risk of bleeding please avoid any activities that can increase your risk of bleeding Pending Studies at Discharge: No Stand-Alone Forms: My [facility] Skilled Items Patient informed of condition?: Yes Discharge Level of Care: Other Communicable Disease: No Discharge Prognosis: Stable Lines: None Urinary Catheter: No Medications and DC Order Prescriptions: New apixaban 5 mg tablet 5 mg PO BID Qty: 90 RF: 0 metformin 500 mg tablet 500 mg PO BID Qty: 60 RF: 0 Continued metoprolol tartrate 100 mg tablet 100 mg PO BID RF: 0 aspirin [Ecotrin Low Strength] 81 mg Tablet,Delayed Release (Dr/Ec) 81 mg PO QAM Qty: 30 RF: 2 olopatadine 0.1 % Drops 1 drp OPB BID RF: 0 glipizide 5 mg Tablet 5 mg PO BID RF: 0 Changed atorvastatin 40 mg Tablet 80 mg PO QAM Qty: 30 RF: 2 Discontinued hydrochlorothiazide 25 mg tablet 25 mg PO DAILY RF: 0 lactulose 10 gram/15 mL solution 15 ml PO BID RF: 0 eplerenone 25 mg Tablet 25 mg PO DAILY RF: 0 losartan 50 mg Tablet 50 mg PO DAILY RF: 0 Discharge Orders: Discharge Order (Routine); Ordered 09/14/21 Ordered By: Sriram Segovia Admission Data Admit Date/Time: 09/12/21 14:55 Attending Provider: Sriram Segovia Admit Provider: Roshan Payton Primary Care Provider: Jennifer DELGADO Other Providers: Roshan Payton ; John Zamora ; Melecio Grajeda ; Nagi Jimenez Other Interventions: Discharge Summary Assessment (RN) Last Done: 09/14/21 15:39 Coding Level of Care Code D/C DAY MANAGEMENT >30 MINS Diagnoses Acute ischemic stroke I63.9 Atrial fibrillation, new onset I48.91 History of CVA (cerebrovascular accident) Z86.73 Elevated troponin R79.89 Cardiomyopathy I42.9 Amyloid heart muscle disease E85.4; I43 HTN (hypertension) I10 Hypertension type: essential hypertension
== END 2021-09-14 16:19 | DRG 61 ==
LOC: ED 12:46 → 1E 14:55 → SUATTDRO 14:55 → 1E 16:45 → 2W 09-13 22:06

== ENCOUNTER 2021-09-16 07:57 | Observation (INO) ==
[2021-09-16] MEDS ORDERED: OPTIRAY 320 125ml IV ONE (08:09)
--- NOTE | 2021-09-16 08:12 | Emergency Department Note ---
History of Present Illness General Chief complaint: Stroke Alert Stated complaint: STROKE ALERT Time Seen by Provider: 09/16/21 08:01 Source: patient, EMS, RN notes reviewed and old records reviewed Mode of arrival: ambulatory Limitations: no limitations History of Present Illness This patient is a 51-year-old male who was brought in by EMS after having right- sided weakness and aphasia. Apparently started at 630. They checked a blood s ugar is 107 he was in A. fib which was in the low 1 teens he is normotensive. He was just discharged from the hospital and was actually did receive thrombolytics with TNKase on the with almost complete resolution of his symptoms according to neurology note. 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 No trauma. The patient's says his right side is better than it was this morning and his speech is also better he feels like he is doing better than he was. He also tells me when he left the hospital he still was not 100% back to normal and had trouble walking secondary to weakness. Home Medications Medication Instructions Recorded Confirmed Type aspirin 81 mg tablet,delayed 81 mg PO QAM #30 tab 06/22/19 09/16/21 Rx release (Ecotrin Low Strength) metoprolol tartrate 100 mg tablet 100 mg PO BID tab 05/27/21 09/16/21 History glipizide 5 mg tablet 5 mg PO BID 09/12/21 09/16/21 History olopatadine 0.1 % eye drops 1 drp OPB BID 09/12/21 09/16/21 History apixaban 5 mg tablet 5 mg PO BID #90 tab 09/14/21 09/16/21 Rx atorvastatin 40 mg tablet 80 mg PO QAM #30 tab 09/14/21 09/16/21 Rx metformin 500 mg tablet 500 mg PO BID #60 tab 09/14/21 09/16/21 Rx losartan 50 mg tablet 50 mg PO QAM 09/16/21 09/16/21 History Allergies Allergy/AdvReac Type Severity Reaction Status Date / Time fish derived Allergy Unknown Verified 09/16/21 08:17 shellfish derived Allergy Unknown Verified 09/16/21 08:17 Past Med/Surg History Medical History Anxiety Chest pain Eczema History of alcohol abuse History of drug abuse History of tobacco use HTN (hypertension) Surgical History Status post tendon repair history left finger tendon repair Family History Brother Coronary heart disease [place] in early 40's Stroke, Onset Age: 42 Father Stroke Stomach cancer Mother Stroke Uncle Stomach cancer Social History Smoking Status: Never smoker Tobacco Type: Cigarettes Second Hand Exposure: Yes; Hx Alcohol Use: No Hx Substance Use: No Preferred Language: Turkmen Communication Ability: Effective Health Assessment And Treatment Teacher Required: No Beliefs That Will Affect Care: None Current Living Situation: Other Current Living Situation Comment: inmate Other Information That Helps Us Care for You: No Feels Safe at Home: Yes Safety Concerns: Feels Safe At This Time Assistive Devices: None Review of Systems A total of 10 systems reviewed and were otherwise negative Physical Exam Vital Signs Vital Signs - 24 hr 09/16/21 07:52 09/16/21 07:56 09/16/21 08:17 Temperature 36.5 C 36.8 C Temperature Source Temporal Artery Scan Oral Pulse Rate 124 H 127 H Pulse Rate [Left Finger] 93 H Pulse Rate from SpO2 Sensor 104 H Pulse Rhythm Irregular Respiratory Rate 16 16 21 Respiratory Effort / Characteristics Non-Labored Non-Labored Spontaneous Respiratory Depth Normal Normal Respiratory Pattern Regular Blood Pressure 131/99 Blood Pressure [Right Arm] 136/94 Blood Pressure Mean 109 Blood Pressure Mean [Right Arm] 108 Blood Pressure Position [Right Arm] Lying Pulse Oximetry 98 98 96 Oxygen Delivery Method Room Air Room Air Sepsis Recent Fever Within 48 Hours No Sepsis New/Unexplained Change in Mental Status N/A Sepsis Action Taken by Nursing No Action Required 09/16/21 08:20 09/16/21 08:30 09/16/21 08:42 Temperature Temperature Source Pulse Rate 109 H 118 H 112 H Pulse Rate [Left Finger] Pulse Rate from SpO2 Sensor 98 H 102 H 92 H Pulse Rhythm Respiratory Rate 18 15 18 Respiratory Effort / Characteristics Respiratory Depth Respiratory Pattern Blood Pressure 131/99 148/100 H 150/85 H Blood Pressure [Right Arm] Blood Pressure Mean 109 116 106 Blood Pressure Mean [Right Arm] Blood Pressure Position [Right Arm] Pulse Oximetry 98 98 91 Oxygen Delivery Method Sepsis Recent Fever Within 48 Hours Sepsis New/Unexplained Change in Mental Status Sepsis Action Taken by Nursing 09/16/21 08:45 09/16/21 09:00 Temperature Temperature Source Pulse Rate 108 H 102 H Pulse Rate [Left Finger] Pulse Rate from SpO2 Sensor 95 H 83 Pulse Rhythm Respiratory Rate 16 12 Respiratory Effort / Characteristics Respiratory Depth Respiratory Pattern Blood Pressure 140/87 132/85 Blood Pressure [Right Arm] Blood Pressure Mean 104 100 Blood Pressure Mean [Right Arm] Blood Pressure Position [Right Arm] Pulse Oximetry 98 98 Oxygen Delivery Method Sepsis Recent Fever Within 48 Hours Sepsis New/Unexplained Change in Mental Status Sepsis Action Taken by Nursing General: Well developed well nourished male who appears in no acute distress, breathing comfortably on room air. Normal speech nonslurred. He does talk slow but answers and names objects appropriately HEENT: Normal cephalic atraumatic. Pupils are equal round and reactive to light. Extraocular movements are intact. Oropharynx is pink with moist mucous membranes. No swelling of the mouth lips or tongue. Neck: Supple with a midline trachea. No meningeal signs or stiffness, no JVD or bruits. No Stridor. Chest: Clear to auscultation bilaterally. No wheezes or rhonchi. No increased work of breathing. Heart: Irregularly irregular rate and rhythm mildly tachycardic in the 110s. Consistent with A. fib/flutter in the monitor Abdomen: Soft nontender, nondistended without rebound guarding or rigidity. Extremities: No cyanosis clubbing or edema. No calf tenderness or assymetry Spine/Back. Non tender to palpation. No CVA tenderness Skin: Good turgor without rashes. Neurologic exam: Cranial nerves two through 12 are intact. Does appear mildly weak on the right leg and arm compared to the left however he says he is improved significantly. Course Administered Medications Lactated Ringer's (Lr) 1,000 mls @ 125 mls/hr IV .Q8H [facility] Stop: 09/16/21 17:59 Last Admin: 09/16/21 10:08 Dose: 125 mls/hr Documented by: [id number] Discontinued Medications Ioversol (Optiray 320 125ml) 120 ml IV ONCE ONE Stop: 09/16/21 08:10 Last Admin: 09/16/21 08:09 Dose: 120 ml Documented by: [id number] Metoprolol Tartrate (Metoprolol Tartrate 25 Mg Tab) 25 mg PO ONE ONE Stop: 09/16/21 10:16 Last Admin: 09/16/21 11:47 Dose: Not Given Documented by: [id number] Metoprolol Tartrate (Metoprolol Tartrate 25 Mg Tab) 25 mg PO ONE ONE Stop: 09/16/21 13:31 Last Admin: 09/16/21 14:09 Dose: 25 mg Documented by: [id number] Medical Decision Making Differential Diagnosis Stroke, intracranial hemorrhage, electrolyte or metabolic abnormality, A. fib, cardiac disease Medical Records Attestation: I reviewed the patient's medical records. Home Medications Current Medication List: was personally reviewed by me Laboratory Data Attestation: I reviewed the patient's lab results. Result diagrams: 09/16/21 08:07 09/16/21 08:07 Lab Results 09/16/21 09/16/21 09/16/21 Range/Units 08:07 08:07 08:07 WBC 5.82 (4.8-10.8) K/uL RBC 4.84 (4.7-6.1) M/uL Hgb 14.1 (14.0-18.0) g/dL Hct 42.5 (42-52) % MCV 87.8 (80-100) fL MCH 29.1 (25-34) pg MCHC 33.2 (32-36) g/dL RDW Std Deviation 47.4 H (36.4-46.3) fL RDW Coeff of Georgette 14.6 H (11.5-14.5) % Plt Count 186 (130-400) K/uL MPV 11.2 H (7.4-10.4) fL Immature Gran % (Auto) 0.2 % Neut % (Auto) 52.2 % Lymph % (Auto) 27.0 % Waldo % (Auto) 19.4 % Eos % (Auto) 1.0 % Baso % (Auto) 0.2 % Neut # (Auto) 3.04 (1.4-6.5) K/uL Lymph # (Auto) 1.57 (1.2-3.4) K/uL Waldo # (Auto) 1.13 H (0.11-0.59) K/uL Eos # (Auto) 0.06 (0-0.5) K/uL Baso # (Auto) 0.01 (0-0.2) K/uL Immature Gran # (Auto) 0.01 (0.00-0.02) K/uL PT 12.5 H (9.0-12.0) Seconds INR 1.2 H (0.9-1.1) APTT 26.9 (21.0-31.0) Seconds PTT Ratio 1.0 Sodium 137 (136-145) mmol/L Potassium 4.1 (3.5-5.1) mmol/L Chloride 102 (98-107) mmol/L Carbon Dioxide 27 (21-32) mmol/L Anion Gap 8 (3-11) BUN 13 (6-23) mg/dl Creatinine 1.09 (0.6-1.4) mg/dl Est Cr Clr Drug Dosing 105.5 ml/min Est GFR ( Amer) 91.9 ml/min Est GFR (Non-Af Amer) 79.3 ml/min BUN/Creatinine Ratio 11.9 (10-20) Glucose 135 H (70-99(Fasting)) mg/dl Calcium 9.4 (8.5-10.1) mg/dl Magnesium 1.9 (1.7-2.4) mg/dl Total Bilirubin 1.1 H (0.2-1.0) mg/dl AST 19 (13-39) U/L ALT 23 (7-52) U/L Alkaline Phosphatase 54 (34-104) U/L Troponin I High Sens 28.1 H (0-20) pg/ml Total Protein 7.7 (6.0-8.3) gm/dl Albumin 4.1 (3.4-5.0) gm/dl Globulin 3.6 (2.5-4.0) gm/dl Albumin/Globulin Ratio 1.1 (0.9-2) Blood Type Antibody Screen 09/16/21 Range/Units 08:19 WBC (4.8-10.8) K/uL RBC (4.7-6.1) M/uL Hgb (14.0-18.0) g/dL Hct (42-52) % MCV (80-100) fL MCH (25-34) pg MCHC (32-36) g/dL RDW Std Deviation (36.4-46.3) fL RDW Coeff of Georgette (11.5-14.5) % Plt Count (130-400) K/uL MPV (7.4-10.4) fL Immature Gran % (Auto) % Neut % (Auto) % Lymph % (Auto) % Waldo % (Auto) % Eos % (Auto) % Baso % (Auto) % Neut # (Auto) (1.4-6.5) K/uL Lymph # (Auto) (1.2-3.4) K/uL Waldo # (Auto) (0.11-0.59) K/uL Eos # (Auto) (0-0.5) K/uL Baso # (Auto) (0-0.2) K/uL Immature Gran # (Auto) (0.00-0.02) K/uL PT (9.0-12.0) Seconds INR (0.9-1.1) APTT (21.0-31.0) Seconds PTT Ratio Sodium (136-145) mmol/L Potassium (3.5-5.1) mmol/L Chloride (98-107) mmol/L Carbon Dioxide (21-32) mmol/L Anion Gap (3-11) BUN (6-23) mg/dl Creatinine (0.6-1.4) mg/dl Est Cr Clr Drug Dosing ml/min Est GFR ( Amer) ml/min Est GFR (Non-Af Amer) ml/min BUN/Creatinine Ratio (10-20) Glucose (70-99(Fasting)) mg/dl Calcium (8.5-10.1) mg/dl Magnesium (1.7-2.4) mg/dl Total Bilirubin (0.2-1.0) mg/dl AST (13-39) U/L ALT (7-52) U/L Alkaline Phosphatase (34-104) U/L Troponin I High Sens (0-20) pg/ml Total Protein (6.0-8.3) gm/dl Albumin (3.4-5.0) gm/dl Globulin (2.5-4.0) gm/dl Albumin/Globulin Ratio (0.9-2) Blood Type O Positive Antibody Screen NEGATIVE Imaging Data Attestation: I personally reviewed and interpreted this imaging study as follows: My Impression: Chest x-rayno acute infiltrate, failure, pneumothorax seen. CAT scan of his head, there was no acute hemorrhage seen upon my initial evaluation there is a subacute infarct in the left frontal lobe. Radiologist's Impression: Chest X-Ray 09/16/21 07:56 XR chest 1V portable CLINICAL HISTORY: Stroke Like Symptoms. Evaluate cardiopulmonary status COMPARISON STUDY: 09/12/2021 TECHNIQUE: 1 view of the chest FINDINGS: Single frontal view of the chest demonstrates the heart to again be enlarged. The lungs are clear of alveolar opacities. There is no evidence for pleural effusion. There is no evidence for vascular congestion. There is no acute osseous pathology. IMPRESSION: 1. No acute cardiopulmonary disease. ACT 112: Negative or not required by law. Electronically signed by: Nehemiah Munoz M.D. 09/16/2021 8:[address] 09/16/21 07:[address] OF THE BRAIN; CT ANGIOGRAM OF THE BRAIN CLINICAL HISTORY: Strokelike symptoms. COMPARISON STUDY: CT of the brain dated 09/13/2021. CT angiogram of the brain dated 09/12/2021 and 06/19/2019. TECHNIQUE: Unenhanced axial CT scan of the brain is performed. Subsequently, following the IV administration of 120 cc of Optiray 320, CT angiogram of the brain was performed from the skull base to the vertex. Images are reviewed in the axial, sagittal, and coronal planes. 3-D MIPS images are created and assessed. IV contrast was administered without complication. A dose lowering technique was utilized adhering to the principles of ALARA. FINDINGS: Brain parenchyma: There is loss of hernandez-white matter differentiation identified in parafalcine left frontal lobe consistent with an evolving DULCE MARIA territory infarct. There is no hemorrhage or mass effect. There is no evidence of enhancing mass lesion on the angiogram phase images. No extra-axial fluid collection is seen. Ventricles, sulci, and cisterns: Normal in configuration. CT angiogram of the brain: The right A1 segment is diminutive. The internal carotid arteries are widely patent. Occlusion of the distal left anterior cerebral artery is similar to previous. The right anterior cerebral artery and both middle cerebral arteries are clear. The vertebrobasilar system and posterior cerebral arteries are widely patent. The left vertebral artery is dominant. The right vertebral artery is diminutive. There is no aneurysm identified throughout the intracranial circulation. Dural sinuses: Clear as visualized. Orbits: The bony orbits are intact. The orbital contents are normal as visualized. Sinuses and mastoids: The visualized paranasal sinuses are clear. The mastoid air cells are well pneumatized. Calvarium: Unremarkable. IMPRESSION: 1. There is a subacute/evolving left DULCE MARIA territory infarct. 2. There is no hemorrhage or mass effect. 3. Occlusion of the distal left anterior cerebral artery is similar to previous. 4. Otherwise unremarkable CT angiogram of the brain. ACT 112: Negative or not required by law. Electronically signed by: Riaz Wise M.D. 09/16/2021 8:36 AM Head CTA 09/16/21 07:[address] OF THE BRAIN; CT ANGIOGRAM OF THE BRAIN CLINICAL HISTORY: Strokelike symptoms. COMPARISON STUDY: CT of the brain dated 09/13/2021. CT angiogram of the brain dated 09/12/2021 and 06/19/2019. TECHNIQUE: Unenhanced axial CT scan of the brain is performed. Subsequently, following the IV administration of 120 cc of Optiray 320, CT angiogram of the brain was performed from the skull base to the vertex. Images are reviewed in the axial, sagittal, and coronal planes. 3-D MIPS images are created and assessed. IV contrast was administered without complication. A dose lowering technique was utilized adhering to the principles of ALARA. FINDINGS: Brain parenchyma: There is loss of hernandez-white matter differentiation identified in parafalcine left frontal lobe consistent with an evolving DULCE MARIA territory infarct. There is no hemorrhage or mass effect. There is no evidence of enhancing mass lesion on the angiogram phase images. No extra-axial fluid collection is seen. Ventricles, sulci, and cisterns: Normal in configuration. CT angiogram of the brain: The right A1 segment is diminutive. The internal carotid arteries are widely patent. Occlusion of the distal left anterior cerebral artery is similar to previous. The right anterior cerebral artery and both middle cerebral arteries are clear. The vertebrobasilar system and posterior cerebral arteries are widely patent. The left vertebral artery is dominant. The right vertebral artery is diminutive. There is no aneurysm identified throughout the intracranial circulation. Dural sinuses: Clear as visualized. Orbits: The bony orbits are intact. The orbital contents are normal as visualized. Sinuses and mastoids: The visualized paranasal sinuses are clear. The mastoid air cells are well pneumatized. Calvarium: Unremarkable. IMPRESSION: 1. There is a subacute/evolving left DULCE MARIA territory infarct. 2. There is no hemorrhage or mass effect. 3. Occlusion of the distal left anterior cerebral artery is similar to previous. 4. Otherwise unremarkable CT angiogram of the brain. ACT 112: Negative or not required by law. Electronically signed by: Riaz Wise M.D. 09/16/2021 8:36 AM Neck CTA 09/16/21 07:56 CT angio neck with con CLINICAL HISTORY: Stroke Like Symptoms . Recent Acute stroke 2 weeks ago . COMPARISON STUDY: 09/12/2021 CT DOSE: 1292.52 mGy.cm TECHNIQUE: CT Angio of the neck was performed.followed by image post processing with coronal, and sagittal MIP reformats.. Stenosis assessment by NASCET criteria. Contrast Volume: Optiray 320, 120 ml FINDINGS: Vascular findings: Right common carotid artery: Patent without significant stenosis. Right internal carotid artery: Patent without significant stenosis. Right vertebral artery: Patent without significant stenosis. Left common carotid artery: Patent without significant stenosis. Minimal atherosclerotic plaque is again seen involving the carotid bulb. Left internal carotid artery: Patent without significant stenosis. Left vertebral artery: Patent without significant stenosis. Left vertebral artery is again dominant. Nonvascular findings: The parotid and submandibular salivary glands appear normal. There is no enlarged cervical adenopathy noted. The airway appears patent. The thyroid gland appears within normal limits. The lung apices appear within normal limits. Impression: Essentially negative CT angiogram of the neck with contrast. There is no significant interval change. ACT 112: Negative or not required by law. Electronically signed by: Nehemiah Munoz M.D. 09/16/2021 8:25 AM ECG Data Attestation: I personally reviewed and interpreted this ECG as follows: Indication: + weakness Rate (beats per minute): 114 Rhythm: + atrial fibrillation ECG Intervals/blocks: + First degree AV block, + Right Bundle branch block and + Normal QT ECG [place]: + Normal ECG Findings: + Other (Nonspecific T wave abnormality) Comparison ECG Date: from (09/12/21) Change: no significant change MDM Narrative This patient comes in as described above. Based on his symptoms and his last known well of 630 I did call a stroke alert as he was still within the window for tPA or intervention. I did talk to Dr. Gore, the stroke neurologist even before I saw the patient. He does know the patient from when he saw the patient the other day for tnkase. I did review the patient's work-up from the other day and he did have an acute left anterior cerebral artery distribution infarct that was 3 x 1.7 cm with mild edema. He was taken straight to CAT scan for CAT scan of his head as well as CTA of the head and neck. I did look at the CT of his head and there is no acute hemorrhage seen he does have changes from a recent stroke. He was evaluated by the stroke neurologist. His EKG shows rapid A. fib. He was hemodynamically stable with this. His CAT scan shows no acute hemorrhage but he does have an old infarct. The neurologist feels that his symptoms are likely waxing and waning from his previous stroke but given the A. fib he could have thrown another clot. He does not feel he meets CVH criteria he is on a blood thinner and a recent stroke and tPA and his symptoms have si gnificantly better back to baseline. I agree with this. The patient's COVID test was negative. I have consulted Dr. Morrison and he will be admitted for further further treatment and evaluation. His high-sensitivity troponin was mildly elevated as it was when he was in the hospital the other day and this can continue to be trended while he is in the hospital I do not think this was an acute cardiac event. Continuous cardiac monitoring: An order was placed in the EMR for continuous cardiac tech. Upon my interpretation patient was noted to be in A. fib/flutter which was rapid at about 110. Impression & Plan Stroke, A-fib, Current use of snf anticoagulation, Acute right-sided muscle weakness, Lab test negative for COVID-19 virus Discharge Plan Visit Data Chief Complaint: Stroke Alert Stated Complaint: STROKE ALERT ED Provider: Nagi Ford Discharge Problem: Stroke, A-fib, Current use of director long term care anticoagulation, Acute right-sided muscle weakness, Lab test negative for COVID-19 virus Patient Disposition: Admitted As Inpatient Discharge Instructions Interventions: ED Discharge Assessment Last Done: 09/16/21 11:58 Discharge Problem: Stroke Qualifiers: CVA mechanism: unspecified Qualified Code(s): I63.9 - Cerebral infarction, unspecified A-fib Qualifiers: Atrial fibrillation type: persistent (not longstanding) Qualified Code(s): I48.19 - Other persistent atrial fibrillation
--- NOTE | 2021-09-16 08:21 | XRay Report ---
XR chest 1V portable CLINICAL HISTORY: Stroke Like Symptoms. Evaluate cardiopulmonary status COMPARISON STUDY: 09/12/2021 TECHNIQUE: 1 view of the chest FINDINGS: Single frontal view of the chest demonstrates the heart to again be enlarged. The lungs are clear of alveolar opacities. There is no evidence for pleural effusion. There is no evidence for vascular destiny estion. There is no acute osseous pathology. IMPRESSION: 1. No acute cardiopulmonary disease. ACT 112: Negative or not required by law. Electronically signed by: Nehemiah Munoz M.D. 09/16/2021 8:20 AM
--- NOTE | 2021-09-16 08:26 | CT Scan Report ---
CT angio neck with con CLINICAL HISTORY: Stroke Like Symptoms . Recent Acute stroke 2 weeks ago . COMPARISON STUDY: 09/12/2021 CT DOSE: 1292.52 mGy.cm TECHNIQUE: CT Angio of the neck was performed.followed by image post processing with coronal, and sa gittal MIP reformats.. Stenosis assessment by NASCET criteria. Contrast Volume: Optiray 320, 120 ml FINDINGS: Vascular findings: Right common carotid artery: Patent without significant stenosis. Right internal carotid artery: Patent without significant stenosis. Right vertebral artery: Patent without significant stenosis. Left common carotid artery: Patent without significant stenosis. Minimal atherosclerotic plaque is ag ain seen involving the carotid bulb. Left internal carotid artery: Patent without significant stenosis. Left vertebral artery: Patent without significant stenosis. Left vertebral artery is again dominant. Nonvascular findings: The parotid and submandibular salivary glands appear normal. There is no enlarged cervical adenopathy noted. The airway appears patent. The thyroid gland appears within normal limits. The lung apices ap pear within normal limits. Impression: Essentially negative CT angiogram of the neck with contrast. There is no significant int erval change. ACT 112: Negative or not required by law. Electronically signed by: Nehemiah Muonz M.D. 09/16/2021 8:25 AM
[2021-09-16 08:28] LABS: Basophils # (auto) 0.01 K/uL (0-0.2); Basophils % (auto) 0.2 %; Eosinophils # (auto) 0.06 K/uL (0-0.5); Hematocrit (blood only) 42.5 % (42-52); Hemoglobin 14.1 g/dL (14.0-18.0); Immature Granulocytes # (auto) 0.01 K/uL (0.00-0.02); Immature Granulocytes % (auto) 0.2 %; Lymphocytes # (auto) 1.57 K/uL (1.2-3.4); Mean Corpuscular Hemoglobin 29.1 pg (25-34); Mean Corpuscular Hgb Conc 33.2 g/dL (32-36); Mean Corpuscular Volume 87.8 fL (80-100); Mean Platelet Volume 11.2 fL (7.4-10.4); Monocytes # (auto) 1.13 K/uL (0.11-0.59); Monocytes % (auto) 19.4 %; Neutrophils # (auto) 3.04 K/uL (1.4-6.5); Neutrophils % (auto) 52.2 %; Platelet Count 186 K/uL (130-400); RDW Coefficient of Variation 14.6 % (11.5-14.5); RDW Standard Deviation 47.4 fL (36.4-46.3); Red Blood Count 4.84 M/uL (4.7-6.1); White Blood Count 5.82 K/uL (4.8-10.8)
[2021-09-16 08:36] LABS: INR 1.2 (0.9-1.1); Partial Thromboplastin Time 26.9 Seconds (21.0-31.0); Prothrombin Time 12.5 Seconds (9.0-12.0)
--- NOTE | 2021-09-16 08:37 | CT Scan Report ---
UNENHANCED CT OF THE BRAIN; CT ANGIOGRAM OF THE BRAIN CLINICAL HISTORY: Strokelike symptoms. COMPARISON STUDY: CT of the brain dated 09/13/2021. CT angiogram of the brain dated 09/12/2021 and 05/25. TECHNIQUE: Unenhanced axial CT scan of the brain is performed. Subsequently, following the IV adminis tration of 120 cc of Optiray 320, CT angiogram of the brain was performed from the skull base to the vertex. Images are reviewed in the axial, sagittal, and coronal planes. 3-D MIPS images are created a nd assessed. IV contrast was administered without complication. A dose lowering technique was utiliz ed adhering to the principles of ALARA. FINDINGS: Brain parenchyma: There is loss of hernandez-white matter differentiation identified in parafalcine left f rontal lobe consistent with an evolving DULCE MARIA territory infarct. There is no hemorrhage or mass effect. There is no evidence of enhancing mass lesion on the angiogram phase images. No extra-axial fluid co llection is seen. Ventricles, sulci, and cisterns: Normal in configuration. CT angiogram of the brain: The right A1 segment is diminutive. The internal carotid arteries are wide ly patent. Occlusion of the distal left anterior cerebral artery is similar to previous. The right an terior cerebral artery and both middle cerebral arteries are clear. The vertebrobasilar system and po sterior cerebral arteries are widely patent. The left vertebral artery is dominant. The right vertebr al artery is diminutive. There is no aneurysm identified throughout the intracranial circulation. Dural sinuses: Clear as visualized. Orbits: The bony orbits are intact. The orbital contents are normal as visualized. Sinuses and mastoids: The visualized paranasal sinuses are clear. The mastoid air cells are well pneu matized. Calvarium: Unremarkable. IMPRESSION: 1. There is a subacute/evolving left DULCE MARIA territory infarct. 2. There is no hemorrhage or mass effect. 3. Occlusion of the distal left anterior cerebral artery is similar to previous. 4. Otherwise unremarkable CT angiogram of the brain. ACT 112: Negative or not required by law. Electronically signed by: Riaz Wise M.D. 09/16/2021 8:36 AM
[2021-09-16 08:46] LABS: Albumin Globulin Ratio 1.1 (0.9-2); Albumin Level 4.1 gm/dl (3.4-5.0); BUN Creatinine Ratio 11.9 (10-20); Bilirubin,Total 1.1 mg/dl (0.2-1.0); Calcium 9.4 mg/dl (8.5-10.1); Creatinine Clr Calc Pharmacy 105.5 ml/min; Est GFR (African American) 91.9 ml/min; Est GFR (Non-African American) 79.3 ml/min; Globulin 3.6 gm/dl (2.5-4.0); Magnesium 1.9 mg/dl (1.7-2.4); Potassium 4.1 mmol/L (3.5-5.1); Total Protein 7.7 gm/dl (6.0-8.3)
[2021-09-16 08:50] LABS: Troponin I High Sensitivity 28.1 pg/ml (0-20)
[2021-09-16] MEDS ORDERED: LACTATED RINGER'S 1,000 ML IV SCH (10:00)
--- NOTE | 2021-09-16 10:09 | Electrocardiogram Report ---
Test Reason : Blood Pressure : / mmHG Vent. Rate : 114 BPM Atrial Rate : 375 BPM P-R Int : 000 ms QRS Dur : 136 ms QT Int : 332 ms P-R-T Axes : 000 032 -68 degrees QTc Int : 457 ms Atrial flutter with variable A-V block with premature ventricular or aberrantly conducted complexes Right bundle branch block T wave abnormality, consider inferolateral ischemia Abnormal ECG When compared with ECG of 12-SEP-2021 15:42, Atrial flutter has replaced Atrial fibrillation Confirmed by Dimas Kirby ([id number]) on 09/16/2021 10:09:36 AM Referred By: Jennifer DELGADO Confirmed By:Dimas Kirby
[2021-09-16] MEDS ORDERED: METOPROLOL TARTRATE 25 MG TAB PO ONE ×2 (10:15→13:30)
[2021-09-16] MEDS ORDERED: POLYETHYLENE (MIRALAX) 17 GM PACK PO PRN (12:12)
[2021-09-16] MEDS ORDERED: ACETAMINOPHEN 325 MG TAB PO PRN (12:12)
[2021-09-16] MEDS ORDERED: PHARMACIST DISCHARGE MED REC CONSULT PRN (12:12)
[2021-09-16] MEDS ORDERED: ALUMINUM/MAGNESIUM SUSP 30 ML UDC PO PRN (12:12)
[2021-09-16] MEDS ORDERED: ONDANSETRON INJ 2 MG/ML 2 ML VIAL IV PRN (12:12)
[2021-09-16] MEDS ORDERED: MAGNESIUM HYDROXIDE SUSP 30 ML UDC PO PRN (12:12)
--- NOTE | 2021-09-16 15:38 | Electrocardiogram Report ---
Test Reason : Blood Pressure : / mmHG Vent. Rate : 101 BPM Atrial Rate : 312 BPM P-R Int : 000 ms QRS Dur : 136 ms QT Int : 376 ms P-R-T Axes : 000 053 -71 degrees QTc Int : 487 ms Atrial flutter with variable A-V block Right bundle branch block Minimal voltage criteria for LVH, may be normal variant Marked T-wave abnormality, consider inferolateral ischemia Abnormal ECG When compared with ECG of 16-SEP-2021 08:18, No significant change Confirmed by Dimas Kirby ([id number]) on 09/16/2021 3:38:35 PM Referred By: Jennifer DELGADO Confirmed By:Dimas Kirby
[2021-09-16] MEDS ORDERED: GADOBUTROL 65ML VIAL IV ONE (18:22)
--- NOTE | 2021-09-16 19:15 | History & Physical Report ---
Date of Service September 16, 2021 Assessment & Plan (1) Stroke: Plan: He shows right-sided neurodeficitsbut is not really clear if he is having new stroke or unmasking/recrudescence of his stroke from earlier in the weekpossibly due to poor for perfusion from his RVR. He has been seen by stroke neuro from [facility] and repeat thrombolytics/other acute management was not deemed to be indicated. Neck step will be checking an MRI and comparing it to previouslooking for any new area of ischemia versus simply a the area from earlier in the weekwhich would be more confirmatory for recrudescence. Given that that is high on my suspicion, will give IV fluids, and try to control his rate. (2) A-fib: Plan: Mild degree of RVR, but is symptomatic. If that is leading to some poor forward flow, that may be part of the stroke recrudescence picture. Control rate with additional metoprolol, continue anticoagulation (3) Chest pain: Plan: EKGs appear to have chronic ST repolarization changesprobably due to LVH. Troponin is only nominally elevatedand on recheck trending down. Continue home meds (4) HTN (hypertension): Plan: Blood pressures reasonable given the situation, continue home meds, as well as additional metoprolol to try to control rate better. (5) Type 2 diabetes mellitus: Plan: A1c earlier this week was 7.1%, metformin on hold due to IV contrast, otherwise continue home meds (6) DVT prophylaxis: Plan: Anticoagulated (7) Discharge planning issues: Plan: [facility], plan as above Admission and Anticipated Discharge Date Admission Date: September 16, 2021 History of Present Illness Chief Complaint: Right-sided weakness Primary Care Provider: SANDY Rodriguez Patient is a very pleasant 51-year-old male who presents with right-sided weakness starting around 630 this morning. He was just here a few days ago having had what appears to be an embolic stroke related to atrial fibrillation. He was given thrombolytics had significant improvement started on anticoagulation and discharged. Since like he was doing fairly well until this morning, whenever he had resumption of his right-sided weaknesssame area as before its just that he was better for a few days and now worse again. Incidentally he also was noted to have some degree of RVR with his Re[facility] ward notes that he is feeling a degree of heart racing as well. No other symptoms. Review of systems otherwise negative except for as above Allergies Allergy/AdvReac Type Severity Reaction Status Date / Time fish derived Allergy Unknown Verified 09/16/21 08:17 shellfish derived Allergy Unknown Verified 09/16/21 08:17 Home Medications Medication Instructions Recorded Confirmed Type aspirin 81 mg tablet,delayed 81 mg PO QAM #30 tab 06/22/19 09/16/21 Rx release (Ecotrin Low Strength) metoprolol tartrate 100 mg tablet 100 mg PO BID tab 05/27/21 09/16/21 History glipizide 5 mg tablet 5 mg PO BID 09/12/21 09/16/21 History olopatadine 0.1 % eye drops 1 drp OPB BID 09/12/21 09/16/21 History apixaban 5 mg tablet 5 mg PO BID #90 tab 09/14/21 09/16/21 Rx atorvastatin 40 mg tablet 80 mg PO QAM #30 tab 09/14/21 09/16/21 Rx metformin 500 mg tablet 500 mg PO BID #60 tab 09/14/21 09/16/21 Rx losartan 50 mg tablet 50 mg PO QAM 09/16/21 09/16/21 History Past Med/Surg History Medical History Anxiety Chest pain Eczema History of alcohol abuse History of drug abuse History of tobacco use HTN (hypertension) Surgical History Status post tendon repair history left finger tendon repair Family History Brother Coronary heart disease [place] in early 40's Stroke, Onset Age: 42 Father Stroke Stomach cancer Mother Stroke Uncle Stomach cancer Social History Smoking Status: Never smoker Tobacco Type: Cigarettes Second Hand Exposure: Yes; Hx Alcohol Use: No Hx Substance Use: No Preferred Language: Ukrainian Communication Ability: Effective Marketing Manager Required: No Beliefs That Will Affect Care: None Current Living Situation: Other Current Living Situation Comment: inmate Other Information That Helps Us Care for You: No Feels Safe at Home: Yes Safety Concerns: Feels Safe At This Time Assistive Devices: None Review of Systems Review of Systems: All systems reviewed & are unremarkable except as noted in HPI & below Physical Exam Physical Exam: In general he is awake alert oriented x3 pleasant no distress. HEENT normocephalic atraumatic mucous membranes moist. Cardio is irregularly irregular somewhat tachycardic no rubs murmurs or gallops. Lungs are clear to auscultation bilaterally no rales rhonchi or wheeze with good effort. Abdomen soft nondistended nontender no masses organomegaly. Extremities show no cyanosis clubbing or edema no calf tenderness. Skin shows no rashes, no pallor, no icterus. Neuro shows cranial nerves II through XII be grossly intact interestingly there is not really much of any facial droop. He has right-sided arm weakness that is probably 3 out of 5 compared 4+ to 5 out of 5 (he does note that he is right-handed) and he has right-sided leg weakness that is probably 3- out of 5 while the left is 4+ to 5 out of 5. Sensory seems to be intact bilaterally. Musculoskeletal yields no gross lesions. Mental status shows good recent and remote recall normal mood and affect good judgment and insight. Results & Data Results & Data ([facility]) Vital Signs (Past 12 Hours) Vital Signs Temp Pulse Pulse Resp BP BP BP 09/16/21 15:59 102 H 09/16/21 15:54 98.2 F 114 H 66 18 130/92 09/16/21 12:20 98.2 F 93 H 16 136/94 09/16/21 11:00 94 H 13 131/81 09/16/21 10:30 107 H 14 09/16/21 10:16 09/16/21 10:06 107 H 17 130/80 09/16/21 10:00 108 H 14 09/16/21 09:30 98 H 21 09/16/21 09:00 102 H 12 132/85 09/16/21 08:45 108 H 16 140/87 09/16/21 08:42 112 H 18 150/85 H 09/16/21 08:30 118 H 15 148/100 H 09/16/21 08:20 109 H 18 131/99 09/16/21 08:17 127 H 21 09/16/21 07:52 97.7 F 124 H 16 131/99 Pulse Ox 09/16/21 15:59 09/16/21 15:54 97 09/16/21 12:20 98 09/16/21 11:00 97 09/16/21 10:30 98 09/16/21 10:16 98 09/16/21 10:06 97 09/16/21 10:00 100 09/16/21 09:30 98 09/16/21 09:00 98 09/16/21 08:45 98 09/16/21 08:42 91 09/16/21 08:30 98 09/16/21 08:20 98 09/16/21 08:17 96 09/16/21 07:52 98 Code Status & VTE Plan VTE Prophylaxis Plan VTE Prophylaxis will be ordered: Yes PG Care Time/CCT Total # of Minutes Spent Total Time Spent with Patient: Total time spent is greater than 50% in coordination of care (as documented) at patient's floor/unit and/or counseling patient: Coding Level of Care Code INT OBSERVATION CARE 70M LVL 3 Diagnoses Stroke I63.9 CVA mechanism: unspecified A-fib I48.19 Atrial fibrillation type: persistent (not longstanding) Chest pain R07.9 HTN (hypertension) I10 Hypertension type: essential hypertension Type 2 diabetes mellitus E11.9 DVT prophylaxis Z29.9 Discharge planning issues Z02.9 (1) Stroke CVA mechanism: unspecified Qualified Code(s): I63.9 - Cerebral infarction, unspecified (2) A-fib Atrial fibrillation type: persistent (not longstanding) Qualified Code(s): I48.19 - Other persistent atrial fibrillation (3) HTN (hypertension) Hypertension type: essential hypertension Qualified Code(s): I10 - Essential (primary) hypertension
--- NOTE | 2021-09-16 19:22 | Magnetic Resonance Report ---
MR brain wo/w con CLINICAL HISTORY: recent stroke, focal neuro deficits TECHNIQUE: Multiplanar and multisequence MR images of the brain were obtained prior to and following administration of gadolinium contrast. Comparison: Comparison is made to MRI brain 09/12/2021 FINDINGS: No abnormal restricted diffusion is identified. There is restricted diffusion compatible with a left anterior cerebral artery administration of infarct. It is similar in extent but more defined than in the prior exam. The ventricular system is normal in appearance. There is mild mass effect with rightw nirmala midline shift of approximately 3 mm. There is no evidence of acute intraparenchymal hemorrhage. N o extra axial fluid collections are seen. The corpus callosum, pituitary gland, and cerebellar tonsil s appear grossly unremarkable. Flow voids of the major intracranial arterial vessels are identified. The imaged portions of the para nasal sinuses, mastoid air cells, and orbits are unremarkable. IMPRESSION: Redemonstration of left anterior cerebral artery stroke with associated edema. No hemorrhagic convers ion is seen. ACT 112: Negative or not required by law. Electronically signed by: Rio Lanier M.D. 09/16/2021 7:20 PM
[2021-09-16] MEDS: APIXABAN 5 MG TABLET PO SCH (20:51)
[2021-09-16] MEDS: glipiZIDE 5 MG TAB PO SCH (20:51)
[2021-09-16] MEDS: METOPROLOL TARTRATE 100 MG TAB PO SCH (20:51)
[2021-09-16] MEDS ORDERED: NON-FORMULARY MEDICATION (Olopatadine 0.1 % Drops) OPB SCH (21:00)
[2021-09-17] MEDS: APIXABAN 5 MG TABLET PO SCH (08:47)
[2021-09-17] MEDS: glipiZIDE 5 MG TAB PO SCH (08:48)
[2021-09-17] MEDS: METOPROLOL TARTRATE 100 MG TAB PO SCH (08:49)
[2021-09-17] MEDS ORDERED: ATORVASTATIN 40 MG TAB PO SCH (09:00)
[2021-09-17] MEDS ORDERED: LOSARTAN POTASSIUM 50 MG TAB PO SCH (09:00)
[2021-09-17] MEDS ORDERED: ASPIRIN 81 MG ECTAB PO SCH (09:00)
--- NOTE | 2021-09-17 09:38 | Discharge Summary ---
Date of Service September 17, 2021 Admission HPI Per Admitting Provider Patient is a very pleasant 51-year-old male who presents with right-sided weakness starting around 630 this morning. He was just here a few days ago having had what appears to be an embolic stroke related to atrial fibrillation. He was given thrombolytics had significant improvement started on anticoagulation and discharged. Since like he was doing fairly well until this morning, whenever he had resumption of his right-sided weaknesssame area as before its just that he was better for a few days and now worse again. Incidentally he also was noted to have some degree of RVR with his A. sylvia notes that he is feeling a degree of heart racing as well. No other symptoms. Review of systems otherwise negative except for as above Admission Exam Per Admitting Provider In general he is awake alert oriented x3 pleasant no distress. HEENT normocephalic atraumatic mucous membranes moist. Cardio is irregularly irregular somewhat tachycardic no rubs murmurs or gallops. Lungs are clear to auscultation bilaterally no rales rhonchi or wheeze with good effort. Abdomen soft nondistended nontender no masses organomegaly. Extremities show no cyanosis clubbing or edema no calf tenderness. Skin shows no rashes, no pallor, no icterus. Neuro shows cranial nerves II through XII be grossly intact interestingly there is not really much of any facial droop. He has right-sided arm weakness that is probably 3 out of 5 compared 4+ to 5 out of 5 (he does note that he is right-handed) and he has right-sided leg weakness that is probably 3- out of 5 while the left is 4+ to 5 out of 5. Sensory seems to be intact bilaterally. Musculoskeletal yields no gross lesions. Mental status shows good recent and remote recall normal mood and affect good judgment and insight. Principal Diagnosis Stroke Discharge Exam Constitutional: well-appearing, no acute distress CV: irregularly irregular rhythm, no murmur appreciated, extremities well- perfused, no LE edema Resp: CTABL, no wheezes/rales/rhonchi appreciated, no increased work of breathing Neuro: alert, oriented, CN2-12 grossly intact, RUE/RLE strength 4/5, LUE/LLE strength 5/5 Discharge Data Allergies Allergy/AdvReac Type Severity Reaction Status Date / Time fish derived Allergy Unknown Verified 09/16/21 08:17 shellfish derived Allergy Unknown Verified 09/16/21 08:17 Consultations 09/16/21 09:07 ED Decision to Admit Stat Ordered Studies 09/16/21 07:56 CT angio head w con Stat CT angio neck with con Stat CT head/brain wo con Stat 09/16/21 12:12 MR brain wo/w con Routine Hospital Course (1) Acute ischemic stroke: Stroke Patient presented with right-side neurodeficits in the setting of recent CVA (09/12/21) which had similar symptoms Differential includes repeat stroke vs recrudescence of prior stroke, possibly secondary to poor perfusion from AF with RVR Patient was evaluated by [facility] stroke team, who felt repeat thrombolytics or other acute managment was not indicated MRI showed redemonstration of L anterior cerebral artery stroke with associated edema Patient showed symptomatic improvement on hospital day two and was felt stable for discharge Continue eliquis 5mg twice daily, ASA 81mg daily, atorvastatin 80mg daily Continue BP control (below) Highly encourage PT/OT to work on strength Outpatient follow-up with PCP and neurology recommended Atrial fibrillation with RVR Patient in afib on admission with rates elevated to 120s Rates had improved to 70s by hospital day two Continue eliquis as above, continue metoprolol 100mg twice daily Chest pain EKG showed chronic ST reporalization changes, likely secondary to LVH Troponin was slightly elevated on admission, and trended downard upon recheck Continue home meds HTN BP only mildly elevated on admission Continue losartan 50mg daily, metoprolol 100mg twice daily DM2 HbA1c 7.1% (09/13/21) Patient's home regimen held on admission Continue BSG checks, sliding-scale insulin, hypoglycemic protocol (2) A-fib: (3) Acute right-sided muscle weakness: (4) Chest pain: (5) Current use of [facility] anticoagulation: (6) Elevated troponin: (7) History of CVA (cerebrovascular accident): (8) HTN (hypertension): (9) Type 2 diabetes mellitus: Total Time Total Time Spent Total Time Spent (In Minutes): <30 Discharge Plan Discharge Items [facility] Reason For Visit: STROKE EVAL Discharge Diagnosis: Stroke Activity: Resume your previous activity Non-emergency contact: Primary Care Provider and Neurologist Call non-emergency contact if: your symptoms worsen Follow-up/Referrals: Jennifer DELGADO [Primary Care Provider] - Diet: Heart Healthy Addtl Attending Provider Instructions: Stroke Patient presented with right-side neurodeficits in the setting of recent CVA (09/12/21) which had similar symptoms Differential includes repeat stroke vs recrudescence of prior stroke, possibly secondary to poor perfusion from AF with RVR Patient was evaluated by [facility] stroke team, who felt repeat thrombolytics or other acute managment was not indicated MRI showed redemonstration of L anterior cerebral artery stroke with associated edema Patient showed symptomatic improvement on hospital day two and was felt stable for discharge Continue eliquis 5mg twice daily, ASA 81mg daily, atorvastatin 80mg daily Continue BP control (below) Highly encourage PT/OT to work on strength Outpatient follow-up with PCP and neurology recommended Atrial fibrillation with RVR Patient in afib on admission with rates elevated to 120s Rates had improved to 70s by hospital day two Continue eliquis as above, continue metoprolol 100mg twice daily Chest pain EKG showed chronic ST reporalization changes, likely secondary to LVH Troponin was slightly elevated on admission, and trended downard upon recheck Continue home meds HTN BP only mildly elevated on admission Continue losartan 50mg daily, metoprolol 100mg twice daily DM2 HbA1c 7.1% (09/13/21) Patient's home regimen held on admission Continue BSG checks, sliding-scale insulin, hypoglycemic protocol Pending Studies at Discharge: No Skilled Items Patient informed of condition?: Yes DNR: No Discharge Level of Care: Other Communicable Disease: No Discharge Prognosis: Improving Lines: None Urinary Catheter: No Medications and DC Order Prescriptions: Continued metoprolol tartrate 100 mg tablet 100 mg PO BID RF: 0 aspirin [Ecotrin Low Strength] 81 mg Tablet,Delayed Release (Dr/Ec) 81 mg PO QAM Qty: 30 RF: 2 olopatadine 0.1 % Drops 1 drp OPB BID RF: 0 glipizide 5 mg Tablet 5 mg PO BID RF: 0 apixaban 5 mg tablet 5 mg PO BID Qty: 90 RF: 0 atorvastatin 40 mg Tablet 80 mg PO QAM Qty: 30 RF: 2 metformin 500 mg tablet 500 mg PO BID Qty: 60 RF: 0 losartan 50 mg Tablet 50 mg PO QAM RF: 0 Krames/Other Patient Handouts: Stroke Prevent Live W Atrial Fib Admission Data Admit Date/Time: 09/16/21 09:11 Attending Provider: Christ Morrison Admit Provider: Christ Morrison Primary Care Provider: Jennifer DELGADO Other Providers: Christ Morrison Other Interventions: Discharge Summary Assessment (RN) Last Done: 09/17/21 12:31 Supervising Physician Co-Signing Physician Notes I personally examined the patient and verified all crawley points of history and exam, discussed case, and agree with decision making with Dr Zaman Weakness improving a little. No new complaints otherwise. Vitals noted, in general he is awake and alert pleasant no distress. HEENT normocephalic atraumatic mucous membranes moist. Right upper extremity now about 4-5 strength lower extremity probably about 3 out of 5definitely improved from yesterday. Recent embolic strokehas recurrence of neurodeficits with hindsight appears to have been heber-infarct edemafortunately no new strokes noted. He is stable for discharge. Discussed outpatient PT, and with the limitations of physical therapy in the [facility] system, also discussed the overall goals of PT and some suggestions on what to do to try to maximize his holiness of function. A. fib is now rate controlled, continue anticoagulation. Outpatient follow-up. Stable for discharge Resident Activity Tracking Resident Involvement: Resident Care Provided Care Provided: Adult Hospital Medicine
--- NOTE | 2021-09-17 19:24 | Billing Data ---
Date of Service September 17, 2021 Coding Level of Care Code 01158 OBS Care - Discharge
== END 2021-09-17 14:12 ==
LOC: 2S 07:57 → ED 07:57 → 2S 11:58